=== PATIENT | female | born 1945 | race Caucasian/White ===

== ENCOUNTER 2023-06-22 09:08 | Emergency (ER) | payer MEDICARE, BC, SELFPAY ==
[2023-06-22] VITALS (7 sets, daily range): BP systolic 111–157; BP diastolic 80–96; BMI 31.1
--- NOTE | 2023-06-22 09:35 | ED.GENMED ---
History of Present Illness
General
Chief Complaint: Breathing Problem
Source: patient
Time Seen by Provider: 06/22/23 09:22
Travel History
Have you had any contact with someone who has COVID-19?: No
Do you have any symptoms of coronavirus? Fever > 100 degrees, chills, cough, shortness of breath, sore throat, loss of taste or smell, muscle aches, or headache?: Yes
Symptoms:: shortness of breath
History of Present Illness
History of Present Illness:
78-year-old female presents to the emergency room complaining of 2 separate issues. First she is experiencing discomfort in her left foot and ankle. Patient lost her balance and twisted her left foot and ankle. She has pain with weightbearing.
Injury occurred 2 weeks ago. She thought it be better by now. In addition the patient is experiencing shortness of breath with exertion. She is comfortable at rest. She denies any black or bloody stools but she does have a history of anemia.
She denies any chest pain. No fever no cough.
Past History
Past History
ED Past Medical History: HTN, NIDDM and Other (Iron deficiency anemia)
ED Past Surgical History: , Gynecological and Orthopedic
Social History
Tobacco: Non-smoker
Alcohol: None
Drug: None
Personal:
Living: with family
Employment: Retired
Phy Exam
Physical Exam
Physical Exam:
General: Awake, Alert, Oriented X3. No acute distress.
Vitals: unremarkable
Head: Atraumatic
Eyes: Pupils equal, EOMI
Throat: Airway intact, no exudates
Neck: Trachea midline
Lungs: Clear and equal b/l
Heart: Regular rate, no murmurs
Abd: Soft, Nontender, No pulsatile mass
Neuro: Nonfocal
Skin: Warm, dry, no rash
Extremities: pulses equal b/l, mild swelling noted left ankle. Mild tenderness palpation over the dorsal surface of the foot close to the ankle mortise. Also some tenderness over the lateral malleolus.
Scores
Heart Failure Risk
Heart Failure Risk Score: Yes
History of Stroke or TIA: No
History of intubation for respiratory distress: No
Heart rate on ED arrival >/= 110: No
SaO2 <90% on arrival on room air: No
HR >/=110 during 3min walk test (or too ill to perform test): No
ECG has acute ischemic changes: No
Urea >/=12mmol/L (BUN 33.6mg/dL): No
Serum CO2>/=35mmol/L: No
Troponin I or T elevated to [place] Level (0.4mg/dL): No
NT-proBNP >/=5,000ng/L (5,000pg/ml): Yes
HF Risk Score: 1
Admission Status: MEDIUM RISK 5.1% Consider observation or discharge to home with homecare & f/u visit to PCP/Commissioned Police Officer, or SNF for treatment
Course
Orders/Labs/Results
Orders:
Orders
06/22/23 09:33
Ankle, left 3 view CR [CR Ankle - Left Min 3 Views ] Urgent
Comment:
Reason For Exam: pain after fall
Foot, Left 3 View [CR Foot - Left Min 3 Views] Urgent
Comment:
Reason For Exam: pain after fall
06/22/23 09:34
CR Chest - 2 Views Urgent
Comment:
Reason For Exam: shortness of breath with exertion
06/22/23 09:38
Basic Metabolic Panel Urgent
Complete Blood Count/With Diff Urgent
06/22/23 10:21
BNP [NT-proBNP] Stat
06/22/23 10:59
Furosemide [Lasix] 20 mg IV NOW STA
06/22/23 11:53
EKG [Electrocardiogram (*1)] Routine
Reason for Study: Fatigue / Weakness
06/22/23 12:06
EKG- Treatment ONCE
Abnormal Lab Results
06/22/23
09:38
RBC 3.78 L 10^6/uL
(4.20-5.40)
Hgb 10.5 L g/dL
(12.0-16.0)
Hct 32.7 L %
(37.0-47.0)
MCHC 32.1 L g/dL
(33.0-37.0)
RDW 16.1 H %
(11.5-14.5)
Absolute Neuts (auto) 7.5 H 10^3/uL
(1.4-6.5)
Absolute Lymphs (auto) 0.7 L 10^3/uL
(1.2-3.4)
Neutrophils % 84.7 H %
(42.2-75.2)
Lymphocytes % 8.2 L %
(20.5-51.1)
Carbon Dioxide 21 L mmol/L
(22-30)
BUN 26 H mg/dl
(7-17)
Creatinine 1.1 H mg/dL
(0.6-1.0)
Glucose 211 H mg/dl
(70-99)
06/22/23 09:38
06/22/23 09:38
Vital Signs
Initial and Last Documented VS:
Initial Vital Signs
Temp Pulse Resp BP Pulse Ox
98.1 F 106 20 138/94 98
06/22/23 09:10 06/22/23 09:10 06/22/23 09:10 06/22/23 09:10 06/22/23 09:10
Last Documented Vital Signs
Temp Pulse Resp BP Pulse Ox
98.1 F 81 22 114/80 96
06/22/23 09:10 06/22/23 12:38 06/22/23 12:38 06/22/23 12:38 06/22/23 12:38
MDM/Problems Addressed
Differential Diagnosis Includes:
anemia, chf, valvular dz
MDM/Problems Addressed:
Patient appears comfortable at rest. She does have mild pulmonary edema on chest x-ray and her BNP is moderately elevated. Patient does not appear ill enough to require hospitalization. However we will initiate Lasix. IV Lasix given here.
Cardiology consultation obtained through Dr. Richardson. He recommends continuing Lasix on a as needed basis. They will arrange a more timely outpatient follow-up appointment.
Chronic conditions affecting care: HTN and Other (valvular dz)
*Radiology
Radiology exam reviewed: preliminary read by ED provider (Personally reviewed patient's chest x-ray. Mild pulmonary edema noted)
*Pulse Oximetry
Patient hypoxic: no
*Critical Care Note
Total Time (30-74mins, 75-104mins- exclusive of procedures): Not Applicable
ED Attending Note
-
Portions of this chart may have been created with voice recognition software.� Occasional wrong word or��sound alike� substitutions may have occurred due to the inherent limitations of voice recognition software.
Discharge Plan
Departure
Patient Disposition: Home (Routine Discharge)
Date of Disposition: 06/22/23
Time of Disposition: 12:27
Patient with high blood pressure during this ER visit?: No
Condition: Good
Discharge Problem:
CHF (congestive heart failure), Dyspnea on exertion, Ankle sprain
Instructions: *CBC Heart Failure Instructions, BLOOD PRESSURE
Prescriptions:
New
furosemide [Lasix] 20 mg tablet
20 mg PO DAILY PRN (Reason: Weight gain) Qty: 30 0RF
No Action
rosuvastatin 5 MG tablet
5 mg PO MOWEFR
Januvia 100 MG tablet
100 mg PO DAILY
cholecalciferol (vitamin D3) 2,000 UNITS tablet
5,000 units PO DAILY
multivitamin with folic acid [Tab-A-Pat] 1 TABLET tablet
1 tab PO DAILY
lisinopril 10 MG tablet
10 mg PO DAILY
biotin 5 mg Capsule
5 mg PO DAILY
metformin 500 mg tablet extended release 24 hr
1,500 mg PO QPM
Rx Instructions:
with Dinner
metformin 500 mg tablet extended release 24 hr
500 mg PO DAILY@0800
ferrous sulfate [Feosol] 325 MG tablet
325 mg PO DAILY
Patient Comments:
ON HOLD
acetaminophen 500 mg Tablet
1,000 mg PO Q6H PRN (Reason: mild pain)
omeprazole-sodium bicarbonate [Zegerid] 40-1.1 mg-gram Capsule
1 cap PO BID
Insulin Glargine Lantus [Lantus] 17 UNITS
Subcutaneous Insulin Syringe [Syringe-Insulin] 0 UNIT
As Directed mls/hr SC HS
Ordered By: Keaton Rogers MD
Last Taken: Unknown
Referrals:
Kendrick Ivory DO [Family Provider] -
Farzaneh Taylor CRNP [Specified Professional Personl] - 07/15/23 10:00 am
Activity Restrictions/Additional Instructions:
Follow-up with Dr. Wren as scheduled. I have sent a prescription for Lasix which you should take if you gain more than 2 to 3 pounds in 24 hours, no increasing swelling in your ankles or you feel like you are having increasing shortness of breath.
Interventions
Interventions:
*Risk Screen - Suicide Last Done: 06/22/23 09:38
*General Assessment Last Done: 06/22/23 09:38
*Neglect/Abuse Screening Last Done: 06/22/23 09:38
ED- Fall Risk Assessment Last Done: 06/22/23 09:38
*ED COVID-19 Vaccine History Last Done: 06/22/23 09:38
*Nursing Disposition Last Done: 06/22/23 12:44
ED- Cardiac Assessment Last Done: 06/22/23 09:38
ED-Musculoskeletal Assessment Last Done: 06/22/23 09:38
ED- Pulmonary Assessment Last Done: 06/22/23 09:38
Discharge Date and Time
Discharge Date/Time: 06/22/23 12:44
[2023-06-22 09:56] LABS: % Basophils 0.6 % (0-2); % Eosinophils 1.4 % (0-6); % Immature Granulocytes 0.2 % (0-0.5); % Lymphocytes 8.2 % (20.5-51.1); % Monocytes 4.9 % (1.7-9.3); % Neutrophils 84.7 % (42.2-75.2); Absolute Basophils 0.1 10^3/uL (0-0.2); Absolute Eosinophils 0.1 10^3/uL (0-0.7); Absolute Lymphocytes 0.7 10^3/uL (1.2-3.4); Absolute Monocytes 0.4 10^3/uL (0.1-0.6); Absolute Neutrophils 7.5 10^3/uL (1.4-6.5); Hematocrit 32.7 % (37.0-47.0); Hemoglobin 10.5 g/dL (12.0-16.0); Mean Corp Hgb Conc. 32.1 g/dL (33.0-37.0); Mean Corpuscular Hgb 27.8 pg (27.0-31.0); Mean Corpuscular Volume 86.5 fL (81.0-99.0); Nucleated Red Blood Cells % 0 %; Platelet Count 350 10^3/uL (130-400); Red Blood Cell Count 3.78 10^6/uL (4.20-5.40); Red Cell Dist. Width 16.1 % (11.5-14.5); White Blood Cell Count 8.8 10^3/uL (4.8-10.8)
[2023-06-22 10:16] LABS: Blood Urea Nitrogen 26 mg/dl (7-17); Chloride 107 mmol/L (98-107); Estimated Creatinine Clearance 35 ml/min; Glucose 211 mg/dl (70-99); Sodium 137 mmol/L (135-145); eGFR 51.11
[2023-06-22 10:17] LABS: Calcium 9.4 mg/dl (8.4-10.2); Carbon Dioxide 21 mmol/L (22-30)
--- NOTE | 2023-06-22 10:46 | CON.CAR ---
Addendum entered and electronically signed by Kiko Richardson MD 06/22/23 13:35:
78 yo female with PMH of aortic stenosis twisted her ankle on a curb. She also reports DOOLEY, which seems chronic. No chest pain. Exam with RRR, III/ systolic murmur at RUSB, no edema. Tele: SR, PVC's.
DOOLEY. Seems chronic. Will discharge on lasix prn.
Aortic stenosis. We will arrange for outpatient echo and follow up in our office.
Original Note:
Consultation
Consultation Request
Date/Time Consultation Requested: 06/22/23 10:40
Date/Time Consultation Performed: 06/22/23 11:00
Requesting Provider: Dr. Bonner
Performing Provider: LONDON Boyd for Dr. Richardson
Reason for Consultation: Dyspnea on exertion
Medical History
-
Chief Complaint: Left ankle pain
History of Present Illness:
Claire Bonilla is a 78 year old female (known to Dr. Garcia at [place]), aortic stenosis, GERD, hypertension, dyslipidemia, type 2 diabetes mellitus, and chronic anemia who presented to the emergency department 06/22/2023 with a chief complaint of
left ankle pain. She reports that she rolled her ankle while getting off of a very short curb. This occurred nearly 2 weeks ago. She denies improvement in her range of motion and pain despite significant time passing. Upon further evaluation she
endorsed dyspnea on exertion. She believes this started 9 years ago. Over the past 6 months she believes her dyspnea on exertion has been slightly worse. She would rated mild in severity. She denies PND, orthopnea, and weight gain. She has a
left lower extremity edema however is reporting orthopedic injury. She believes her right ankle is normal size for her. She sees Dr. Garcia and reports her valve disease has been 'stable'. She obtains her yearly echocardiograms in September. She has
known chronic anemia and this has been evaluated.
She is transferring care to Dr. Richardson.
Past Medical History
Past Medical History: GERD, HTN, Hypercholesterolemia, NIDDM, Valvular Disease (Aortic stenosis) and Other (chronic anemia)
Past Surgical History: , Gynecological, Orthopedic and Tonsilectomy
Social History
Tobacco: Non-Smoker
Personal:
Living: With Family
Family History
Family History: Reviewed & Not Pertinent
Allergies / Home Medications
Allergy/AdvReac Type Severity Reaction Status Date / Time
[id number] Reductase AdvReac muscle Verified 06/22/23 09:14
Inhibitor pain,
still
takes 3
times a
week
Medication Instructions Recorded Confirmed Type
cholecalciferol (vitamin D3) 50 5,000 units PO DAILY Supplement 07/05/20 01/28/23 History
mcg (2,000 unit) tablet
multivitamin with folic acid 400 1 tab PO DAILY Supplement 07/05/20 01/28/23 History
mcg tablet (Tab-A-Pat)
rosuvastatin 5 mg tablet 5 mg PO MOWEFR High cholesterol 07/05/20 01/28/23 History
sitagliptin phosphate 100 mg 100 mg PO DAILY Diabetes 07/05/20 01/28/23 History
tablet (Januvia)
lisinopril 10 mg tablet 10 mg PO DAILY Blood pressure 12/31/20 01/28/23 History
biotin 5 mg capsule 5 mg PO DAILY Supplement 09/12/22 01/28/23 History
metformin 500 mg tablet,extended 1,500 mg PO QPM Diabetes 09/12/22 01/28/23 History
release 24 hr
metformin 500 mg tablet,extended 500 mg PO DAILY@0800 Diabetes 09/12/22 01/28/23 History
release 24 hr
ferrous sulfate 325 mg (65 mg 325 mg PO DAILY Hormonal agent 09/13/22 01/28/23 History
iron) tablet (Feosol)
acetaminophen 500 mg tablet 1,000 mg PO Q6H PRN mild pain 01/28/23 01/28/23 History
omeprazole 40 mg-sodium 1 cap PO BID 01/28/23 01/28/23 History
bicarbonate 1.1 gram capsule
(Zegerid)
Insulin Glargine Lantus As Directed mls/hr SC HS 02/09/23 Rx
[Lantus] 17 units
Review of Systems
-
History Source: Patient
All other systems: Negative unless noted
Respiratory: No Symptoms
Cardiac: No Symptoms
Abdomen/GI: No Symptoms
Musculoskeletal: Joint Pain, Joint Swelling and Muscle Pain
Physical Exam
Vital Signs
Temp Pulse Resp BP Pulse Ox
98.1 F 87 22 123/88 96
06/22/23 09:10 06/22/23 10:30 06/22/23 10:30 06/22/23 10:21 06/22/23 10:30
Lab Results
06/22/23 09:38
06/22/23 09:38
Physical Exam
General: Well Developed, Well Nourished, No Apparent Distress and Comfortable
HEENT: Normocephalic and Anicteric
Respiratory: Clear and Non Labored Respirations
Cardiac: S1/S2, Regular Rhythm and Murmur (III/)
Breast: Deferred by me
GI: Soft, Non Tender, Non Distended and Normal Bowel Sounds
Rectal: Deferred by Provider
Genito-urinary: No Costovertebral Tender
Musculoskeletal: No Clubbing, No Cyanosis and Edema (Left ankle > right)
Skin: Warm and Dry
Neuro: AO x 3
Hematologic/Lymphatic: No Lymphadenopathy
Psych: Calm
Impression / Plan
-
Left ankle pain, per attending
Aortic stenosis
-Gradients unknown
-Reports DOOLEY for 6 months
-No orthopnea, no PND
-proBNP elevated at 6530
-CXR with slight prominence of central pulmonary vasculature and subtle interstitial prominence
-Furosemide 20mg IV x 1 given by ER physician
HTN, stable, chronic
HLD, tolerating rosuvastatin
CKD3a, creatinine clearance 35, GFR 51
Anemia, iron deficiency, chronic, denies acute bleeding
Type II DM
Prior T10-L1 fusion
Data Reviewed
-
Labs: Labs Reviewed by me
Old Records: Requested
[2023-06-22 10:52] LABS: NT-proBNP 6530 pg/ml
[2023-06-22] MEDS: LASIX 20 MG IV (11:04)
== END 2023-06-22 12:44 | disposition home or self-care (01) ==
LOC: EMR 09:08
PROVIDERS: EMERGENCY PHYSICIAN Emergency Medicine; FAMILY PHYSICIAN Family Medicine
DX: I50.9 Heart failure, unspecified (principal); R06.00 Dyspnea, unspecified; S93.402A Sprain of unspecified ligament of left ankle, initial encounter; X50.1XXA Overexertion from prolonged static or awkward postures, initial encounter; I13.0 Hypertensive heart and chronic kidney disease with heart failure and stage 1 through stage 4 chronic kidney disease, or unspecified chronic kidney disease; N18.31 Chronic kidney disease, stage 3a; E11.22 Type 2 diabetes mellitus with diabetic chronic kidney disease; D50.9 Iron deficiency anemia, unspecified; E78.00 Pure hypercholesterolemia, unspecified; I35.0 Nonrheumatic aortic (valve) stenosis; K21.9 Gastro-esophageal reflux disease without esophagitis; Z83.3 Family history of diabetes mellitus; Z83.49 Family history of other endocrine, nutritional and metabolic diseases; Z98.1 Arthrodesis status
CPT/HCPCS: 99283; 96374; 71046; 73610; 73630; 80048; 83880; 85025

== ENCOUNTER 2023-06-29 14:14 | Inpatient (IN) | payer MEDICARE, BC, SELFPAY ==
[2023-06-29] VITALS (12 sets, daily range): BP systolic 118–162; BP diastolic 60–102; BMI 30.7; BMI 29.5
--- NOTE | 2023-06-29 08:56 | ED.GENMED ---
History of Present Illness
<Barrie Calvin Jr., PA-C - Last Filed: 06/29/23 11:45>
General
Chief Complaint: Breathing Problem
Source: patient and spouse
Exam Limitations: none
Time Seen by Provider: 06/29/23 08:28
Nursing documentation reviewed up to this point in time: agreed with
Travel History
Have you had any contact with someone who has COVID-19?: No
Do you have any symptoms of coronavirus? Fever > 100 degrees, chills, cough, shortness of breath, sore throat, loss of taste or smell, muscle aches, or headache?: No
History of Present Illness
History of Present Illness:
78-year-old female with past medical history of IDDM, hypertension hyperlipidemia, anemia presenting to the emergency department today with concerns of dyspnea on exertion worsening over the past few weeks. She was seen here after injuring her
ankle 1 week ago at the time had some similar concerns was given Lasix did try this at home without any improvement. She denies specific chest pain does have some mild shortness of breath even at rest which is new over the past 24 hours. Denies
any fevers or recent illness.
Past History
<Barrie Calvin Jr., PA-C - Last Filed: 06/29/23 11:45>
Past History
ED Past Medical History: HTN, NIDDM and Other (Iron deficiency anemia)
ED Past Surgical History: , Gynecological and Orthopedic
Social History
Tobacco: Non-smoker
Alcohol: None
Drug: None
Personal:
Living: with family
Employment: Retired
Review of Systems
<Barrie Calvin Jr., PA-C - Last Filed: 06/29/23 11:45>
Review of Systems
Allergies reviewed?: Yes
All Other Systems: ROS reviewed and negative except as documented in HPI and ROS
Phy Exam
<Barrie Calvin Jr., PA-C - Last Filed: 06/29/23 11:45>
Physical Exam
Physical Exam:
GENERAL: Alert , in no apparent distress
EYE: pupils equal and reactive
NECK: Supple, no significant adenopathy.
ENT: o/p clr, mmm.
CARDIAC: Regular rate and rhythm .
LUNGS: Clear breath sounds bilaterally, no acute respiratory distress, no wheezes/rales/rhonchi
ABDOMEN: Soft, without focal tenderness, no r/g, no cvat
NEUROLOGICAL: Alert and oriented, no focal neuro deficits
SKIN: Warm and dry, skin intact.
MUSCULOSKELETAL: No edema, well perfused.
PSYCH: Normal and appropriate interaction.
Scores
<Barrie Calvin Jr., PA-C - Last Filed: 06/29/23 11:45>
Heart Failure Risk
Heart Failure Risk Score: Not Applicable
Course
<Barrie Calvin Jr., PA-C - Last Filed: 06/29/23 11:45>
Orders/Labs/Results
Orders:
Orders
06/29/23 08:42
Cardiac Monitoring- Treatment ONCE
Venous Doppler Lwr Ext Left [US Periph Venous LOWER Ext LT] Urgent
Comment:
Reason For Exam: lef tleg swelling
06/29/23 08:43
Electrocardiogram (*1) Stat
Reason for Study: Other
Other Reason for Exam: chest pain
EKG- Treatment ONCE
CR Chest - 2 Views Urgent
Comment:
Reason For Exam: sob
06/29/23 09:07
Complete Blood Count/With Diff Urgent
PTT Urgent
Prothrombin Time Urgent
06/29/23 09:39
Comprehensive Metabolic Panel Urgent
Magnesium Urgent
06/29/23 09:40
NT-proBNP Urgent
Troponin I Urgent
06/29/23 10:42
Furosemide [Lasix] 40 mg IV NOW STA
Abnormal Lab Results
06/29/23 06/29/23
09:07 09:39
RBC 3.70 L 10^6/uL
(4.20-5.40)
Hgb 10.4 L g/dL
(12.0-16.0)
Hct 31.6 L %
(37.0-47.0)
MCHC 32.9 L g/dL
(33.0-37.0)
RDW 16.2 H %
(11.5-14.5)
Plt Count 424 H D 10^3/uL
(130-400)
Absolute Neuts (auto) 8.9 H 10^3/uL
(1.4-6.5)
Absolute Lymphs (auto) 0.6 L 10^3/uL
(1.2-3.4)
Neutrophils % 89.1 H %
(42.2-75.2)
Lymphocytes % 5.6 L %
(20.5-51.1)
BUN 34 H mg/dl
(7-17)
Glucose 187 H mg/dl
(70-99)
Magnesium 1.2 L mg/dl
(1.6-2.3)
AST 218 H U/L
(14-36)
ALT 135 H U/L
(0-35)
Alkaline Phosphatase 156 H U/L
(38-126)
Total Protein 6.2 L g/dl
(6.3-8.2)
06/29/23 09:07
06/29/23 09:39
Vital Signs
Initial and Last Documented VS:
Initial Vital Signs
Temp Pulse Resp BP Pulse Ox
98.5 F 115 18 158/100 97
06/29/23 08:26 06/29/23 08:26 06/29/23 08:26 06/29/23 08:26 06/29/23 08:26
Last Documented Vital Signs
Temp Pulse Resp BP Pulse Ox
98.5 F 104 18 147/82 97
06/29/23 08:26 06/29/23 11:00 06/29/23 08:26 06/29/23 11:00 06/29/23 11:00
<Kendrick Delaney MD - Last Filed: 06/29/23 11:15>
Orders/Labs/Results
Orders:
Orders
06/29/23 08:42
Cardiac Monitoring- Treatment ONCE
Venous Doppler Lwr Ext Left [US Periph Venous LOWER Ext LT] Urgent
Comment:
Reason For Exam: lef tleg swelling
06/29/23 08:43
Electrocardiogram (*1) Stat
Reason for Study: Other
Other Reason for Exam: chest pain
EKG- Treatment ONCE
CR Chest - 2 Views Urgent
Comment:
Reason For Exam: sob
06/29/23 09:07
Complete Blood Count/With Diff Urgent
PTT Urgent
Prothrombin Time Urgent
06/29/23 09:39
Comprehensive Metabolic Panel Urgent
Magnesium Urgent
06/29/23 09:40
NT-proBNP Urgent
Troponin I Urgent
06/29/23 10:42
Furosemide [Lasix] 40 mg IV NOW STA
Abnormal Lab Results
06/29/23 06/29/23
09:07 09:39
RBC 3.70 L 10^6/uL
(4.20-5.40)
Hgb 10.4 L g/dL
(12.0-16.0)
Hct 31.6 L %
(37.0-47.0)
MCHC 32.9 L g/dL
(33.0-37.0)
RDW 16.2 H %
(11.5-14.5)
Plt Count 424 H D 10^3/uL
(130-400)
Absolute Neuts (auto) 8.9 H 10^3/uL
(1.4-6.5)
Absolute Lymphs (auto) 0.6 L 10^3/uL
(1.2-3.4)
Neutrophils % 89.1 H %
(42.2-75.2)
Lymphocytes % 5.6 L %
(20.5-51.1)
BUN 34 H mg/dl
(7-17)
Glucose 187 H mg/dl
(70-99)
Magnesium 1.2 L mg/dl
(1.6-2.3)
AST 218 H U/L
(14-36)
ALT 135 H U/L
(0-35)
Alkaline Phosphatase 156 H U/L
(38-126)
Total Protein 6.2 L g/dl
(6.3-8.2)
06/29/23 09:07
06/29/23 09:39
Vital Signs
Initial and Last Documented VS:
Initial Vital Signs
Temp Pulse Resp BP Pulse Ox
98.5 F 115 18 158/100 97
06/29/23 08:26 06/29/23 08:26 06/29/23 08:26 06/29/23 08:26 06/29/23 08:26
Last Documented Vital Signs
Temp Pulse Resp BP Pulse Ox
98.5 F 104 18 147/82 97
06/29/23 08:26 06/29/23 11:00 06/29/23 08:26 06/29/23 11:00 06/29/23 11:00
<Barrie Calvin Jr., PA-C - Last Filed: 06/29/23 11:45>
MDM/Problems Addressed
MDM/Problems Addressed:
78-year-old female presenting to the emergency department today with concerns of worsening dyspnea on exertion over the past few months but specifically over the past few weeks. Tried taking it at home without improvement. Does have a known
history of aortic stenosis. Upon arrival heart rate is elevated in the 110s. Blood pressure slightly elevated otherwise pulse ox at rest 96 to 97%. She denies specific chest pain at this point. She claims that her exercise tolerance is no more
than a few steps which is much worse than over the past few weeks. BNP elevated to 5450 chest x-ray with worsening edema symptoms appear to be consistent with likely heart failure plan for admission for further evaluation and monitoring.
<Barrie aClvin Jr., PA-C - Last Filed: 06/29/23 11:45>
*Critical Care Note
Total Time (30-74mins, 75-104mins- exclusive of procedures): Not Applicable
ED Attending Note
<Barrie Calvin Jr., PA-C - Last Filed: 06/29/23 11:45>
-
Portions of this chart may have been created with voice recognition software.� Occasional wrong word or��sound alike� substitutions may have occurred due to the inherent limitations of voice recognition software.
<Kendrick Delaney MD - Last Filed: 06/29/23 11:15>
ED Attending Note
Patient seen and examined by attending physician: Yes
I performed the substantive portion of visit, reviewed & personally made and approve the management plan that is documented in note by myself or MARIO.: Yes
I performed a history and physical exam of patient and discussed management with resident, I reviewed resident's note and agree with documented findings and plan of care.: No
ED Attending Note:
78-year-old female increase shortness of breath progressive over the last week. Diuretic adjusted by her hose tubing backer last week. No chest pain. Significant shortness of breath with any exertion.
GENERAL: Alert and oriented. Mild tachypnea at rest
EYE: Orbits normal.
NECK: Supple, no significant adenopathy.
ENT: Pharynx without erythema
CARDIAC: Regular rate and rhythm with midsystolic murmur
LUNGS: Mild tachypnea. Bilateral rails
ABDOMEN: Soft, without focal tenderness or distention
NEUROLOGICAL: Alert and oriented , grossly non-focal
SKIN: Warm and dry, no rash or lesion, no discoloration, skin intact.
MUSCULOSKELETAL: Mild bilateral lower extremity pitting edema
PSYCH: Normal and appropriate interaction.
EKG with new left bundle branch block. Chest x-ray shows CHF. thinks the left bundle may be intermittent although we have no previous EKGs that show a left bundle. Significant exertional component. Admission for further care and workup.
Discharge Plan
Departure
Patient Disposition: Admit
Date of Disposition: 06/29/23
Time of Disposition: 10:51
Admit to: Telemetry
Admit to doctor: Saqib
Presentation/result/management discussed w/ accepting MD/DO: Hospitalist
Patient with high blood pressure during this ER visit?: No
Condition: Good
Covid-19: Not Applicable
Discharge Problem:
Heart failure, Left bundle branch block
Prescriptions:
No Action
rosuvastatin 5 MG tablet
5 mg PO MOWEFR@0800
Januvia 100 MG tablet
100 mg PO DAILY
lisinopril 10 MG tablet
10 mg PO DAILY
biotin 5 mg Capsule
5 mg PO DAILY
metformin 500 mg tablet extended release 24 hr
1,500 mg PO QPM
metformin 500 mg tablet extended release 24 hr
500 mg PO DAILY
ferrous sulfate [Feosol] 325 MG tablet
325 mg PO DAILY
Patient Comments:
fluorouracil 5 % Cream
1 applic TOPICAL HS
Patient Comments:
06/29/2023, apply to face HS x2 weeks; per pt., she stops using this med. on Thursday (07/03/2023). Pt. filled this med. on 06/18/2023.
aspirin 81 mg Tablet,Delayed Release (Dr/Ec)
81 mg PO MOWEFR@0800
Centrum Silver Tablet
1 tab PO DAILY
omeprazole-sodium bicarbonate [Zegerid OTC] 20-1.1 mg-gram Capsule
1 cap PO BID
insulin glargine [Lantus Solostar U-100 Insulin] 100 unit/mL (3 mL) Insulin Pen
12 - 14 unit SC .SEE BELOW
Patient Comments:
06/29/2023, per pt., she uses this med. on a sliding scale; if her BS is around 210, she will take 12 units; if her BS is closer to 300, she will take 14 units. She injects this med. around dinner time every night.
cholecalciferol (vitamin D3) 125 mcg (5,000 unit) Tablet
125 mcg PO DAILY
omega 9-cog-gyq-fish oil [Fish Oil] 1,000 mg (120 mg-180 mg) Capsule
1 cap PO DAILY
furosemide [Lasix] 20 mg tablet
20 mg PO DAILY PRN (Reason: Weight Gain)
Referrals:
Kendrick Ivory DO [Family Provider] -
Interventions
Interventions:
*Risk Screen - Suicide Last Done: 06/29/23 08:26
*General Assessment Last Done: 06/29/23 08:26
*Neglect/Abuse Screening Last Done: 06/29/23 08:26
*ED COVID-19 Vaccine History Last Done: 06/29/23 08:26
ED- Cardiac Assessment Last Done: 06/29/23 10:56
ED- Pulmonary Assessment Last Done: 06/29/23 10:56
[2023-06-29 09:18] LABS: % Basophils 0.5 % (0-2); % Eosinophils 0.1 % (0-6); % Immature Granulocytes 0.4 % (0-0.5); % Lymphocytes 5.6 % (20.5-51.1); % Monocytes 4.3 % (1.7-9.3); % Neutrophils 89.1 % (42.2-75.2); Absolute Basophils 0.1 10^3/uL (0-0.2); Absolute Lymphocytes 0.6 10^3/uL (1.2-3.4); Absolute Monocytes 0.4 10^3/uL (0.1-0.6); Absolute Neutrophils 8.9 10^3/uL (1.4-6.5); Hematocrit 31.6 % (37.0-47.0); Hemoglobin 10.4 g/dL (12.0-16.0); Mean Corp Hgb Conc. 32.9 g/dL (33.0-37.0); Mean Corpuscular Hgb 28.1 pg (27.0-31.0); Mean Corpuscular Volume 85.4 fL (81.0-99.0); Mean Platelet Volume 10.3 fL (7.4-10.4); Nucleated Red Blood Cells % 0 %; Platelet Count 424 10^3/uL (130-400); Red Cell Dist. Width 16.2 % (11.5-14.5)
[2023-06-29 09:30] LABS: INR 1.04; PT 13.4 Sec (11.4-14.6)
[2023-06-29 09:31] LABS: APTT 26.9 Sec (23.4-35.0)
[2023-06-29 10:03] LABS: ALT (SGPT) 135 U/L (0-35); AST (SGOT) 218 U/L (14-36); Albumin 3.8 g/dl (3.5-5.0); Alkaline Phosphatase 156 U/L (38-126); Blood Urea Nitrogen 34 mg/dl (7-17); Calcium 9.4 mg/dl (8.4-10.2); Carbon Dioxide 26 mmol/L (22-30); Chloride 106 mmol/L (98-107); Estimated Creatinine Clearance 44 ml/min; Glucose 187 mg/dl (70-99); Magnesium 1.2 mg/dl (1.6-2.3); Potassium 4.4 mmol/L (3.5-5.1); Sodium 138 mmol/L (135-145); Total Bilirubin 0.4 mg/dl (0.2-1.3); Total Protein 6.2 g/dl (6.3-8.2); eGFR > 60.00
[2023-06-29 10:15] LABS: NT-proBNP 5450 pg/ml; Troponin I < 0.012 ng/ml
[2023-06-29] MEDS: LASIX 40 MG IV ×2 (10:49→17:44)
--- NOTE | 2023-06-29 12:12 | HPS.HSE ---
Family Physician
-
Family Physician: Kendrick Ivory
Chief Complaint
-
Shortness of breath
History of Present Illness
78F DM HTN HLD hx Aortic Stenosis GERD p/w progressive dyspnea past few weeks. Patient was here for fall sprained ankle a week ago when she was first diagnosed with heart failure. Otherwise, relatively stable at the time, patient was discharge
with Lasix 20 mg daily PO daily as needed for weight gain. Patient reports only using lasix once over the last week given relatively stable weight. Shortness of breath however persisted eventually present at rest as well, prompting pt to re-visit
ED. Place on nasal cannula for symptom mgmt sob. IV lasix was given with subsequent improvement in symptoms. BNP elevated 5000s though improved from 6000s prior week. Denies chest pain palpitations. Troponin negative.
Medical History
Past Medical History
Past Medical History: Reports Other (as above)
Past Surgical History: Reports Other (as above)
Social History
Tobacco: Non-smoker
Alcohol: Occasional
Drug: None
Personal:
Living: With Family
Employment: Not Employed
Family History
Family History: Not pertinent (reviewed)
Allergies / Home Medications
Allergies reflects when Allergies were last updated in [facility].
Home Medications with original date entered in [facility]
Allergy/Medication List:
Allergies
Allergy/AdvReac Type Severity Reaction Status Date / Time
Pocofuf-FAB-PmK Reductase AdvReac muscle Verified 06/29/23 08:28
Inhibitor pain,
still
takes 3
times a
week
Home Medications
rosuvastatin 5 mg tablet 5 mg PO MOWEFR@0800 High cholesterol 07/05/20
sitagliptin phosphate 100 mg tablet (Januvia) 100 mg PO DAILY Diabetes 07/05/20
lisinopril 10 mg tablet 10 mg PO DAILY Blood pressure 12/31/20
biotin 5 mg capsule 5 mg PO DAILY Supplement 09/12/22
metformin 500 mg tablet,extended release 24 hr 1,500 mg PO QPM Diabetes 09/12/22
metformin 500 mg tablet,extended release 24 hr 500 mg PO DAILY Diabetes 09/12/22
ferrous sulfate 325 mg (65 mg iron) tablet (Feosol) 325 mg PO DAILY Hormonal agent 09/13/22
aspirin 81 mg tablet,delayed release 81 mg PO MOWEFR@0800 06/29/23
cholecalciferol (vitamin D3) 125 mcg (5,000 unit) tablet 125 mcg PO DAILY 06/29/23
fluorouracil 5 % topical cream 1 applic topical HS apply to face 06/29/23
furosemide 20 mg tablet (Lasix) 20 mg PO DAILY PRN Weight Gain 06/29/23
insulin glargine 100 unit/mL (3 mL) subcutaneous pen (Lantus Solostar U-100 Insulin) 12 - 14 unit SC .SEE BELOW 06/29/23
dfitsjsgtcac-chkxceag-lcscll tablet 1 tab PO DAILY 06/29/23
omega 0-koh-fze-fish oil 1,000 mg (120 mg-180 mg) capsule (Fish Oil) 1 cap PO DAILY 06/29/23
omeprazole 20 mg-sodium bicarbonate 1.1 gram capsule (Zegerid OTC) 1 cap PO BID 06/29/23
Review of Systems
-
A 12 point ROS was completed and negative except as noted: Yes
Constitutional: Reports Other (as below)
Physical Exam
Vital Signs
Vital Signs
Temp Pulse Resp BP Pulse Ox
98.5 F 104 18 147/82 97
06/29/23 08:26 06/29/23 11:00 06/29/23 08:26 06/29/23 11:00 06/29/23 11:00
Physical Exam
General: Other (as below)
Laboratory Results
-
06/29/23 09:07
06/29/23 09:39
Laboratory Results
PT 13.4 Sec (11.4-14.6) 06/29/23 09:07
INR 1.04 06/29/23 09:07
APTT 26.9 Sec (23.4-35.0) 06/29/23 09:07
Total Bilirubin 0.4 mg/dl (0.2-1.3) 06/29/23 09:39
AST 218 U/L (14-36) H 06/29/23 09:39
ALT 135 U/L (0-35) H 06/29/23 09:39
Alkaline Phosphatase 156 U/L (38-126) H 06/29/23 09:39
Troponin I < 0.012 ng/ml 06/29/23 09:40
Impression/Plan
-
ROS
General: Denies fever chills night sweats unexpected weight loss
Neuro: Denies seizure shaking loss of consciousness dizziness vertigo
Psych: denies depression hallucinations confusion manic episodes
Endocrine: Denies polyuria polydipsia polyphagia heat/cold intolerance
HEENT: Denies blindness visual disturbances epistaxis
Pulmonary: Shortness of breath dyspnea on exertion orthopena
Cardiovascular: denies chest pain palpitations reports lower ext swelling
Hematology: denies signs symptoms of anemia easy bruising/bleeding
Gastrointestinal: denies nausea vomiting diarrhea constipation hematemesis hematochezia melena
Genito-Urinary: denies retention incontinence dysuria
Musculoskeletal: denies joint pain weakness
Dermatology: denies rash laceration bruising
Physical Exam
General: No pallor, cyanosis, or jaundice.
HEENT: Throat clear. PERRLA Normocephalic atraumatic
RESPIRATORY: Lungs clear to auscultation. No crackles wheezes stridor
CVS: S1, S2 RRR. Systolic murmur 3/6
ABDOMEN: Soft, non-tender. No distension. BS+/normal.
EXTREMITIES: No peripheral cyanosis. Lower ext swelling b/l +1 pitting edema. Swollen left ankle
OB/GYN NURSE: AOx3.
IMPRESSION:
78F DM HTN HLD hx Aortic Stenosis GERD p/w progressive dyspnea past few weeks. Patient was here for fall sprained ankle a week ago when she was first diagnosed with heart failure. Otherwise, relatively stable at the time, patient was discharge
with Lasix 20 mg daily PO daily as needed for weight gain. Patient reports only using lasix once over the last week given relatively stable weight. Shortness of breath however persisted eventually present at rest as well, prompting pt to re-visit
ED. Place on nasal cannula for symptom mgmt sob. IV lasix was given with subsequent improvement in symptoms. BNP elevated 5000s though improved from 6000s prior week. Denies chest pain palpitations. Troponin negative. Chest x-ray suggestive of
heart failure
PLAN:
#Heart failure unspecified type
#History of aortic stenosis
Telemetry admit
Check echo
Cardio eval
Continue IV Lasix 40 mg twice daily
Daily weight I/O fluid restriction
PT OT eval
Left lower extremity venous duplex negative for DVT
#Diabetes
Continue home metformin Jardiance
Medium dose sliding scale
monitor and titrate insulin regimen as necessary
follow up HgA1c
#Hypertension
Continue home lisinopril with holding parameters
#Hyperlipidemia
Continue home statin
#GERD
Home PPI converted to Protonix twice daily while in hospital
#Iron deficiency anemia
Continue home oral iron supplementation
Left ankle sprain
Tylenol as needed
PT OT eval as above
#Mild transaminitis
Possibly due to heart failure
Monitor for now
DVT prophylaxis Lovenox
GI prophylaxis Protonix
Meds reconciled and resumed as appropriate
Full code as per patient
Discussed with patient and her Bill at bedside
I spent a total of 78 minutes with the patient or on the floor. More than 50% of this time involved counseling and coordination of care.
--- NOTE | 2023-06-29 13:47 | CON.CAR ---
Addendum entered and electronically signed by Kiko Richardson MD 06/29/23 16:16:
78 yo female with PMH of aortic stenosis is admitted with SOB/DOOLEY. There is no chest pain. Exam with RRR, III/ systolic murmur at RUSB, no edema. Cr 0.9.
DOOLEY. Concern for acute HF in setting of aortic stenosis, degree unknown. Check echo. Continue IV lasix.
Original Note:
Consultation
Consultation Request
Date/Time Consultation Requested: 06/29/23 13:30
Date/Time Consultation Performed: 06/29/23 13:30
Requesting Provider: Dr. Garcia
Performing Provider: LONDON Boyd for Dr. Richardson
Reason for Consultation: Acute HFpEF
Medical History
-
Chief Complaint: Shortness of breath
History of Present Illness:
Claire Bonilla is a 78 year old female (known to Dr. Garcia at [place]), aortic stenosis, GERD, hypertension, dyslipidemia, type 2 diabetes mellitus, and chronic anemia who presented to the emergency department today with shortness of breath. She
was seen in the ER on 06/22/2023 with a chief complaint of left ankle pain but endorsed chronic shortness of breath. She was given a prescription of furosemide 20mg PRN. Over the past week she has been experiencing worsening DOOLEY. She developed both
orthopnea and PND. She took the furosemide once and did not feel that it made her urinate any more than usual. She has a 2-3 pound weight gain on her home scale. She reports chronic LE edema.
Past Medical History
Past Medical History: GERD, HTN, Hypercholesterolemia, NIDDM, Valvular Disease (Aortic stenosis) and Other (chronic anemia)
Past Surgical History: , Gynecological and Tonsilectomy
Social History
Tobacco: Non-Smoker
Personal:
Living: With Family
Employment: Retired
Family History
Family History: Reviewed & Not Pertinent
Allergies / Home Medications
Allergy/AdvReac Type Severity Reaction Status Date / Time
Zraefez-BLO-MvU Reductase AdvReac muscle Verified 06/29/23 08:28
Inhibitor pain,
still
takes 3
times a
week
Medication Instructions Recorded Confirmed Type
rosuvastatin 5 mg tablet 5 mg PO MOWEFR@0800 High 07/05/20 06/29/23 History
cholesterol
sitagliptin phosphate 100 mg 100 mg PO DAILY Diabetes 07/05/20 06/29/23 History
tablet (Januvia)
lisinopril 10 mg tablet 10 mg PO DAILY Blood pressure 12/31/20 06/29/23 History
biotin 5 mg capsule 5 mg PO DAILY Supplement 09/12/22 06/29/23 History
metformin 500 mg tablet,extended 1,500 mg PO QPM Diabetes 09/12/22 06/29/23 History
release 24 hr
metformin 500 mg tablet,extended 500 mg PO DAILY Diabetes 09/12/22 06/29/23 History
release 24 hr
ferrous sulfate 325 mg (65 mg 325 mg PO DAILY Hormonal agent 09/13/22 06/29/23 History
iron) tablet (Feosol)
aspirin 81 mg tablet,delayed 81 mg PO MOWEFR@0800 06/29/23 06/29/23 History
release
cholecalciferol (vitamin D3) 125 125 mcg PO DAILY 06/29/23 06/29/23 History
mcg (5,000 unit) tablet
fluorouracil 5 % topical cream 1 applic topical HS apply to face 06/29/23 06/29/23 History
furosemide 20 mg tablet (Lasix) 20 mg PO DAILY PRN Weight Gain 06/29/23 06/29/23 History
insulin glargine 100 unit/mL (3 12 - 14 unit SC .SEE BELOW 06/29/23 06/29/23 History
mL) subcutaneous pen (Lantus
Solostar U-100 Insulin)
nxsnrpnellct-kxrdsnbs-gemhxx tablet 1 tab PO DAILY 06/29/23 06/29/23 History
omega 6-xcp-sth-fish oil 1,000 mg 1 cap PO DAILY 06/29/23 06/29/23 History
(120 mg-180 mg) capsule (Fish Oil)
omeprazole 20 mg-sodium 1 cap PO BID 06/29/23 06/29/23 History
bicarbonate 1.1 gram capsule
(Zegerid OTC)
Review of Systems
-
History Source: Patient
All other systems: Negative unless noted
Constitutional: No Symptoms
Respiratory: Trouble Breathing
Cardiac: Other (orthopnea & PND)
Abdomen/GI: No Symptoms
: No Symptoms
Musculoskeletal: No Symptoms
Physical Exam
Vital Signs
Temp Pulse Resp BP Pulse Ox
98.5 F 91 18 120/87 98
06/29/23 08:26 06/29/23 13:15 06/29/23 08:26 06/29/23 13:00 06/29/23 13:15
Lab Results
06/29/23 09:07
06/29/23 09:39
Troponin I < 0.012 ng/ml 06/29/23 09:40
Htz-M-Segwvcarjuq Pept 5450 pg/ml 06/29/23 09:40
Physical Exam
General: Well Developed, Well Nourished, No Apparent Distress and Comfortable
HEENT: Normocephalic, Anicteric and Moist Mucous Membranes
Respiratory: Clear (Diminished) and Accessory Resp Muscle Use
Cardiac: S1/S2, Regular Rhythm and Murmur (III/)
Breast: Deferred by me
GI: Soft, Non Tender, Non Distended and Normal Bowel Sounds
Rectal: Deferred by Provider
Genito-urinary: No Costovertebral Tender
Musculoskeletal: No Clubbing and No Cyanosis
Skin: Warm and Dry
Neuro: AO x 3
Hematologic/Lymphatic: No Lymphadenopathy
Psych: Calm
Impression / Plan
-
DOOLEY, acute on chronic - plan as below
HFpEF, acute on chronic, severe, requiring hospitalization
-ROS positive for orthopnea and PND with 2-3 pound weight gain
-Diuresis with furosemide 40mg IV BID
-Case Mgmt to myrick SGLT2i
-Daily weight, I/Os, and BMP with diuresis
-Heart failure education
Aortic stenosis
-Gradients unknown
-Reports chronic DOOLEY
-No orthopnea, no PND
-Echocardiogram ordered
LBBB, appears new, perhaps rate related
Transaminitis, in the setting of acute heart failure, trend
HTN, stable, chronic
HLD, tolerating rosuvastatin
CKD3a, follow with diuresis
Anemia, iron deficiency, chronic, denies acute bleeding
Type II DM, Hgba1c pending, per primary
Prior T10-L1 fusion
Data Reviewed
-
EKG: Report Reviewed by me (Sinus tachycardia, LBBB, rate 109)
Radiology: Report Reviewed by me (CXR: Mild cardiomegaly and increased pulmonary vascularity suggesting CHF with likely small bilateral pleural effusions.)
Labs: Labs Reviewed by me
Old Records: Reviewed
[2023-06-29 17:26] LABS: Glucose - Point of Care 137 mg/dl (70-99)
[2023-06-29] MEDS: LOVENOX 40 MG SC (17:44)
[2023-06-29] MEDS: NOVOLOG FLEXPEN-MODERATE RESISTANCE SC (17:50)
[2023-06-29] MEDS: GLUCOPHAGE XR EXTENDED RELEASE 1500 MG PO (17:58)
[2023-06-29] MEDS: PROTONIX 40 MG PO (20:08)
[2023-06-29 21:32] LABS: Glucose - Point of Care 467 mg/dl (70-99)
[2023-06-29 22:34] LABS: Glucose 202 mg/dl (70-99)
[2023-06-29] MEDS: EFUDEX-40 1 APPLIC TOPICAL (22:36)
[2023-06-30] VITALS (8 sets, daily range): BP systolic 94–156; BP diastolic 51–83; PULSE 91; O2SAT 98; BMI 28.5
--- NOTE | 2023-06-30 07:08 | W.PN.HOSP.TC ---
Today's Communication/Plan
-
cont diuresis
npo after midnight for Cath
PT/OT
Assessment / Plan
Assessment / Plan
Physical Exam
General: No pallor, cyanosis, or jaundice.
HEENT: Throat clear. PERRLA Normocephalic atraumatic
RESPIRATORY: Lungs clear to auscultation. No crackles wheezes stridor
CVS: S1, S2 RRR.� Systolic murmur /
ABDOMEN: Soft, non-tender. No distension. BS+/normal.
EXTREMITIES: No peripheral cyanosis. Lower ext swelling b/l +1 pitting edema.� Swollen left ankle
HERB GROWER: AOx3.
IMPRESSION:
78F DM HTN HLD hx Aortic Stenosis GERD p/w progressive dyspnea past few weeks.� Patient was here for fall sprained ankle a week ago when she was first diagnosed with heart failure.� Otherwise, relatively stable at the time, patient was discharge
with Lasix 20 mg daily PO daily as needed for weight gain.� Patient reports only using lasix once over the last week given relatively stable weight.� Shortness of breath however persisted eventually present at rest as well, prompting pt to re-visit
ED.� Place on nasal cannula for symptom mgmt sob.� IV lasix was given with subsequent improvement in symptoms.� BNP elevated 5000s though improved from 6000s prior week.� Denies chest pain palpitations.� Troponin negative.� Chest x-ray suggestive of
heart failure
PLAN:
#Acute on chronic HFrEF
#History of aortic stenosis
Telemetry admit
Continue IV Lasix 40 mg twice daily
Daily weight I/O fluid restriction
PT OT eval appreciated HH
ECHO appreciated EF 30-35% Stage II diastolic dysfunction mod severe and MR
Cardio eval appreciated NPO after midnight for Cath 07/01
Left lower extremity venous duplex negative for DVT
#Diabetes
Continue home metformin Jardiance
Medium dose sliding scale
monitor and titrate insulin regimen as necessary
A1c 7.4
#Hypertension
Continue home lisinopril with holding parameters
#Hyperlipidemia
Continue home statin
#GERD
Home PPI converted to Protonix twice daily while in hospital
#Iron deficiency anemia
Continue home oral iron supplementation
Left foot pain
Tylenol as needed
PT OT eval as above
#Mild transaminitis
Possibly due to heart failure
Monitor for now
DVT prophylaxis Lovenox
GI prophylaxis Protonix
Meds reconciled and resumed as appropriate
Full code as per patient
Discussed with patient and her Bill at bedside
I spent a total of 56 � minutes with the patient or on the floor. More than 50% of this time involved counseling and coordination of care.
Anticipated Discharge: 24 - 48 hours
Subjective/Interval History
-
Date of Service: June 30, 2023
weaned off oxygen supplementation. Reports feeling well. 13 lb weight loss noted past 24 hours.
Objective Data
-
Labs:
Laboratory Results
06/29/23 06/30/23
22:09 06:00
WBC Pending
Hgb Pending
Hct Pending
Plt Count Pending
Sodium Pending
Potassium Pending
Chloride Pending
Carbon Dioxide Pending
BUN Pending
Creatinine Pending
Glucose 202 H Pending
Calcium Pending
Total Bilirubin Pending
AST Pending
ALT Pending
Alkaline Phosphatase Pending
Vital Signs:
Vital Signs
Temp Pulse Resp BP Pulse Ox
98.1 F 83 18 122/58 96
06/30/23 03:39 06/30/23 03:39 06/30/23 03:39 06/30/23 03:39 06/30/23 03:39
I&O
06/29/23 06/30/23 07/01/23
06:59 06:59 06:59
Intake Total 300 / 300
Balance 300 / 300
[2023-06-30 07:46] LABS: Glucose - Point of Care 182 mg/dl (70-99)
[2023-06-30] MEDS: ZESTRIL 10 MG PO (08:10)
[2023-06-30] MEDS: GLUCOPHAGE XR EXTENDED RELEASE 500 MG PO (08:10)
[2023-06-30] MEDS: VITAMIN D3 (cholecalciferol) 125 MCG PO (08:10)
[2023-06-30] MEDS: PROTONIX 40 MG PO ×2 (08:10→19:55)
[2023-06-30] MEDS: JANUVIA 100 MG PO (08:10)
[2023-06-30] MEDS: THERAGRAN 1 TABLET PO (08:10)
[2023-06-30] MEDS: FEOSOL 325 MG PO (08:10)
[2023-06-30] MEDS: LASIX 40 MG IV ×2 (08:10→16:08)
[2023-06-30] MEDS: NOVOLOG FLEXPEN-MODERATE RESISTANCE 1 UNITS SC ×2 (08:11→13:02)
--- NOTE | 2023-06-30 08:52 | W.PN.CD ---
Today's Communication / Plan
-
continue IV lasix
cath tomorrow
discussed with patient and
Impression / Plan
-
Acute systolic HF
-severe, requiring close monitoring of labs and tele
-cont lasix 40mg IV bid
Cardiomyopathy: new, unspecified
-echo 06/29/23: EF 30-35%, moderate/severe MR, mild MS, aortic stenosis (mean grad 22, NILA 0.9cm2), mildly reduced RV fx, mild/moderate TR, PASP 60
-plan for coronary angiography tomorrow
-cont ASA 81mg
-currently on lisinopril, will plan on ramping up GDMT post cath
Aortic stenosis
-may be severe low flow, low gradient in setting of depressed EF
-dobutamine challenge during cath
Mitral regurgitation
-may need MELISSA this admission
LBBB: new
Transaminitis, in the setting of acute heart failure, trend
HTN, stable, chronic
HLD, tolerating rosuvastatin
CKD3a, follow with diuresis
Anemia, iron deficiency, chronic, denies acute bleeding
Type II DM, Hgba1c pending, per primary
Prior T10-L1 fusion
Physical Exam
Vital Signs/Labs
Vital Signs
Temp Pulse Resp BP Pulse Ox
98.1 F 89 18 156/83 96
06/30/23 03:39 06/30/23 08:10 06/30/23 03:39 06/30/23 08:10 06/30/23 03:39
06/29/23 06/30/23 07/01/23
06:59 06:59 06:59
Actual Weight 63.985 kg
PT 13.4 Sec (11.4-14.6) 06/29/23 09:07
INR 1.04 06/29/23 09:07
APTT 26.9 Sec (23.4-35.0) 06/29/23 09:07
Magnesium 1.2 mg/dl (1.6-2.3) L 06/29/23 09:39
06/29/23 06/29/23
09: 09:40
Qpn-I-Xlhfqdqxzwm Pept Cancelled 5450
LAB Results
06/29/23 06/29/23
09 09:40
Troponin I Cancelled < 0.012
Physical Exam
Constitutional: Comfortable
EENT: Moist mucous membranes
Cardiovascular: Rhythm & rate is regular, Pedal edema is absent, JVD present and Systolic murmur present
Respiratory: Labored respirations
GI: Soft and Distention absent
Neuro/Psych: AO x 3
Data Reviewed
-
Date of Service: June 30, 2023
EKG: Other (Tele: SR, PVC's)
Echo: Tracing Personally Visualized and interpreted (per note)
Labs: Labs Reviewed by me
[2023-06-30] MEDS: LOW STRENGTH ASPIRIN 81 MG PO (09:03)
[2023-06-30 09:27] LABS: Hematocrit 32.8 % (37.0-47.0); Hemoglobin 10.6 g/dL (12.0-16.0); Mean Corp Hgb Conc. 32.3 g/dL (33.0-37.0); Mean Corpuscular Volume 86.5 fL (81.0-99.0); Mean Platelet Volume 10.5 fL (7.4-10.4); Platelet Count 386 10^3/uL (130-400); Red Blood Cell Count 3.79 10^6/uL (4.20-5.40); Red Cell Dist. Width 16.1 % (11.5-14.5); White Blood Cell Count 6.6 10^3/uL (4.8-10.8)
[2023-06-30 09:56] LABS: ALT (SGPT) 96 U/L (0-35); AST (SGOT) 76 U/L (14-36); Albumin 3.5 g/dl (3.5-5.0); Alkaline Phosphatase 117 U/L (38-126); Blood Urea Nitrogen 32 mg/dl (7-17); Calcium 9.9 mg/dl (8.4-10.2); Carbon Dioxide 30 mmol/L (22-30); Chloride 98 mmol/L (98-107); Estimated Creatinine Clearance 37 ml/min; Glucose 203 mg/dl (70-99); Magnesium 1.2 mg/dl (1.6-2.3); Phosphorus 4.3 mg/dl (2.5-4.5); Potassium 4.1 mmol/L (3.5-5.1); Sodium 136 mmol/L (135-145); Total Bilirubin 0.7 mg/dl (0.2-1.3); Total Protein 5.9 g/dl (6.3-8.2); eGFR 57.31
--- NOTE | 2023-06-30 10:25 | PTCARENOTE ---
Assumed care of patient at AM change of shift. Pt AAOx3, reports mild SOB but says it is much improved since yesterday. SpO2 94% on RA. No other complaints at this time, morning medications administered per JUL.
[2023-06-30 12:00] LABS: Glucose - Point of Care 164 mg/dl (70-99)
[2023-06-30 12:11] LABS: Glycohemoglobin (HgbA1c) 7.4 % (4.0-5.6)
[2023-06-30] MEDS: MAGNESIUM SULFATE 100 IV (13:01)
--- NOTE | 2023-06-30 15:47 | CM ---
MEt patient and in room. Plan for cardiac cath tomorrow. Patient reports she does not use any device to ambulate. She has shower seat and rails. SHe also has stairglide to second floor. There are 2 steps in from garage.
PCP Alexandra Ivory
Pharmacy' [facility] [address] [facility].
PLAN: home no needs.
[2023-06-30 16:56] LABS: Glucose - Point of Care 286 mg/dl (70-99)
[2023-06-30] MEDS: NOVOLOG FLEXPEN-MODERATE RESISTANCE 5 UNITS SC (17:48)
[2023-06-30] MEDS: GLUCOPHAGE XR EXTENDED RELEASE 1500 MG PO (17:49)
[2023-06-30] MEDS: LOVENOX 40 MG SC (17:49)
[2023-06-30] MEDS: EFUDEX-40 1 APPLIC TOPICAL (21:16)
[2023-06-30 21:26] LABS: Glucose - Point of Care 163 mg/dl (70-99)
[2023-07-01] VITALS (8 sets, daily range): BP systolic 90–132; BP diastolic 46–81; BMI 28.2
[2023-07-01 06:04] LABS: Glucose - Point of Care 154 mg/dl (70-99)
[2023-07-01] MEDS: NOVOLOG FLEXPEN-MODERATE RESISTANCE 1 UNITS SC ×2 (06:07→19:31)
--- NOTE | 2023-07-01 07:27 | W.PN.HOSP.TC ---
Today's Communication/Plan
-
Follow up post-cath recommendations
hold metformin
hold lasix
monitor renal function
daily weight I/O
Assessment / Plan
Assessment / Plan
Physical Exam
Away at Cath at time of evaluation. not seen. Record reviewed
IMPRESSION:
78F DM HTN HLD hx Aortic Stenosis GERD p/w progressive dyspnea past few weeks.� Patient was here for fall sprained ankle a week ago when she was first diagnosed with heart failure.� Otherwise, relatively stable at the time, patient was discharge
with Lasix 20 mg daily PO daily as needed for weight gain.� Patient reports only using lasix once over the last week given relatively stable weight.� Shortness of breath however persisted eventually present at rest as well, prompting pt to re-visit
ED.� Place on nasal cannula for symptom mgmt sob.� IV lasix was given with subsequent improvement in symptoms.� BNP elevated 5000s though improved from 6000s prior week.� Denies chest pain palpitations.� Troponin negative.� Chest x-ray suggestive of
heart failure
PLAN:
Left lower extremity venous duplex negative for DVT
#Acute on chronic HFrEF
#History of aortic stenosis
Telemetry admit
lost 13 lb 1st day of diuresis
IV Lasix 40 mg twice daily discontinued d/t overdiuresis leonardo as below and NPO
Daily weight I/O fluid restriction
PT OT eval appreciated HH
ECHO appreciated EF 30-35% Stage II diastolic dysfunction mod severe and MR
Cardio eval appreciated NPO for Cath today 07/01
LEONARDO
Overdiuresis
Cr increase from 1.0 to 1.5
lasix on hold as above
monitor renal function
#Diabetes
Continue home Jardiance
Medium dose sliding scale
monitor and titrate insulin regimen as necessary
A1c 7.4
hold metformin 48h following cath
#Hypertension
Continue home lisinopril with holding parameters
#Hyperlipidemia
Continue home statin
#GERD
Home PPI converted to Protonix twice daily while in hospital
#Iron deficiency anemia
Continue home oral iron supplementation
Left foot pain
Tylenol as needed
PT OT eval as above
#Mild transaminitis
Possibly due to heart failure
Monitor for now
DVT prophylaxis Lovenox
GI prophylaxis Protonix
Meds reconciled and resumed as appropriate
Full code as per patient
Anticipated Discharge: 24 - 48 hours
Subjective/Interval History
-
Date of Service: July 01, 2023
Away at [facility] at time of evaluation. Not seen. Record reviewed
Objective Data
-
Labs:
Laboratory Results
07/01/23
06:21
WBC Pending
Hgb Pending
Hct Pending
Plt Count Pending
Sodium Pending
Potassium Pending
Chloride Pending
Carbon Dioxide Pending
BUN Pending
Creatinine Pending
Glucose Pending
Calcium Pending
Total Bilirubin Pending
AST Pending
ALT Pending
Alkaline Phosphatase Pending
Vital Signs:
Vital Signs
Temp Pulse Resp BP Pulse Ox
97.6 F 67 18 132/70 96
07/01/23 03:24 07/01/23 03:24 07/01/23 03:24 07/01/23 03:24 07/01/23 03:24
I&O
06/30/23 07/01/23 07/02/23
06:59 06:59 06:59
Intake Total 300 / 300 900 / 900
Balance 300 / 300 900 / 900
[2023-07-01 07:48] LABS: Hematocrit 34.6 % (37.0-47.0); Hemoglobin 11.2 g/dL (12.0-16.0); Mean Corp Hgb Conc. 32.4 g/dL (33.0-37.0); Mean Corpuscular Hgb 27.9 pg (27.0-31.0); Mean Corpuscular Volume 86.3 fL (81.0-99.0); Mean Platelet Volume 10.5 fL (7.4-10.4); Platelet Count 415 10^3/uL (130-400); Red Blood Cell Count 4.01 10^6/uL (4.20-5.40); Red Cell Dist. Width 15.8 % (11.5-14.5); White Blood Cell Count 8.1 10^3/uL (4.8-10.8)
--- NOTE | 2023-07-01 07:54 | W.PN.CD ---
Today's Communication / Plan
-
Right/Left cardiac catheterization with dobutamine challenge.
Adjust medications based on those results.
Check magnesium.
Impression / Plan
-
Impression/Plan: 78 y/o female with IDDM, HTN, HLD and aortic stenosis (possibly low flow, low gradient) admitted with heart failure, found to have a new cardiomyopathy.
#HFrEF
-Acute, severe, requiring close monitoring of labs and telemetry.
-Continue furosemide 40mg IV BID.
-Invasively assess filling pressures/CO/CI today.
#Cardiomyopathy
-New diagnosis, unspecified type.
-TTE 06/29/23: EF 30-35%, moderate/severe MR, mild MS, aortic stenosis (mean grad 22, NILA 0.9cm2), mildly reduced RV fx, mild/moderate TR, PASP 60 mmHg.
-Continue ASA, lisinopril.
-Hold beta anuel in light of cath + dobutamine today.
#Aortic stenosis
-May be severe low flow, low gradient in setting of depressed EF.
-Dobutamine challenge during cath.
#Mitral regurgitation
-Possible MELISSA this admission.
#LBBB
-New.
-Workup as above.
#Transaminitis
-Acute.
-In the setting of acute heart failure.
-Trending down.
#HTN
-Chronic, stable.
#HLD
-Chronic, stable.
-Tolerating rosuvastatin.
#CKD3a
-Follow with diuresis.
-Recheck magnesium level.
#Anemia
-Chronic, iron deficiency.
-Continue FeSO4.
#Type II DM, insulin dependent
-Chronic.
-Hgba1c = 7.4%.
#Prior T10-L1 fusion
Subjective/Interval History:
Improving. Now on room air.
Weight is down 6.8 kg.
Some soft BP's (90's/50's) yesterday evening.
Hypomagnesemic to 1.2 yesterday.
DATA:
CXR, 06/29/2023:
IMPRESSION:
Mild cardiomegaly and increased pulmonary vascularity suggesting CHF with likely small bilateral pleural effusions.
TTE, 06/29/2023:
CONCLUSIONS
�Moderately reduced left ventricular systolic function. LV ejection fraction is
�30-35%.
�Stage II diastolic dysfunction suggestive of abnormal relaxation and increased
�filling pressures.
�Moderate to severe mitral regurgitation.
�Mild mitral stenosis. Mean gradient 4 mmHg.
�Aortic stenosis: moderate/severe vs severe with low gradient in setting of
�depressed EF. Peak/mean gradients across the aortic valve are 38/22 mmHg. The
�aortic valve by the Continuity equation is calculated at 0.9 cm sq using an
�LVOT diameter of 2.0 cm. Mild aortic regurgitation.
�Mild/moderate tricuspid regurgitation. Severely elevated PASP. Estimated
�pulmonary artery pressure of 60-65 mmHg assuming a right atrial pressure of 8
�mmHg.
�
�No prior study available for comparison.
Physical Exam
Vital Signs/Labs
Vital Signs
Temp Pulse Resp BP Pulse Ox
36.4 C 67 18 132/70 96
07/01/23 03:24 07/01/23 03:24 07/01/23 03:24 07/01/23 03:24 07/01/23 03:24
06/29/23 06/30/23 07/01/23
11:59 11:59 11:59
Actual Weight 70 kg 63.985 kg 63.248 kg
PT 13.4 Sec (11.4-14.6) 06/29/23 09:07
INR 1.04 06/29/23 09:07
APTT 26.9 Sec (23.4-35.0) 06/29/23 09:07
Magnesium 1.2 mg/dl (1.6-2.3) L 06/30/23 08:01
06/29/23 06/29/23
09:40
Qhs-J-Fcuaydwwyed Pept Cancelled 5450
LAB Results
06/29/23 06/29/23
09:40
Troponin I Cancelled < 0.012
Physical Exam
Constitutional: No acute distress and Comfortable
EENT: Anicteric and Moist mucous membranes
Cardiovascular: Rhythm & rate is regular, Pedal edema is absent, JVD pressure is normal, S1S2 is normal and Murmur/rub/gallop absent
Respiratory: Respiratory effort normal, Lungs clear to auscul., Wheeze Absent, Crackles Absent and Rhonchi Absent
GI: Soft, Distention absent, Flat, Non tender and Normal bowel sounds
Neuro/Psych: AO x 3
Data Reviewed
-
Date of Service: July 01, 2023
Medical Decision Making: Reviewed Test Results, Independent Historian Assessment, Test Interpretation and Review of Case with other Provider
EKG: Tracing Personally Visualized and interpreted and Report Reviewed by me
Echo: Report Reviewed by me
X-Ray/CT/US/MRI/NUC/PET: Image Personally Visualized and interpreted and Report Reviewed by me
Labs: Labs Reviewed by me and Labs Ordered by me
[2023-07-01 08:10] LABS: ALT (SGPT) 78 U/L (0-35); AST (SGOT) 51 U/L (14-36); Alkaline Phosphatase 126 U/L (38-126); Blood Urea Nitrogen 44 mg/dl (7-17); Calcium 9.7 mg/dl (8.4-10.2); Carbon Dioxide 30 mmol/L (22-30); Chloride 99 mmol/L (98-107); Estimated Creatinine Clearance 25 ml/min; Glucose 153 mg/dl (70-99); Magnesium 2.3 mg/dl (1.6-2.3); Phosphorus 5.6 mg/dl (2.5-4.5); Potassium 4.4 mmol/L (3.5-5.1); Sodium 137 mmol/L (135-145); Total Bilirubin 0.6 mg/dl (0.2-1.3); Total Protein 6.4 g/dl (6.3-8.2); eGFR 35.23
[2023-07-01] MEDS: LOW STRENGTH ASPIRIN 81 MG PO (08:38)
[2023-07-01] MEDS: PROTONIX 40 MG PO ×2 (08:38→20:16)
[2023-07-01] MEDS: ZESTRIL 10 MG PO (08:38)
[2023-07-01] MEDS: GLUCOPHAGE XR EXTENDED RELEASE 500 MG PO (08:38)
[2023-07-01] MEDS: FEOSOL 325 MG PO (08:38)
[2023-07-01] MEDS: CRESTOR 5 MG PO (08:38)
[2023-07-01] MEDS: THERAGRAN 1 TABLET PO (08:38)
[2023-07-01] MEDS: VITAMIN D3 (cholecalciferol) 125 MCG PO (08:38)
[2023-07-01] MEDS: JANUVIA 100 MG PO (08:38)
[2023-07-01] MEDS: LASIX IV (08:42)
[2023-07-01 11:24] LABS: Glucose - Point of Care 132 mg/dl (70-99)
[2023-07-01] MEDS: NOVOLOG FLEXPEN-MODERATE RESISTANCE SC ×2 (11:29→15:56)
--- NOTE | 2023-07-01 14:39 | CM ---
manager client support reviewed patient's chart and plan is for patient to return to home with spouse when stable, patient is currently ambulating 60 feet without assisted device.
Plan; Home with spouse when stable.
[2023-07-01 15:47] LABS: Glucose - Point of Care 132 mg/dl (70-99)
[2023-07-01] MEDS: LOVENOX SC (19:11)
[2023-07-01] MEDS: GLUCOPHAGE XR EXTENDED RELEASE PO (19:11)
--- NOTE | 2023-07-01 19:12 | ITS.CL.CATH ---
Stitching Machine Setter - Catheterization
Cardiac Catheterization
Procedure Report:
CARDIAC CATHETERIZATION REPORT
Date of Procedure: 07/01/2023
Referring: Kiko Richardson M.D., Ph.D.
Indication: New cardiomyopathy, possible low-flow, low gradient aortic valve stenosis.
PROCEDURE:
1. Right heart catheterization.
2. Left heart catheterization.
3. Coronary angiography.
4. Aortic valve interrogation.
5. Dobutamine challenge.
ACCESS:
6 [place] right radial artery.
5 [place] right antecubital vein using a modified Seldinger technique under ultrasound guidance.
5 [place] right common femoral vein using a modified Seldinger technique with a micropuncture kit under ultrasound guidance.
CATHETERS:
1. 5 [place] balloon wedge.
2. 5 [place] JL 3.5.
3. 5 [place] JR4.
4. 6 [place] dual-lumen pigtail catheter.
HEMODYNAMIC DATA
Weight (kg): 63.0
AO (s/d/x mmHg): 99/48/67
LV (s/x mmHg): 117/9
PCWP (a/v/x mmHg): 04/04/10
PA (s/d/x mmHg): 33/16/22
RV (s/x mmHg): 33/7
RA (a/v/x mmHg):
SVC SvO2 (%): 57.1
PA SvO2 (%): 54.9
SaO2 (%): 93.0
Hbg (g/dL): 10.5
CO (L/min): 2.62
CI (L/min/m2): 1.66
TPG (mmHg): 12
PVR (Nicole Units): 4.6
SVR (dynes*seconds*cm^-5): 1802
AVO2 Diff (Volume %): 5.44
AV gradient (x, mmHg): 16.92
AV area (cm2): 0.66
Dobutamine 10 mcg/kg/min:
PA SvO2 (%): 62.4
SaO2 (%): 93.4
Hbg (g/dL): 9.4
CO (L/min): 3.71
CI (L/min/m2): 2.35
AV gradient (x, mmHg): 24.27
AV area (cm2): 0.71
Dobutamine 20 mcg/kg/min:
PA SvO2 (%): 68.1
SaO2 (%): 93.4
Hbg (g/dL): 9.8
CO (L/min): 4.72
CI (L/min/m2): 2.90
AV gradient (x, mmHg): 23.25
AV area (cm2): 3.75
LEFT VENTRICULOGRAPHY: Not performed.
CORONARY ANGIOGRAPHY
Dominance: Right.
Left Main: Large size, trifurcating vessel. There is no coronary artery disease.
LAD: Normal size vessel giving rise to 1 significant diagonal. There are minor luminal irregularities.
Ramus: Normal size vessel supplying much of the lateral wall. There is no coronary artery disease.
Circumflex: Large size, nondominant vessel giving rise to 1 significant diagonal. There is a significant angulation of the origin of the circumflex, >90 degrees.
RCA: Normal size, dominant vessel. There is no coronary artery disease.
INTERVENTIONS
Dobutamine challenge.
Narrative:
Given the borderline findings of aortic valve stenosis with low ejection fraction in the absence of coronary artery disease, the decision was made to proceed with dobutamine challenge.
Dobutamine was started at 10 mcg/kg/min. After 5 minutes, pulmonary artery pressure, cardiac output/index and LV/aortic pressure gradients were measured. This showed an increase in cardiac index, a modest increase in trans valvular pressure
gradient and a stable valve area.
Dobutamine was increased to 20 mcg/kg/min. After 5 minutes, measurements were repeated. This demonstrated a substantial increase in cardiac index, a stable to slightly improved trans valvular gradient and a dramatic increase in calculated aortic
valve area. Based on these findings, it was determined that the patient has adequate myocardial reserve and aortic pseudo stenosis.
Dobutamine was turned off. Pullback of the dual-lumen catheter was performed confirming fidelity of measurement.
Closure Device: Vascular band for the right radial artery, manual pressure for the right antecubital vein and the right common femoral vein.
Radiation dose (mGy): 335.19
DAP (cm2.Gy): 32.1874
Fluoroscopy time (minutes): 14.6
Sedation time (minutes): 50
CONCLUSIONS:
1. Right dominant circulation with no occlusive coronary artery disease.
2. Aortic pseudo stenosis with normalization of aortic valve area though persistent aortic valve gradient with infusion of dobutamine 20 mcg/kg/min.
3. Adequate myocardial reserve (significant improvement in cardiac index with inotrope infusion).
4. Normal filling pressures (LVEDP = 9 mmHg, PCWP = 10 mmHg at 63.0 kg), likely inappropriately normal given degree of LV dysfunction.
RECOMMENDATIONS:
1. Expectant management after cardiac catheterization via right radial/right antecubital/right common femoral approach.
2. Limited weight bearing on the right wrist for one week.
3. Guideline directed medical therapy as hemodynamics will tolerate.
4. Allow the patient to be net positive given her inappropriately low LVEDP/PCWP and degree of LV dysfunction.
5. No role for aortic valve intervention at this time.
Copy to: Kiko Richardson M.D., Ph.D., Kendrick Ivory D.O.
Scott Bernard, , FACC, FACP
[2023-07-01 19:30] LABS: Glucose - Point of Care 174 mg/dl (70-99)
[2023-07-01] MEDS: NSS 1000 IV (20:16)
[2023-07-01] MEDS: EFUDEX-40 1 APPLIC TOPICAL (20:17)
[2023-07-01 22:32] LABS: Glucose - Point of Care 245 mg/dl (70-99)
[2023-07-02] VITALS (7 sets, daily range): BP systolic 101–133; BP diastolic 50–74; PULSE 95; BMI 28.5
[2023-07-02] MEDS: NSS 1000 IV (04:39)
[2023-07-02 07:12] LABS: Hematocrit 29.6 % (37.0-47.0); Hemoglobin 9.5 g/dL (12.0-16.0); Mean Corp Hgb Conc. 32.1 g/dL (33.0-37.0); Mean Corpuscular Hgb 27.9 pg (27.0-31.0); Mean Corpuscular Volume 87.1 fL (81.0-99.0); Mean Platelet Volume 10.5 fL (7.4-10.4); Platelet Count 347 10^3/uL (130-400); Red Cell Dist. Width 15.9 % (11.5-14.5); White Blood Cell Count 7.8 10^3/uL (4.8-10.8)
[2023-07-02 07:22] LABS: Glucose - Point of Care 177 mg/dl (70-99)
--- NOTE | 2023-07-02 07:25 | W.PN.HOSP.TC ---
Today's Communication/Plan
-
hold diuresis
monitor renal function
cardiac medication optimization as per cardio
glycemic control
Assessment / Plan
Assessment / Plan
Physical Exam
General: No pallor, cyanosis, or jaundice.
HEENT: Throat clear. PERRLA Normocephalic atraumatic
RESPIRATORY: Lungs clear to auscultation. No crackles wheezes stridor
CVS: S1, S2 RRR.� Systolic murmur 3/6
ABDOMEN: Soft, non-tender. No distension. BS+/normal.
EXTREMITIES: No peripheral cyanosis. Lower ext swelling b/l +1 pitting edema
CONVERTIBLE SOFA BEDSPRING TESTER: AOx3.
IMPRESSION:
78F DM HTN HLD hx Aortic Stenosis GERD p/w progressive dyspnea past few weeks.� Patient was here for fall sprained ankle a week ago when she was first diagnosed with heart failure.� Otherwise, relatively stable at the time, patient was discharge
with Lasix 20 mg daily PO daily as needed for weight gain.� Patient reports only using lasix once over the last week given relatively stable weight.� Shortness of breath however persisted eventually present at rest as well, prompting pt to re-visit
ED.� Place on nasal cannula for symptom mgmt sob.� IV lasix was given with subsequent improvement in symptoms.� BNP elevated 5000s though improved from 6000s prior week.� Denies chest pain palpitations.� Troponin negative.� Chest x-ray suggestive of
heart failure
PLAN:
Left lower extremity venous duplex negative for DVT
#Acute on chronic HFrEF
#History of aortic stenosis
Telemetry admit
lost 13 lb 1st day of diuresis
IV Lasix 40 mg twice daily discontinued d/t overdiuresis leonardo as below and NPO
Daily weight I/O fluid restriction
PT OT eval appreciated home no needs
ECHO appreciated EF 30-35% Stage II diastolic dysfunction mod severe and MR
Cardio eval appreciated Cath performed 07/01
-Rt dominant circulation no occlusive CAD
-Aortic Pseudo stenosis
-Adequate Myocardial [place]
-Inappropriately normal filling pressures given degree LV dysfunction
-pt recommended to be allowed net positive, no role for aortic valve intervention at this time
lisinopril on hold to resume at reduced dose 5 mg Monday 07/03
Metoprolol XL 25 mg daily started
eventual prn wt based lasix dosing
SGLT2i when LEONARDO resolves
outpt repeat ECHO 90 days
LEONARDO
Overdiuresis
Cr increase from 1.0 to 1.5, improving
lasix on hold as above
monitor renal function
#Diabetes
Continue home Jardiance
Medium dose sliding scale
monitor and titrate insulin regimen as necessary
A1c 7.4
hold metformin 48h following cath
#Hypertension
Continue home lisinopril with holding parameters
#Hyperlipidemia
Continue home statin
#GERD
Home PPI converted to Protonix twice daily while in hospital
#Iron deficiency anemia
Continue home oral iron supplementation
Left foot pain
06/22 Foot XR No acute fracture or dislocation. Generalized soft tissue swelling. Degenerative changes.
Tylenol as needed
#Mild transaminitis
Possibly due to heart failure
resolving
DVT prophylaxis Lovenox
GI prophylaxis Protonix
Full code
PT appreciated no skilled needs. Home when stable for discharge.
I spent a total of 57 minutes with the patient or on the floor. More than 50% of this time involved counseling and coordination of care.
Anticipated Discharge: 24 - 48 hours
Subjective/Interval History
-
Date of Service: July 02, 2023
Sitting up comfortably in chair. Denies new acute issues at this time. Reports overall feeling well though fatigue
Objective Data
-
Labs:
Laboratory Results
07/02/23
05:40
WBC 7.8
Hgb 9.5 L
Hct 29.6 L
Plt Count 347
Sodium Pending
Potassium Pending
Chloride Pending
Carbon Dioxide Pending
BUN Pending
Creatinine Pending
Glucose Pending
Calcium Pending
Total Bilirubin Pending
AST Pending
ALT Pending
Alkaline Phosphatase Pending
Vital Signs:
Vital Signs
Temp Pulse Resp BP Pulse Ox
97.5 F 73 18 110/68 98
07/02/23 03:00 07/02/23 03:00 07/02/23 03:00 07/02/23 03:00 07/02/23 03:00
I&O
07/01/23 07/02/23 07/03/23
06:59 06:59 06:59
Intake Total 900 / 900 1240 / 1240
Output Total 500 / 500
Balance 900 / 900 740 / 740
[2023-07-02 07:42] LABS: ALT (SGPT) 56 U/L (0-35); AST (SGOT) 35 U/L (14-36); Albumin 3.4 g/dl (3.5-5.0); Alkaline Phosphatase 115 U/L (38-126); Blood Urea Nitrogen 47 mg/dl (7-17); Calcium 8.5 mg/dl (8.4-10.2); Carbon Dioxide 25 mmol/L (22-30); Chloride 105 mmol/L (98-107); Estimated Creatinine Clearance 29 ml/min; Glucose 127 mg/dl (70-99); Magnesium 1.9 mg/dl (1.6-2.3); Phosphorus 4.7 mg/dl (2.5-4.5); Potassium 3.9 mmol/L (3.5-5.1); Sodium 137 mmol/L (135-145); Total Bilirubin 0.5 mg/dl (0.2-1.3); Total Protein 5.6 g/dl (6.3-8.2); eGFR 41.83
--- NOTE | 2023-07-02 07:42 | W.PN.CD ---
Today's Communication / Plan
-
Hold lisinopril this morning, then decrease tomorrow's dose to 5 mg.
Start metoprolol 25 mg daily.
Monitor renal function and continue to allow the patient to be net positive.
Weight based furosemide dosing (40 mg PO PRN weight gain of 1-3 lbs/24 hours, 3-5 lbs/week).
When renal function back to baseline, start SGLT2i (dapagliflozin or empagliflozin).
Repeat echocardiogram in 90 days.
LBBB makes the patient a candidate for POWER TRANSFORMER INSPECTOR-D if LVEF remains < 35% on repeat echo on GDMT.
Impression / Plan
-
Impression/Plan: 78 y/o female with IDDM, HTN, HLD and aortic stenosis (possibly low flow, low gradient) admitted with heart failure, found to have a new non-ischemic cardiomyopathy and aortic valve pseudostenosis.
#HFrEF
-Acute, severe, requiring close monitoring of labs and telemetry.
-Furosemide on hold for inappropriately normal filling pressures.
-Transition to weight based furosemide dosing (40 mg PO PRN weight gain of 1-3 lbs/24 hours, 3-5 lbs/week).
-GDMT.
#Non-ischemic cardiomyopathy
-New diagnosis.
-TTE 06/29/23: EF 30-35%, moderate/severe MR, mild MS, aortic stenosis (mean grad 22, NILA 0.9cm2), mildly reduced RV fx, mild/moderate TR, PASP 60 mmHg.
-Hold lisinopril due to renal dysfunction, plan to decrease to 5 mg daily. BP may not tolerate sacubitril/valsartan.
-Start metoprolol succinate 25 mg daily.
-When renal function will tolerate, start dapagliflozin or empagliflozin 10 mg daily.
-Case management consult for cost.
#Aortic pseudo-stenosis
-Dobutamine challenge during catheterization showed minimal rise in gradient with substantial rise in CO/CI.
-This confirms that the valve area increases with increasing CO and that the patient has myocardial reserve.
#Mitral regurgitation
-New diagosis.
-Appears compensated.
-The patient may require a MELISSA, though it can likely be deferred to the outpatient setting.
#LBBB
-New.
-If NICMO/LVEF has not improved after GDMT, this may provide justification for POWER TRANSFORMER INSPECTOR-D.
#Transaminitis
-Acute.
-In the setting of acute heart failure.
-Trending down.
#HTN
-Chronic, stable.
-BP is currently borderline.
#HLD
-Chronic, stable.
-Tolerating rosuvastatin.
#Acute on CKD3a
-Baseline Cr appears to be 1.0-1.2.
-Approaching baseline.
-Recheck magnesium level.
#Anemia
-Chronic, iron deficiency.
-Continue FeSO4.
#Type II DM, insulin dependent
-Chronic.
-Hgba1c = 7.4%.
-Patient would benefit from addition of SGLT2i.
#Prior T10-L1 fusion
Subjective/Interval History:
Cardiac catheterization showed no obstructive CAD.
Dobutamine challenge confirmed myocardial reserve and demonstrated aortic valve pseudostenosis.
Filling pressures were inappropriately normal for degree of LV dysfunction.
NSS bolus given post cath.
DATA:
Cardiac Catheterization, 07/01/2023:
CONCLUSIONS:
1.� Right dominant circulation with no occlusive coronary artery disease.
2.� Aortic pseudo stenosis with normalization of aortic valve area though persistent aortic valve gradient with infusion of dobutamine 20 mcg/kg/min.
3.� Adequate myocardial reserve (significant improvement in cardiac index with inotrope infusion).
4.� Normal filling pressures (LVEDP = 9 mmHg, PCWP = 10 mmHg at 63.0 kg), likely inappropriately normal given degree of LV dysfunction.
CXR, 06/29/2023:
IMPRESSION:
Mild cardiomegaly and increased pulmonary vascularity suggesting CHF with likely small bilateral pleural effusions.
TTE, 06/29/2023:
CONCLUSIONS
�Moderately reduced left ventricular systolic function. LV ejection fraction is
�30-35%.
�Stage II diastolic dysfunction suggestive of abnormal relaxation and increased
�filling pressures.
�Moderate to severe mitral regurgitation.
�Mild mitral stenosis. Mean gradient 4 mmHg.
�Aortic stenosis: moderate/severe vs severe with low gradient in setting of
�depressed EF. Peak/mean gradients across the aortic valve are 38/22 mmHg. The
�aortic valve by the Continuity equation is calculated at 0.9 cm sq using an
�LVOT diameter of 2.0 cm. Mild aortic regurgitation.
�Mild/moderate tricuspid regurgitation. Severely elevated PASP. Estimated
�pulmonary artery pressure of 60-65 mmHg assuming a right atrial pressure of 8
�mmHg.
�
�No prior study available for comparison.
Physical Exam
Vital Signs/Labs
Vital Signs
Temp Pulse Resp BP Pulse Ox
36.4 C 73 18 110/68 98
07/02/23 03:00 07/02/23 03:00 07/02/23 03:00 07/02/23 03:00 07/02/23 03:00
06/30/23 07/01/23 07/02/23
11:59 11:59 11:59
Actual Weight 63.985 kg 63.248 kg 64.002 kg
07/02/23 05:40
PT 13.4 Sec (11.4-14.6) 06/29/23 09:07
INR 1.04 06/29/23 09:07
APTT 26.9 Sec (23.4-35.0) 06/29/23 09:07
Magnesium 2.3 mg/dl (1.6-2.3) 07/01/23 06:21
06/29/23 06/29/23
09:07 09:40
Zgr-A-Oowcdrgzlsv Pept Cancelled 5450
LAB Results
06/29/23 06/29/23
09:07 09:40
Troponin I Cancelled < 0.012
Physical Exam
Constitutional: No acute distress and Comfortable
EENT: Anicteric and Moist mucous membranes
Cardiovascular: Rhythm & rate is regular, Pedal edema is absent, JVD pressure is normal, S1S2 is normal and Murmur/rub/gallop absent
Respiratory: Respiratory effort normal, Lungs clear to auscul., Wheeze Absent, Crackles Absent and Rhonchi Absent
GI: Soft, Distention absent, Flat, Non tender and Normal bowel sounds
Neuro/Psych: AO x 3
Other: Cath Site (Right radial/antecubital/femoral access sites are C/D/I.)
Data Reviewed
-
Date of Service: July 02, 2023
Medical Decision Making: Reviewed Test Results, Independent Historian Assessment and Test Interpretation
EKG: Tracing Personally Visualized and interpreted and Report Reviewed by me
Echo: Tracing Personally Visualized and interpreted and Report Reviewed by me
X-Ray/CT/US/MRI/NUC/PET: Image Personally Visualized and interpreted and Report Reviewed by me
Medical Tests (PFT, Pathology etc): Image Personally Visualized and interpreted, Report Reviewed by me, Discussed with Patient and Discussed with Family
Labs: Labs Reviewed by me
Old Records: Reviewed
[2023-07-02] MEDS: NOVOLOG FLEXPEN-MODERATE RESISTANCE 1 UNITS SC ×2 (09:24→18:54)
[2023-07-02] MEDS: PROTONIX 40 MG PO ×2 (09:25→21:08)
[2023-07-02] MEDS: THERAGRAN 1 TABLET PO (09:25)
[2023-07-02] MEDS: FEOSOL 325 MG PO (09:25)
[2023-07-02] MEDS: VITAMIN D3 (cholecalciferol) 125 MCG PO (09:25)
[2023-07-02] MEDS: LOW STRENGTH ASPIRIN 81 MG PO (09:25)
[2023-07-02] MEDS: JANUVIA 100 MG PO (09:25)
[2023-07-02 12:23] LABS: Glucose - Point of Care 250 mg/dl (70-99)
[2023-07-02] MEDS: NOVOLOG FLEXPEN-MODERATE RESISTANCE 5 UNITS SC (12:24)
[2023-07-02] MEDS: TOPROL XL 25 MG PO (12:24)
[2023-07-02 18:14] LABS: Glucose - Point of Care 198 mg/dl (70-99)
[2023-07-02] MEDS: LOVENOX 40 MG SC (18:54)
[2023-07-02] MEDS: EFUDEX-40 1 APPLIC TOPICAL (21:08)
[2023-07-02 21:41] LABS: Glucose - Point of Care 242 mg/dl (70-99)
[2023-07-03 03:29] VITALS: BP 129/79
[2023-07-03 05:29] VITALS: BP 129/79
[2023-07-03 05:31] VITALS: BMI 28.4
--- NOTE | 2023-07-03 07:24 | W.PN.CD ---
Addendum entered and electronically signed by Scott Bernard DO 07/03/23 12:22:
Dapagliflozin not covered.
Start empagliflozin 10 mg daily.
Original Note:
Today's Communication / Plan
-
Increase metoprolol to 50 mg daily.
Restart lisinopril, start dapagliflozin 10 mg daily when renal function has demonstrated stability.
Weight based diuretics on discharge.
BMP in one week.
Stable for outpatient follow up from a cardiovascular perspective.
Impression / Plan
-
Impression/Plan: 78 y/o female with IDDM, HTN, HLD and aortic stenosis (possibly low flow, low gradient) admitted with heart failure, found to have a new non-ischemic cardiomyopathy and aortic valve pseudostenosis.
#HFrEF
-Acute, severe, requiring close monitoring of labs and telemetry.
-Furosemide on hold for inappropriately normal filling pressures.
-Transition to weight based furosemide dosing (40 mg PO PRN weight gain of 1-3 lbs/24 hours, 3-5 lbs/week).
-GDMT.
#Non-ischemic cardiomyopathy
-New diagnosis.
-TTE 06/29/23: EF 30-35%, moderate/severe MR, mild MS, aortic stenosis (mean grad 22, NLIA 0.9cm2), mildly reduced RV fx, mild/moderate TR, PASP 60 mmHg.
-Hold lisinopril due to renal dysfunction, plan to decrease to 5 mg daily. BP may not tolerate sacubitril/valsartan.
-Increase metoprolol to 50 mg daily.
-Restart lisinopril and start dapagliflozin 10 mg daily when renal function has demonstrated stability (possibly today).
#Aortic pseudo-stenosis
-Dobutamine challenge during catheterization showed minimal rise in gradient with substantial rise in CO/CI.
-This confirms that the valve area increases with increasing CO and that the patient has myocardial reserve.
#Mitral regurgitation
-New diagosis.
-Appears compensated.
-The patient may require a MELISSA, though it can likely be deferred to the outpatient setting.
#LBBB
-New.
-If NICMO/LVEF has not improved after GDMT, this may provide justification for PAYROLL AND BENEFITS COORDINATOR-D.
#Transaminitis
-Acute.
-In the setting of acute heart failure.
-Trending down.
#HTN
-Chronic, stable.
-Tolerating metoprolol.
#HLD
-Chronic, stable.
-Tolerating rosuvastatin.
#Acute on CKD3a
-Baseline Cr appears to be 1.0-1.2.
-[ ]
#Anemia
-Chronic, iron deficiency.
-Continue FeSO4.
#Type II DM, insulin dependent
-Chronic.
-Hgba1c = 7.4%.
-Patient would benefit from addition of SGLT2i.
#Prior T10-L1 fusion
Subjective/Interval History:
BP's improving.
Weight stable (down slightly).
Tolerating metoprolol, though HR still in the 90's.
Labs pending.
DATA:
Cardiac Catheterization, 07/01/2023:
CONCLUSIONS:
1.� Right dominant circulation with no occlusive coronary artery disease.
2.� Aortic pseudo stenosis with normalization of aortic valve area though persistent aortic valve gradient with infusion of dobutamine 20 mcg/kg/min.
3.� Adequate myocardial reserve (significant improvement in cardiac index with inotrope infusion).
4.� Normal filling pressures (LVEDP = 9 mmHg, PCWP = 10 mmHg at 63.0 kg), likely inappropriately normal given degree of LV dysfunction.
CXR, 06/29/2023:
IMPRESSION:
Mild cardiomegaly and increased pulmonary vascularity suggesting CHF with likely small bilateral pleural effusions.
TTE, 06/29/2023:
CONCLUSIONS
�Moderately reduced left ventricular systolic function. LV ejection fraction is
�30-35%.
�Stage II diastolic dysfunction suggestive of abnormal relaxation and increased
�filling pressures.
�Moderate to severe mitral regurgitation.
�Mild mitral stenosis. Mean gradient 4 mmHg.
�Aortic stenosis: moderate/severe vs severe with low gradient in setting of
�depressed EF. Peak/mean gradients across the aortic valve are 38/22 mmHg. The
�aortic valve by the Continuity equation is calculated at 0.9 cm sq using an
�LVOT diameter of 2.0 cm. Mild aortic regurgitation.
�Mild/moderate tricuspid regurgitation. Severely elevated PASP. Estimated
�pulmonary artery pressure of 60-65 mmHg assuming a right atrial pressure of 8
�mmHg.
�
�No prior study available for comparison.
Physical Exam
Vital Signs/Labs
Vital Signs
Temp Pulse Resp BP Pulse Ox
36.8 C 94 16 129/79 97
07/03/23 03:29 07/03/23 03:29 07/03/23 03:29 07/03/23 03:29 07/03/23 03:29
07/01/23 07/02/23 07/03/23
11:59 11:59 11:59
Actual Weight 63.248 kg 64.002 kg 63.701 kg
PT 13.4 Sec (11.4-14.6) 06/29/23 09:07
INR 1.04 06/29/23 09:07
APTT 26.9 Sec (23.4-35.0) 06/29/23 09:07
Magnesium 1.9 mg/dl (1.6-2.3) 07/02/23 05:40
06/29/23 06/29/23
09:07 09:40
Zip-J-Osbamhxigsz Pept Cancelled [id number]
Physical Exam
Constitutional: No acute distress and Comfortable
EENT: Anicteric and Moist mucous membranes
Cardiovascular: Rhythm & rate is regular, Pedal edema is absent, JVD pressure is normal, S1S2 is normal and Murmur/rub/gallop absent
Respiratory: Respiratory effort normal, Lungs clear to auscul., Wheeze Absent, Crackles Absent and Rhonchi Absent
GI: Soft, Distention absent, Flat, Non tender and Normal bowel sounds
Neuro/Psych: AO x 3
Data Reviewed
-
Date of Service: July 03, 2023
Medical Decision Making: Reviewed Test Results, Independent Historian Assessment and Test Interpretation
EKG: Tracing Personally Visualized and interpreted and Report Reviewed by me
Echo: Tracing Personally Visualized and interpreted and Report Reviewed by me
X-Ray/CT/US/MRI/NUC/PET: Image Personally Visualized and interpreted and Report Reviewed by me
Medical Tests (PFT, Pathology etc): Image Personally Visualized and interpreted, Report Reviewed by me, Discussed with Patient and Discussed with Family
Labs: Labs Reviewed by me
[2023-07-03 08:07] VITALS: BP 135/80
[2023-07-03 08:13] LABS: Glucose - Point of Care 208 mg/dl (70-99)
[2023-07-03 09:16] LABS: Hematocrit 31.5 % (37.0-47.0); Hemoglobin 10.1 g/dL (12.0-16.0); Mean Corp Hgb Conc. 32.1 g/dL (33.0-37.0); Mean Corpuscular Hgb 27.9 pg (27.0-31.0); Mean Platelet Volume 10.7 fL (7.4-10.4); Platelet Count 331 10^3/uL (130-400); Red Blood Cell Count 3.62 10^6/uL (4.20-5.40); Red Cell Dist. Width 15.9 % (11.5-14.5)
[2023-07-03 09:34] LABS: ALT (SGPT) 46 U/L (0-35); AST (SGOT) 30 U/L (14-36); Albumin 3.8 g/dl (3.5-5.0); Alkaline Phosphatase 119 U/L (38-126); Blood Urea Nitrogen 29 mg/dl (7-17); Calcium 9.4 mg/dl (8.4-10.2); Carbon Dioxide 23 mmol/L (22-30); Chloride 107 mmol/L (98-107); Estimated Creatinine Clearance 37 ml/min; Glucose 207 mg/dl (70-99); Magnesium 1.7 mg/dl (1.6-2.3); Phosphorus 3.4 mg/dl (2.5-4.5); Potassium 4.1 mmol/L (3.5-5.1); Sodium 139 mmol/L (135-145); Total Bilirubin 0.6 mg/dl (0.2-1.3); Total Protein 6.2 g/dl (6.3-8.2); eGFR 57.31
[2023-07-03] MEDS: VITAMIN D3 (cholecalciferol) 125 MCG PO (09:43)
[2023-07-03] MEDS: NOVOLOG FLEXPEN-MODERATE RESISTANCE 3 UNITS SC ×2 (09:43→12:58)
[2023-07-03] MEDS: PROTONIX 40 MG PO (09:43)
[2023-07-03] MEDS: TOPROL XL 25 MG PO (09:43)
[2023-07-03] MEDS: JANUVIA 100 MG PO (09:44)
[2023-07-03] MEDS: THERAGRAN 1 TABLET PO (09:44)
[2023-07-03] MEDS: LOW STRENGTH ASPIRIN 81 MG PO (09:44)
[2023-07-03] MEDS: FEOSOL 325 MG PO (09:44)
[2023-07-03] MEDS: CRESTOR 5 MG PO (09:46)
--- NOTE | 2023-07-03 11:26 | CM ---
Addendum entered by Caterina Castellon 07/03/23 13:40:
special education case manager received consult for visiting nurses however when special education case manager discussed visiting nurses with patient and spouse, patient declined visiting nurses.
Plan; Home with spouse, patient has declined visiting nurses.
Original Note:
publications manager reviewed patient's chart and did locate cost of medications and sent results to cardiology. Home with spouse when stable.
Plan; Home with spouse when stable.
[2023-07-03 11:43] LABS: Glucose - Point of Care 241 mg/dl (70-99)
--- NOTE | 2023-07-03 12:21 | W.HF.CON ---
Heart Failure
- LV Function
Left ventricular function study result: LV Ejection fraction </= 35%
Ejection Fraction Percentage: 30-35
- ARNI
Patient already on ARNI: No
Heart Failure ARNI Contraindication: Acute Renal Failure, Hypotension
- ACEI/ARB
Patient already on ACEI/ARB: Yes
- Beta Leonid
Patient already on Evidence Based Beta Leonid: Yes
- Mineralocorticord Receptor Antagonist
Patient already on MRA: No
Heart Failure MRA Contraindication: Acute Renal Insufficiency, Hypotension
- SGLT-2 Inhibitor
Patient already on SGLT-2 Inhibitor: Yes
- NYHA CHF Classification
NYHA CHF Classification Level: Class III - Symptoms w/ min exertion, interferes w/ nml daily activity
- ACC/AHA Stage
ACC/AHA Stage: Stage C: Symptomatic Heart Failure
[2023-07-03 13:04] VITALS: BP 134/63
--- NOTE | 2023-07-03 13:04 | W.PN.HOSP.TC ---
Today's Communication/Plan
-
Discharge
Assessment / Plan
Assessment / Plan
CVS: S1-S2 normal
Chest: CTA B/L
Abdomen: Soft, NT / Bowel sounds present
Extremities: No edema, normal pulses
BELT SANDER: Non focal exam
IMPRESSION:
78F DM HTN HLD hx Aortic Stenosis GERD p/w progressive dyspnea past few weeks.� Patient was here for fall sprained ankle a week ago when she was first diagnosed with heart failure.� Otherwise, relatively stable at the time, patient was discharge
with Lasix 20 mg daily PO daily as needed for weight gain.� Patient reports only using lasix once over the last week given relatively stable weight.� Shortness of breath however persisted eventually present at rest as well, prompting pt to re-visit
ED.� Place on nasal cannula for symptom mgmt sob.� IV lasix was given with subsequent improvement in symptoms.� BNP elevated 5000s though improved from 6000s prior week.� Denies chest pain palpitations.� Troponin negative.� Chest x-ray suggestive of
heart failure
PLAN:
Left lower extremity venous duplex negative for DVT
#Acute on chronic HFrEF
#History of aortic stenosis
7 kg weight loss if accurate
Daily weight I/O fluid restriction
PT OT eval appreciated home no needs
ECHO appreciated EF 30-35% Stage II diastolic dysfunction mod severe and MR
Cardio eval appreciated Cath performed 07/01
-Rt dominant circulation no occlusive CAD
-Aortic Pseudo stenosis
-Adequate Myocardial [place]
-Inappropriately normal filling pressures given degree LV dysfunction
-pt recommended to be allowed net positive, no role for aortic valve intervention at this time
lisinopril
Metoprolol XL 25 mg daily started
Lasix
Jardiance started
outpt repeat ECHO 90 days
#LEONARDO
Overdiuresis
Cr increase from 1.0 to 1.5, improving 1.0 today
Lasix on hold as above
monitor renal function
#Diabetes
Continue home Jardiance
Medium dose sliding scale
monitor and titrate insulin regimen as necessary
A1c 7.4
Restart metformin
#Hypertension
Continue home lisinopril
#Hyperlipidemia
Continue home statin
#GERD
Home PPI converted to Protonix twice daily while in hospital
#Iron deficiency anemia
Continue home oral iron supplementation
#Left foot pain
06/22 Foot XR No acute fracture or dislocation. Generalized soft tissue swelling. Degenerative changes.
Tylenol as needed
#Mild transaminitis
Possibly due to heart failure
resolving
#DVT prophylaxis Lovenox
#Full code
PT appreciated no skilled needs. Home when stable for discharge.
D/W at bed side
D/W Cardiology
D/W Nursing
Discharge time 34 min
Anticipated Discharge: Today
Subjective/Interval History
-
Date of Service: July 03, 2023
Objective Data
-
Labs:
Laboratory Results
07/03/23
08:04
WBC 8.0
Hgb 10.1 L
Hct 31.5 L
Plt Count 331
Sodium 139
Potassium 4.1
Chloride 107
Carbon Dioxide 23
BUN 29 H
Creatinine 1.0
Glucose 207 H
Calcium 9.4
Total Bilirubin 0.6
AST 30
ALT 46 H
Alkaline Phosphatase 119
Vital Signs:
Vital Signs
Temp Pulse Resp BP Pulse Ox
97.7 F 93 18 135/80 98
07/03/23 08:07 07/03/23 08:07 07/03/23 08:07 07/03/23 08:07 07/03/23 08:07
I&O
07/02/23 07/03/23 07/04/23
06:59 06:59 06:59
Intake Total 1240 / 1240 960 / 960
Output Total 500 / 500
Balance 740 / 740 960 / 960
--- NOTE | 2023-07-03 13:31 | W.DS.TRANS ---
Addendum entered and electronically signed by Samaria Roberto MD 07/03/23 17:03:
Dictation- [id number]
Original Note:
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
-
Discharge Instructions:
Discharge Diagnosis/Procedures CHF, aortic stenosis, acute kidney injury,
diabetes, hypertension, high cholesterol, GERD,
iron deficiency anemia,
Diet Restrict fluids to 48 oz,2 Gram Sodium
Activity As tolerated
Driving Restrictions As prior to admission
Blood Work BMP 1 week
Others Tests ECHO 3 months
Other Services VN
Specialty Instructions Weigh Daily
Instructions: *CBC Heart Failure Instructions
Stand-Alone Forms:
Changes to Home Medications: Yes
Discharge Medications:
DC Medications w/original date entered in [employer]
rosuvastatin 5 mg tablet 5 mg PO MOWEFR@0800 High cholesterol 07/05/20
sitagliptin phosphate 100 mg tablet (Januvia) 100 mg PO DAILY Diabetes 07/05/20
biotin 5 mg capsule 5 mg PO DAILY Supplement 09/12/22
metformin 500 mg tablet,extended release 24 hr 1,500 mg PO QPM Diabetes 09/12/22
metformin 500 mg tablet,extended release 24 hr 500 mg PO DAILY Diabetes 09/12/22
ferrous sulfate 325 mg (65 mg iron) tablet (Feosol) 325 mg PO DAILY Hormonal agent 09/13/22
aspirin 81 mg tablet,delayed release 81 mg PO MOWEFR@0800 Blood Clot Prevention/Tx 06/29/23
cholecalciferol (vitamin D3) 125 mcg (5,000 unit) tablet 125 mcg PO DAILY Supplement 06/29/23
fluorouracil 5 % topical cream 1 applic topical HS apply to face 06/29/23
insulin glargine 100 unit/mL (3 mL) subcutaneous pen (Lantus Solostar U-100 Insulin) 12 - 14 unit SC .SEE BELOW Diabetes 06/29/23
prjbbkhatxta-wzpynxmv-yparlf tablet 1 tab PO DAILY Supplement 06/29/23
omega 4-xmg-vbz-fish oil 1,000 mg (120 mg-180 mg) capsule (Fish Oil) 1 cap PO DAILY Supplement 06/29/23
omeprazole 20 mg-sodium bicarbonate 1.1 gram capsule (Zegerid OTC) 1 cap PO BID Gastrointestinal Issue 06/29/23
empagliflozin 10 mg tablet (Jardiance) 10 mg PO DAILY Heart disease/condition #30 tabs 07/03/23
furosemide 20 mg tablet (Lasix) 40 mg PO Q OTHER DAY PRN Weight Gain #30 tabs 07/03/23
lisinopril 5 mg tablet 5 mg PO DAILY Heart disease/condition #30 tabs 07/03/23
metoprolol succinate 50 mg tablet,extended release 24 hr 50 mg PO DAILY Heart disease/condition #30 tabs 07/03/23
Home Medication Changes
new
metoprolol succinate 50 mg tablet,extended release 24 hr 50 mg PO DAILY Heart disease/condition #30 tabs 07/03/23
empagliflozin 10 mg tablet (Jardiance) 10 mg PO DAILY Heart disease/condition #30 tabs 07/03/23
Dose change
furosemide 20 mg tablet (Lasix) 40 mg PO Q OTHER DAY PRN Weight Gain #30 tabs 07/03/23
lisinopril 5 mg tablet 5 mg PO DAILY Heart disease/condition #30 tabs 07/03/23
Pending Results: No
--- NOTE | 2023-07-03 14:00 | PTCARENOTE ---
Pt DC'd to home. Pt given DC instructions and verbalized understanding.
[2023-07-03] MEDS: MAGNESIUM OXIDE 500 MG PO (14:08)
--- NOTE | 2023-07-27 13:00 | HFEDUCATE ---
Pt had F/U on 07/10/23 at 1:15PM with Dr. Kendrick Ivory DO.
== END 2023-07-03 15:00 | disposition home or self-care (01) | DRG 286 ==
LOC: 4 WEST ACU 14:14
PROVIDERS: Internal Medicine Cardiovascular Disease; Physician Assistant; ADMITTING PHYSICIAN Internal Medicine; ATTENDING PHYSICIAN Hospitalist; CONSULT PHYSICIAN Internal Medicine; EMERGENCY PHYSICIAN Emergency Medicine; FAMILY PHYSICIAN Family Medicine
PROC: B2111ZZ Fluoroscopy of Multiple Coronary Arteries using Low Osmolar Contrast (ICD-10-PCS; 2023-07-01)
PROC: 4A023N8 Measurement of Cardiac Sampling and Pressure, Bilateral, Percutaneous Approach (ICD-10-PCS; 2023-07-01)
DX: I11.0 Hypertensive heart disease with heart failure (principal); I50.23 Acute on chronic systolic (congestive) heart failure; N17.9 Acute kidney failure, unspecified; E11.9 Type 2 diabetes mellitus without complications; E78.00 Pure hypercholesterolemia, unspecified; K21.9 Gastro-esophageal reflux disease without esophagitis; D50.8 Other iron deficiency anemias; I42.8 Other cardiomyopathies; I08.3 Combined rheumatic disorders of mitral, aortic and tricuspid valves; Z79.4 Long term (current) use of insulin
CPT/HCPCS: 71046; 80053; 82947; 82962; 83036; 83735; 83880; 84100; 84484; 85025; 85027; 85610; 85730; 93005; 93306; 93460; 93463; 93971; 96374; 97162; 97166; 97530; 99285; C1769; C1894; Q9967

== ENCOUNTER → 2023-09-10 12:40 | Outpatient (REF) | payer MEDICARE, BC, SELFPAY | LOC: DHCBC HW 12:40 | PROVIDERS: ATTENDING PHYSICIAN Nurse Practitioner; FAMILY PHYSICIAN Family Medicine | DX: I42.8 Other cardiomyopathies (principal) | CPT/HCPCS: 93306 ==

== ENCOUNTER → 2023-12-18 13:01 | Outpatient (REF) | payer MEDICARE, BC, SELFPAY | LOC: RCS 13:01 | PROVIDERS: ATTENDING PHYSICIAN Internal Medicine; FAMILY PHYSICIAN Family Medicine | DX: I50.20 Unspecified systolic (congestive) heart failure (principal); I42.8 Other cardiomyopathies; I34.0 Nonrheumatic mitral (valve) insufficiency; I35.0 Nonrheumatic aortic (valve) stenosis | CPT/HCPCS: 93308; 93321; 93325 ==

== ENCOUNTER 2024-04-06 06:34 | Day surgery (SDC) | payer MEDICARE, BC, SELFPAY ==
[2024-04-06 08:18] LABS: Glucose - Point of Care 123 mg/dl (70-99)
[2024-04-06 08:20] VITALS: BP 148/59
[2024-04-06 08:21] VITALS: BMI 29.9
[2024-04-06 10:07] VITALS: BP 98/76
[2024-04-06 10:09] VITALS: BP 106/62
[2024-04-06 10:15] VITALS: BP 100/62
[2024-04-06 10:18] LABS: Glucose - Point of Care 106 mg/dl (70-99)
[2024-04-06 10:30] VITALS: BP 122/56
== END 2024-04-06 10:45 | disposition home or self-care (01) ==
LOC: SDS 06:34
PROVIDERS: ATTENDING PHYSICIAN Internal Medicine Gastroenterology
DX: D12.0 Benign neoplasm of cecum (principal); D12.3 Benign neoplasm of transverse colon; D12.4 Benign neoplasm of descending colon; D17.5 Benign lipomatous neoplasm of intra-abdominal organs; K57.30 Diverticulosis of large intestine without perforation or abscess without bleeding; D12.8 Benign neoplasm of rectum; K62.89 Other specified diseases of anus and rectum; K64.8 Other hemorrhoids; R19.7 Diarrhea, unspecified; Z83.719 Family history of colon polyps, unspecified
CPT/HCPCS: 45385; 45380; 45381; 88305; 82962

== ENCOUNTER 2024-04-19 09:52 | Inpatient (IN) | payer MEDICARE, BC, SELFPAY ==
[2024-04-19] VITALS (117 sets, daily range): BP systolic 50–145; BP diastolic 25–119; BMI 31.1; BMI 21.7
[2024-04-19 05:57] LABS: % Basophils 0.8 % (0-2); % Eosinophils 2.3 % (0-6); % Immature Granulocytes 0.5 % (0-0.5); % Lymphocytes 13.8 % (20.5-51.1); % Neutrophils 76.6 % (42.2-75.2); Absolute Basophils 0.1 10^3/uL (0-0.2); Absolute Eosinophils 0.3 10^3/uL (0-0.7); Absolute Immature Granulocytes 0.1 10^3/uL (0-0.05); Absolute Lymphocytes 1.5 10^3/uL (1.2-3.4); Absolute Monocytes 0.7 10^3/uL (0.1-0.6); Absolute Neutrophils 8.3 10^3/uL (1.4-6.5); Hematocrit 32.5 % (37.0-47.0); Hemoglobin 10.1 g/dL (12.0-16.0); Mean Corp Hgb Conc. 31.1 g/dL (33.0-37.0); Mean Corpuscular Hgb 28.9 pg (27.0-31.0); Mean Corpuscular Volume 92.9 fL (81.0-99.0); Nucleated Red Blood Cells % 0 %; Platelet Count 374 10^3/uL (130-400); White Blood Cell Count 10.8 10^3/uL (4.8-10.8)
[2024-04-19 06:08] LABS: ALT (SGPT) 21 U/L (0-35); AST (SGOT) 25 U/L (14-36); Albumin 4.1 g/dl (3.5-5.0); Alkaline Phosphatase 76 U/L (38-126); Blood Urea Nitrogen 52 mg/dl (7-17); Calcium 10.2 mg/dl (8.4-10.2); Carbon Dioxide 15 mmol/L (22-30); Chloride 110 mmol/L (98-107); Estimated Creatinine Clearance 28 ml/min; Glucose 182 mg/dl (70-99); Potassium 5.4 mmol/L (3.5-5.1); Sodium 142 mmol/L (135-145); Total Bilirubin 0.2 mg/dl (0.2-1.3); Total Protein 6.4 g/dl (6.3-8.2); eGFR 41.83
[2024-04-19] MEDS: NSS 1000 IV ×3 (06:10→22:02)
[2024-04-19 06:14] LABS: INR 1.08; PT 14.4 Sec (11.4-14.6)
[2024-04-19 06:15] LABS: APTT 26.9 Sec (23.4-35.0)
--- NOTE | 2024-04-19 07:19 | ED.GENMED ---
History of Present Illness
General
Chief Complaint: Rectal Bleeding
Source: patient
Time Seen by Provider: 04/19/24 06:10
History of Present Illness
History of Present Illness:
78-year-old female not on blood thinners presents with several episodes of red to dark red rectal bleeding onset 330 this morning. She denies lightheadedness or shortness of breath. No abdominal pain. She had colonoscopy 2 weeks ago with several
polypectomies. She also had a procedure done 3 days ago which they were assessing the pelvic floor muscles by inserting a balloon in her rectum. She had no bleeding until this morning. I was asked to assess the patient by the nurse as she
continued to bleed here.
Past History
Past History
ED Past Medical History: HTN, NIDDM and Other (Iron deficiency anemia)
ED Past Surgical History: , Gynecological and Orthopedic
Social History
Tobacco: Non-smoker
Alcohol: None
Drug: None
Personal:
Living: with family
Employment: Retired
Phy Exam
Physical Exam
Physical Exam:
General: Well-appearing female no acute respiratory distress
HEENT: Normocephalic atraumatic
Heart: Regular rate and rhythm holosystolic murmur noted
Lungs: Clear no wheeze
Abdomen is soft nontender nondistended
Rectal exam: Darker red blood noted with clots passing per rectum.
Extremities: No cyanosis
Course
Orders/Labs/Results
Orders:
Orders
04/19/24 05:39
Cardiac Monitoring- Treatment ONCE
IV Insert/Care/Rem.- Treatment PRN
O2 Therapy [RESP] Urgent
Titrate/Wean O2 to maintain O2 sat greater than (%): 93
Special Instructions: MAINTAIN CONTINOUS O2 SATS > OR = 93%
Pulse Ox/spot Check [RESP] Urgent
Quantity: 1
Special Instructions: ON ROOM AIR
04/19/24 05:41
Complete Blood Count/With Diff Urgent
Comprehensive Metabolic Panel Urgent
Ferritin Urgent
Comment: ADD ON
Folate Urgent
Comment: ADD ON
Iron Urgent
Comment: ADD ON
PTT Urgent
Prothrombin Time Urgent
Total Iron Binding Urgent
Comment: ADD ON
Vitamin B12 Urgent
Comment: ADD ON
04/19/24 05:44
Type+Screen Urgent
04/19/24 Breakfast
NPO
Allow oral meds: Yes
Allow clear liquids: 4hrs prior to procedure
Comment: may have unrestricted clear liquid up to 4 hrs prior to scheduled procedure
04/19/24 06:10
0.9% Sodium Chloride 1000 ml [Nss] 1,000 ml IV BOLUS
04/19/24 07:14
Blood Bank Products [* Blood Bank Products] Urgent
Blood Bank Products: *Packed RBC Leuko(PRBC's)
Quantity: 2
Transfuse Today: Yes
Reason: Bleeding
CT Angio Abd/Pelvis w/wo IV [CT Abd/pelvis Angio W/wo Iv] Urgent
Comment:
Reason For Exam: GI bleeding
04/19/24 07:15
Pantoprazole 80 mg/100 ml Nss [Protonix] 80 mg in 100 ml .ROUTE .STK-MED
Pantoprazole 80 mg/100 ml Nss [Protonix] 80 mg in 100 ml IV Q10H
Pantoprazole [Protonix IV] 80 mg .ROUTE .STK-MED ONE
Pantoprazole [Protonix IV] 80 mg IV NOW STA
04/19/24 07:44
GASTROINTESTINAL CONSULT Routine
Consulting Provider: Cain Schmitt
Was physician already notified: Yes
04/19/24 07:45
NORepinephrine 4 MG/250 ML [Levophed] 4 mg in 250 ml IV PER PROTOCOL
Initial dose in mcg/min, then titrate:: 2
Titrate to keep:: MAP > 65 mmHg
Titrate by mcg/min:: 1-2 mcg/min
Frequency of titrations (minutes):: 5
Maximum dose in ICU in mcg/min:: 30
Maximum dose in IMU in mcg/min:: 8
Maximum dose in IVU in mcg/min:: 4
Begin to taper infusion when:: Remained at goal for 4hrs
Taper by mcg/min:: 1-2 mcg/min
Frequency of taper (minutes) if patient maintains goal:: 30
Taper to off?: Yes
If infusion off & no longer maintaining goal:: Contact Provider
04/19/24 09:36
Admit/Transfer Patient As Directed
Co-Sign Provider:
Level of Care: Inpatient admission
Assign to:: ICU
Physician / Group: Vlad/hospitalist
Diagnosis: GIB
Reason for Hospitalization: GIB
Expected length of stay greater than two midnights?: Yes
ELOS- Estimated Length of Stay in days: 3
I certify the patient meets the requirements for IP care: Yes
PRN Pain Medication Management As Directed
May give lesser potent ordered pain med per pt: Yes
preference::
Protocol:: Medication orders for pain may be administered in a
manner that supports deferring to patient preference
when the pt is:
- Requesting an ordered lesser potent pain medication.
Least to most potent pain medications are defined
as: acetaminophen < NSAID < tramadol < opioids
(morphine, oxycodone, hydromorphone).
- Requesting a lesser dose of the same medication IF
ORDERED.
- Requesting a less intrusive route of administration
if both routes are prescribed by the provider (PO <
IV).
04/19/24 09:37
Code Status As Directed
Resuscitation Status: Full Code
04/19/24 09:38
Add On- LAB Routine
Tests Added?: ferritin, TIBC, iron level, B12 level, folate
04/19/24 10:32
H&H Stat
04/19/24 11:35
Dextrose 50%-Water [Dextrose 50% Syringe] 12.5 grams IV [id number] PRN
Glucagon [GlucaGen] 1 mg IM PRN PRN
04/19/24 11:35
Activity As Directed
Activity Level: As Tolerated
Bedside Glucose Monitoring As Directed
Frequency: AC&HS
Additional Instructions:: Change to q6h if pt on TPN, tube feeding or not eating
INT (Intravenous Needle Therapy) As Directed
Comment: Place 2 IV catheters of the largest bore possible until stable
Orthostatic Vital Signs As Directed
Orthostatic VS Frequency: Now
Comment: then every four hours for twenty-four hours
Pneumatic Compression Sleeves As Directed
Type: Knee high
Vital Signs As Directed
Frequency: Per unit guidelines
DX Deep Vein Thrombosis Video Routine
04/19/24 12:00
Insulin Aspart Corrective Low [Novolog Flexpen-Low Resistance] See Protocol SC Q6
04/19/24 17:45
H&H Q8H
04/20/24 01:45
H&H Q8H
04/20/24 06:00
Basic Metabolic Panel IN AM
Complete Blood Count/No Diff IN AM
Glycohemoglobin (HgbA1c) IN AM
Magnesium IN AM
04/20/24 09:45
H&H Q8H
04/20/24 17:45
H&H Q8H
04/21/24 01:45
H&H Q8H
04/21/24 06:00
Basic Metabolic Panel IN AM
Complete Blood Count/No Diff IN AM
Magnesium IN AM
04/22/24 06:00
Basic Metabolic Panel IN AM
Complete Blood Count/No Diff IN AM
Magnesium IN AM
04/23/24 06:00
Basic Metabolic Panel IN AM
Complete Blood Count/No Diff IN AM
04/24/24 06:00
Basic Metabolic Panel IN AM
Complete Blood Count/No Diff IN AM
04/25/24 06:00
Basic Metabolic Panel IN AM
Complete Blood Count/No Diff IN AM
Abnormal Lab Results
04/19/24 04/19/24
05:41 05:44
RBC 3.50 L 10^6/uL
(4.20-5.40)
Hgb 10.1 L g/dL
(12.0-16.0)
Hct 32.5 L %
(37.0-47.0)
MCHC 31.1 L g/dL
(33.0-37.0)
Abs Immat Gran (auto) 0.1 H 10^3/uL
(0-0.05)
Absolute Neuts (auto) 8.3 H 10^3/uL
(1.4-6.5)
Absolute Monos (auto) 0.7 H 10^3/uL
(0.1-0.6)
Neutrophils % 76.6 H %
(42.2-75.2)
Lymphocytes % 13.8 L %
(20.5-51.1)
Potassium 5.4 H mmol/L
(3.5-5.1)
Chloride 110 H mmol/L
(98-107)
Carbon Dioxide 15 L mmol/L
(22-30)
BUN 52 H mg/dl
(7-17)
Creatinine 1.3 H mg/dL
(0.6-1.0)
Glucose 182 H mg/dl
(70-99)
% Saturation 16 L %
(20-50)
Vitamin B12 > 1000 H pg/ml
(325-931)
Folate > 20.0 H ng/ml
(2.76-20)
Crossmatch IS Only See Detail
04/19/24 09:45
04/19/24 05:41
Vital Signs
Initial and Last Documented VS:
Initial Vital Signs
Temp Pulse Resp BP Pulse Ox
97.9 F 82 20 95/65 100
04/19/24 05:23 04/19/24 05:23 04/19/24 05:23 04/19/24 05:23 04/19/24 05:23
Last Documented Vital Signs
Temp Pulse Resp BP Pulse Ox
99.1 F 107 16 99/55 100
04/19/24 14:25 04/19/24 14:25 04/19/24 14:25 04/19/24 14:25 04/19/24 14:44
MDM/Problems Addressed
Differential Diagnosis Includes:
Patient here with acute rectal bleeding. Blood pressure initially was soft 95/65. She received a liter of fluid through the triage process and her blood pressure is improved but she continues to bleed. Hemoglobin currently 10.1. Abdominal exam
benign but concern for active bleeding. CTA pending. Blood consent obtained order 2 units of packed red blood cells proactively secondary to the mount of bleeding she is having. GI team contacted as well as hospitalist for admission.
*Critical Care Note
Total Time (30-74mins, 75-104mins- exclusive of procedures): Not Applicable
comment:
35 minutes of critical care time for reassessing patient discussing with consultants going over tests and ordering appropriate interventions
Update Note
Update Note:
Reexamined patient multiple times. Patient became hypotensive again. Still waiting for blood. Units of labs pending. Will order more volume to keep MAP elevated. Also discussed with emergency room attending. Pressors ordered as well. Patient
currently in CAT scan. GI and hospitalist team updated
8:29 AM: Patient reexamined again. Blood pressure 106 systolic feeling better. 2 units of blood now infusing. Will hold on IV fluids given history of CHF. Norepinephrine was just about to be started but will hold off on this pending repeat blood
pressure check.
Patient became hypotensive again. She was started on Levophed. At this point GI team has seen the patient. Hospitalist see. Will admit to ICU
ED Attending Note
-
Portions of this chart may have been created with voice recognition software.� Occasional wrong word or��sound alike� substitutions may have occurred due to the inherent limitations of voice recognition software.
Discharge Plan
Departure
Patient Disposition: Admit
Date of Disposition: 04/19/24
Time of Disposition: 08:51
Admit to: ICU
Presentation/result/management discussed w/ accepting MD/DO: Hospitalist
Discharge Problem:
Acute GI bleeding
Interventions
Interventions:
*Risk Screen - Suicide Last Done: 04/19/24 05:23
*General Assessment Last Done: 04/19/24 05:35
*Neglect/Abuse Screening Last Done: 04/19/24 05:23
ED- Fall Risk Assessment Last Done: 04/19/24 05:35
*ED COVID-19 Vaccine History Last Done: 04/19/24 05:35
*Nursing Disposition Last Done: 04/19/24 11:04
LE-Gaviui-Jupozhfjpb Assessment Last Done: 04/19/24 07:15
ED- Cardiac Assessment Last Done: 04/19/24 07:03
ED- Pulmonary Assessment Last Done: 04/19/24 07:04
Discharge Date and Time
Discharge Date/Time: 04/19/24 10:45
--- NOTE | 2024-04-19 07:22 | CON.GI ---
Addendum entered and electronically signed by Cain Schmitt MD 04/19/24 09:48:
I saw and examined the patient.
The GRAZING AIDE or PA's note was reviewed and I agree with the note.
Comment: 78 yo female began with severe rectal bleeding at 3am. Passing dark blood and clots in ER. Became hypotensive BP 60 systolic requiring levophed initiation. CTA negative but hyperemia in transverse and sigmoid colon and possible gastric
wall thickening but limited w/o oral contrast. Denies NSAIDs. Hgb 10.1 and she rec'd 2 units PRBC and 2L IVF already. BUN elevated at 52. Had recent colonoscopy 04/06 removed 8 polyps w hot snare in rectum, descending, transverse, cecum. Also
had anal manometry 04/15. Denies n/v
REC:
Keep NPO
EGD today to rule out rapid UGIB
If continues to bleed, then prep for colonoscopy tomorrow.
I think likely diverticular bleed vs post polypectomy bleed
Trend Hgb
Original Note:
Consultation
-
Date/Time Consultation Requested: 04/19/24729
Date/Time Consultation Performed: 04/19/24814
Requesting Provider: Bo Greenberg PA-C
Performing Provider: LONDON Torres, Cain Schmitt MD
Reason for Consultation: rectal bleeding
Medical History
Chief Complaint / HPI
Chief Complaint: abdominal pain
History of Present Illness:
Pt is a 77 yo female with a PMH significant for HTN, DM2, CHF, mod to severe , LETI, HH, GERD on Nexium, hx peptic ulcer, gastric polyps, colon polyps, hemorrhoids, presents with rectal bleeding.Pt just completed colonoscopy with Dr. Galeas with
multiple TA polyps, diverticulosis, lipoma internal hemorrhoids and lax sphincter tone. She also completed anorectal manometry 04/15. She now presents with sudden onset of rectal bleeding. Bleeding began at 3:30am on 04/19 with multiple large
volume stools since onset. On admission hbg 10.1 and BUN 52 up from prior 29. CTA on admission neg for bleeding source but noted gastric wall thickening, diverticulosis and some limitation with prior back surgery. Pt admits to hx diarrhea and
constipation. She did have some improved symptoms after colonoscopy and with use of fiber added. No hx underlying bleeding disorder but admits to bruising at times. No NSAID or AC use. + family hx colon ca in both parents requiring surgery.
Pt otherwise admits to History of GERD stable on Nexium. She otherwise denies nausea, vomiting, abdominal pain, or black stools.
Past Medical History
Past Medical History: CHF, GERD, HTN, Hypercholesterolemia, NIDDM, Valvular Disease (mod/severe ) and Other (Chronic back pain, history of peptic ulcer, iron deficiency anemia, HH, hemorrhoids )
Past Surgical History: , Orthopedic and Other (Hand surgery)
Social History
Tobacco: Non-Smoker
Alcohol: Daily (1 drink daily no heavy use )
Drug: None
Personal:
Living: With Family
Employment: Retired
Family History
Family History: Cancer (Both parents with colon cancer in their 70s)
Allergies / Home Medications
Allergy/AdvReac Type Severity Reaction Status Date / Time
Nntjcqw-DOJ-GxS Reductase Allergy muscle Verified 04/19/24 05:25
Inhibitor pain,
still
takes 3
times a
week
�Medication �Instructions �Recorded
rosuvastatin 5 mg tablet 5 mg PO MOWEFR@0800 High 07/05/20
cholesterol
sitagliptin phosphate 100 mg 100 mg PO DAILY Diabetes 07/05/20
tablet (Januvia)
biotin 5 mg capsule 5 mg PO DAILY Supplement 09/12/22
metformin 500 mg tablet,extended 500 mg PO QID Diabetes 09/12/22
release 24 hr
ferrous sulfate 325 mg (65 mg 325 mg PO DAILY 09/13/22
iron) tablet (Feosol)
insulin glargine 100 unit/mL (3 12 - 14 unit SC .SEE BELOW 06/29/23
mL) subcutaneous pen (Lantus Diabetes
Solostar U-100 Insulin)
alpqbibhobvl-hjrhlzbl-fkqpph tablet 1 tab PO DAILY Supplement 06/29/23
empagliflozin 10 mg tablet 10 mg PO DAILY Heart 07/03/23
(Jardiance) disease/condition #30 tabs
furosemide 20 mg tablet (Lasix) 40 mg (2 x 20 mg) PO Q OTHER DAY 07/03/23
PRN Weight Gain #30 tabs
bisoprolol fumarate 5 mg tablet 5 mg PO DAILY 04/06/24
esomeprazole magnesium 40 mg 40 mg PO DAILY 04/06/24
capsule,delayed release
sacubitril 24 mg-valsartan 26 mg 1 tab PO BID 04/06/24
tablet (Entresto)
vitamin A90-rqawt acid 5,000 mcg PO DAILY 04/06/24
Review of Systems
-
History Source: Patient
Constitutional: Reports No Symptoms
EENT: Reports No Symptoms
Respiratory: Reports No Symptoms
Cardiac: Reports No Symptoms
Abdomen/GI: Reports Diarrhea, Constipated and Bloody Stools
: Reports No Symptoms
Musculoskeletal: Reports No Symptoms
Neurological: Reports Dizzy and Weakness
Endocrine: Reports No Symptoms
Hematologic/Lymphatic: Reports Bleeding
Vital Signs
Temp Pulse Resp BP Pulse Ox
97.9 F 64 15 101/38 100
04/19/24 05:23 04/19/24 07:00 04/19/24 07:00 04/19/24 07:00 04/19/24 06:30
Physical Exam
Exam
General: Well Developed, Well Nourished and No Apparent Distress
HEENT: Normocephalic and Anicteric
Respiratory: Clear
Cardiac: Regular Rhythm and Murmur
GI: Soft, Non Tender and Non Distended
Rectal: Other (rectal tube with dark red stool with burgundy clots )
Musculoskeletal: No Clubbing and No Cyanosis
Skin: Warm and Dry
Neuro: Awake, Alert and AO x 3
Psych: Calm
Results
WBC 10.8 10^3/uL (4.8-10.8) 04/19/24 05:41
Hgb 10.1 g/dL (12.0-16.0) L 04/19/24 05:41
Hct 32.5 % (37.0-47.0) L 04/19/24 05:41
MCV 92.9 fL (81.0-99.0) 04/19/24 05:41
Plt Count 374 10^3/uL (130-400) 04/19/24 05:41
Absolute Neuts (auto) 8.3 10^3/uL (1.4-6.5) H 04/19/24 05:41
PT 14.4 Sec (11.4-14.6) 04/19/24 05:41
INR 1.08 04/19/24 05:41
APTT 26.9 Sec (23.4-35.0) 04/19/24 05:41
Sodium 142 mmol/L (135-145) 04/19/24 05:41
Potassium 5.4 mmol/L (3.5-5.1) H 04/19/24 05:41
Chloride 110 mmol/L (98-107) H 04/19/24 05:41
Carbon Dioxide 15 mmol/L (22-30) L 04/19/24 05:41
BUN 52 mg/dl (7-17) H 04/19/24 05:41
Creatinine 1.3 mg/dL (0.6-1.0) H 04/19/24 05:41
Calcium 10.2 mg/dl (8.4-10.2) 04/19/24 05:41
Total Bilirubin 0.2 mg/dl (0.2-1.3) 04/19/24 05:41
AST 25 U/L (14-36) 04/19/24 05:41
ALT 21 U/L (0-35) 04/19/24 05:41
Alkaline Phosphatase 76 U/L (38-126) 04/19/24 05:41
Diagnostic Image Results:
04/19/24 CTA
No findings to confirm active colonic bleeding.
Rectal tube noted.
Colonic diverticulosis.
Diffuse gastric wall thickening again suggested.
Extensive surgery of the lower thoracic spine with prominent beam hardening artifact somewhat limiting evaluation of the organs of the upper abdomen.
Subcentimeter low-attenuation splenic lesion too small to characterize.
Prior GI Procedures:
EGD: 08/2022- [facility] - Normal esophagus.
- Nodular mucosa in the gastric body. Biopsied.
- Multiple gastric polyps. Biopsied.
- Normal examined duodenum.
Took awhile to distend but eventually did.
Colonoscopy: 04/06/24 Do
- Non-bleeding internal hemorrhoids.
- Lax sphinter tone.
- Diverticulosis in the sigmoid colon, in the
descending colon and in the ascending colon.
- The examination was otherwise normal.
- The examined portion of the ileum was normal.
Biopsied.
- One 8 mm polyp in the rectum, removed with a hot
snare. Resected and retrieved.
- Two 6 to 8 mm polyps in the cecum, removed with a
hot snare. Resected and retrieved.
- Two 2 to 6 mm polyps in the transverse colon,
removed with a hot snare. Resected and retrieved.
- Three 6 to 12 mm polyps in the descending colon,
removed with a hot snare. Resected and retrieved.
Tattooed.
- Lipoma in the descending colon. Biopsied.
- Moderate colonic spasm. Transversed using adult
endoscope.
- Biopsies were taken with a cold forceps from the
entire colon for evaluation of microscopic colitis.
bx Ileal biopsy without definitive histopathology Cecum, transverse colon, descendingrectum, colon polyps adenomatous changes no high-grade dysplasia.Colon descending nodule consistent with lipoma other random colon biopsy negative
Assessment / Plan
-
Pt is a 77 yo female with a PMH significant for HTN, DM2, CHF, mod to severe , LETI, HH, GERD on Nexium, hx peptic ulcer, gastric polyps, colon polyps, hemorrhoids, presents with rectal bleeding.Pt just completed colonoscopy with Dr. Galeas with
multiple TA polyps, diverticulosis, lipoma internal hemorrhoids and lax sphincter tone. She also completed anorectal manometry 04/15. She now presents with sudden onset of rectal bleeding. Bleeding began at 3:30am on 04/19 with multiple large
volume stools since onset. On admission hbg 10.1 and BUN 52 up from prior . CTA on admission neg for bleeding source but noted gastric wall thickening, diverticulosis and some limitation with prior back surgery. Pt admits to hx diarrhea and
constipation. She did have some improved symptoms after colonoscopy and with use of fiber added. No hx underlying bleeding disorder but admits to bruising at times. No NSAID or AC use. + family hx colon ca in both parents requiring surgery.
-rectal bleeding
-anemia hx iron deficiency
-hypotension requiring pressors on admission
-colon polyp with recent colonoscopy with polyp resection 04/06
-hx diarrhea and constipation with recent rectal manometry prior to admission 04/15
-CT with gastric wall thickening
-GERD on chronic PPI
Other pertinent medical hx:
-mod to severe
-HH
-hx gastric polyps
-hemorrhoids
-PUD
-HTN
-DM2
-family hx colon CA
PLAN:
Etiology of bleeding related to lower GI bleed- post polypectomy, diverticular vs aggressive upper source with BUN elevation and hypotension vs other
color with darker red does not appear to be rectal source with recent manometry completed 04/15
agree with transfusion-- trend hbg and see if further transfusion needed
s/p CTA neg for bleeding source
follow stool record if continued bleeding consider prep then proceed with colon if neg EGD
2 large bore IV
pressors as needed for BP support
cont PPI gtt for now
NPO
family update
-
-
Thank you for consultation and allowing me to participate in the patient's care. Please call the instructor extension work GI physician during the after hours with any questions or concerns.
[2024-04-19] MEDS: PROTONIX 100 IV ×2 (07:29→16:08)
[2024-04-19] MEDS: PROTONIX IV 80 MG IV (07:29)
--- NOTE | 2024-04-19 07:45 | HPS.HSE ---
Addendum entered and electronically signed by Maryam Chu MD 04/19/24 09:51:
CC Mx for hemorrhagic/hypovolemic shock
CC time spent 47 min
Original Note:
Family Physician
-
Family Physician: Kendrick Ivory
Chief Complaint
-
GIB
History of Present Illness
HPI: 78-year-old female PMH HTN, HLD, CHF, IDDM, GERD, Iron deficiency anemia, p/w GIB/ BRBPR that started at 3 am in the morning of admission.
She denies to abd pain, change in BM, lightheadedness or shortness of breath.
Of note, she had colonoscopy 2 weeks [employer]IVE [employer] OFFICER with several polypectomies. She also had an urologic procedure done 3 days [employer] OFFICER to assess her pelvic floor muscles.
She is not on blood thinner.
Medical History
Past Medical History
Past Medical History: Reports Other
Additional Past Medical History:
HTN,
HLD,
CHF,
IDDM,
GERD,
Iron deficiency anemia
Past Surgical History: Reports Other
Additional Past Surgical History:
,
C scope
Social History
Tobacco: Non-smoker
Alcohol: Occasional
Drug: None
Personal:
Living: With Family
Employment: Not Employed
Family History
Family History: Not pertinent (reviewed)
Allergies / Home Medications
Allergies reflects when Allergies were last updated in [email or web address].
Home Medications with original date entered in [email or web address]
Allergy/Medication List:
Allergies
Allergy/AdvReac Type Severity Reaction Status Date / Time
Vghvcic-XTL-OrX Reductase Allergy muscle Verified 04/19/24 05:25
Inhibitor pain,
still
takes 3
times a
week
Home Medications
rosuvastatin 5 mg tablet 5 mg PO MOWEFR High cholesterol 07/05/20
sitagliptin phosphate 100 mg tablet (Januvia) 100 mg PO DAILY Diabetes 07/05/20
biotin 5 mg capsule 5 mg PO DAILY Supplement 09/12/22
metformin 500 mg tablet,extended release 24 hr 500 mg PO QID Diabetes 09/12/22
ferrous sulfate 325 mg (65 mg iron) tablet (Feosol) 325 mg PO DAILY 09/13/22
insulin glargine 100 unit/mL (3 mL) subcutaneous pen (Lantus Solostar U-100 Insulin) 12 - 14 unit SC AC Diabetes 06/29/23
bezdiyryoxmc-wcytorzl-fszcqx tablet (Vision Plus Lutein tablet) 1 tab PO DAILY Supplement 06/29/23
empagliflozin 10 mg tablet (Jardiance) 10 mg PO DAILY Heart disease/condition #30 tabs 07/03/23
bisoprolol fumarate 5 mg tablet 5 mg PO DAILY 04/06/24
esomeprazole magnesium 40 mg capsule,delayed release 40 mg PO DAILY 04/06/24
sacubitril 24 mg-valsartan 26 mg tablet (Entresto) 1 tab PO BID 04/06/24
vitamin B12 0.5 mg-folic acid 1 mg tablet 1 tab PO DAILY 04/06/24
furosemide 20 mg tablet (Lasix) 40 mg PO DAILYPRN PRN Weight Gain 04/19/24
Review of Systems
-
Abdomen/GI: Reports See HPI and Bloody Stools; Denies Abdominal Pain
Physical Exam
Vital Signs
Vital Signs
Temp Pulse Resp BP Pulse Ox
36.6 C 64 15 101/38 100
04/19/24 05:23 04/19/24 07:00 04/19/24 07:00 04/19/24 07:00 04/19/24 06:30
Physical Exam
General: Well Developed, Well Nourished, No Apparent Distress, Comfortable and Conversant
HEENT: NormoCephalic, Moist mucous membranes and Atraumatic
Respiratory: Clear and Non Labored Respirations; No Accessory Resp Muscle Use
Cardiac: S1/S2 and Regular Rhythm; No Murmur or Rub
GI: Soft, Non Tender, Non Distended and Normal Bowel Sounds; No Organomegaly
Rectal: Deferred by Provider
Musculoskeletal: No Clubbing, No Cyanosis and No Edema
Skin: No Rash
Neuro: Awake and Alert
Psych: Calm and Intact Judgment/Insight
Laboratory Results
-
04/19/24 05:41
04/19/24 05:41
Laboratory Results
PT 14.4 Sec (11.4-14.6) 04/19/24 05:41
INR 1.08 04/19/24 05:41
APTT 26.9 Sec (23.4-35.0) 04/19/24 05:41
Total Bilirubin 0.2 mg/dl (0.2-1.3) 04/19/24 05:41
AST 25 U/L (14-36) 04/19/24 05:41
ALT 21 U/L (0-35) 04/19/24 05:41
Alkaline Phosphatase 76 U/L (38-126) 04/19/24 05:41
Data Reviewed
-
CT Scan: Report Reviewed by me
Lab Data: Labs Reviewed by me
Impression/Plan
-
HPI: 78-year-old female PMH HTN, HLD, CHF, IDDM, GERD, Iron deficiency anemia, p/w GIB/ BRBPR that started at 3 am in the morning of admission.
She denies to abd pain, change in BM, lightheadedness or shortness of breath.
Of note, she had colonoscopy 2 weeks [employer] OFFIC[employer] with several polypectomies. She also had an urologic procedure done 3 days [employer] OFFIC[employer] to assess her pelvic floor muscles.
She is not on blood thinner.
A/P:
# BRBPR
# Hemorrhagic/hypovolemic shock due to above, POA
# Iron deficiency anemia
CT AP Angio without active bleed
s/p IVF
started Levophed for BP support
transfused 2 units PRBC, follow repeat Hgb
check iron panel etc.
started Protonix drip, cont
GI CS
NPO
Admit to ICU
# Chronic HFrEF, stable
# History of aortic stenosis
# Hypertension
previous echo with EF 30-35% Stage II diastolic dysfunction mod severe and MR
Hold BP meds with current shock state
# IDDM
cover with sliding scale
resume [employer] OFFICER insulin, hypoglycemic when able
# Hyperlipidemia
[employer] SERVICES OFFICER statin
# GERD
DVT prophylaxis: SCD
Full code
DW at bedside
DW GI
--- NOTE | 2024-04-19 08:10 | EDRN ---
Hospitalist notified that pt has returned from CT
[2024-04-19] MEDS: LEVOPHED 250 IV ×3 (08:26→22:37)
[2024-04-19 10:14] LABS: Iron 55 ug/dl (37-170)
[2024-04-19 10:23] LABS: Percent Saturation 16 % (20-50); Total Iron Binding Capacity 342 ug/dl (265-497)
[2024-04-19 10:39] LABS: Hematocrit 29.9 % (37.0-47.0)
[2024-04-19 10:52] LABS: Ferritin 19.1 ng/ml (11.1-264.0)
[2024-04-19 11:23] LABS: Folate > 20.0 ng/ml (2.76-20); Vitamin B12 > 1000 pg/ml (239-931)
--- NOTE | 2024-04-19 12:09 | W.PN.UPDATE ---
Update Note
Progress Note Update
After discussing with Anesthesia, given the risks of anesthesia and the relatively low degree of suspicion for upper GI bleed, we will hold off on EGD. If ongoing bleeding we will plan colonoscopy to look for likely colonic source. If higher
degree for upper GI bleeding, we can reconsider the decision.
[2024-04-19 12:27] LABS: Glucose - Point of Care 178 mg/dl (70-99)
--- NOTE | 2024-04-19 12:39 | CON.INTV ---
Addendum entered and electronically signed by Keiko Dewey DO 04/19/24 17:39:
Intubated for procedure but given hypotension, can remain intubated overnight
Plan for SBT in AM if no further procedures are needed
Original Note:
Consultation
Consultation Request
Date/Time Consultation Requested: 04/19/24
Date/Time Consultation Performed: 04/19/24
Performing Provider: Zuleima
Reason for Consultation: GIB
Medical History
-
History of Present Illness:
Patient is a 78-year-old female with previous history of hypertension, hyperlipidemia, congestive heart failure, diabetes presenting to ER with bright red blood per rectum that started at 3 AM, morning of admission. She denies abdominal pain,
lightheadedness, shortness of breath. Of note she had undergone recent outpatient colonoscopy 2 weeks ago and underwent several polypectomies. She had a urologic procedure done 3 days prior to arrival to assess her pelvic floor muscles. She has
never had GI bleeding in the past, denies any additional history of NSAID use. She does not take anticoagulation as an outpatient. In ER, hemoglobin was noted to be 10.1, she has had ongoing bleeding since admission. She is now admitted to ICU
for active bleeding.
Past Medical History
Past Medical History: Other (see list below)
Social History
Tobacco: Non-smoker
Alcohol: None
Drug: None
Family History
Family History: Reviewed & Not Pertinent
Allergies / Home Medications
Allergies
Allergy/AdvReac Type Severity Reaction Status Date / Time
Emvyjqn-GJV-BaG Reductase Allergy muscle Verified 04/19/24 05:25
Inhibitor pain,
still
takes 3
times a
week
Home Medications
�Medication �Instructions �Recorded �Confirmed �Last Taken �Type
rosuvastatin 5 mg tablet 5 mg PO MOWEFR High cholesterol 07/05/20 04/19/24 04/04/24 08:00 History
sitagliptin phosphate 100 mg 100 mg PO DAILY Diabetes 07/05/20 04/19/24 04/05/24 08:00 History
tablet (Januvia)
biotin 5 mg capsule 5 mg PO DAILY Supplement 09/12/22 04/19/24 04/05/24 History
metformin 500 mg tablet,extended 500 mg PO QID Diabetes 09/12/22 04/19/24 04/05/24 18:00 History
release 24 hr
ferrous sulfate 325 mg (65 mg 325 mg PO DAILY Supplement 09/13/22 04/19/24 04/05/24 08:00 History
iron) tablet (Feosol)
insulin glargine 100 unit/mL (3 12 - 14 unit SC AC Diabetes 06/29/23 04/19/24 04/05/24 20:00 History
mL) subcutaneous pen (Lantus
Solostar U-100 Insulin)
ktztqhrznwzh-ackniiiw-tzbvok 1 tab PO DAILY Supplement 06/29/23 04/19/24 04/01/24 History
tablet (Vision Plus Lutein tablet)
bisoprolol fumarate 5 mg tablet 5 mg PO DAILY blood pressure 04/06/24 04/19/24 04/19/24 History
esomeprazole magnesium 40 mg 40 mg PO DAILY Gastrointestinal 04/06/24 04/19/24 04/05/24 08:00 History
capsule,delayed release Issue
sacubitril 24 mg-valsartan 26 mg 1 tab PO BID heart failure 04/06/24 04/19/24 04/19/24 History
tablet (Entresto)
vitamin B12 0.5 mg-folic acid 1 mg 1 tab PO DAILY Supplement 04/06/24 04/19/24 04/05/24 08:00 History
tablet
empagliflozin 10 mg tablet 10 mg PO DAILY Heart 04/19/24 04/19/24 Unknown History
(Jardiance) disease/diabetes
furosemide 20 mg tablet (Lasix) 40 mg PO DAILYPRN PRN Weight Gain 04/19/24 04/19/24 Unknown History
Review of Systems
-
History Source: Patient
All other systems: Negative unless noted
Vitals / Labs / Diagnostic Testing
Vital Signs
Temp Pulse Resp BP Pulse Ox
97.9 F 86 12 73/52 98
04/19/24 05:23 04/19/24 11:45 04/19/24 11:45 04/19/24 11:30 04/19/24 11:45
Lab Data
04/19/24 05:41
Laboratory Results
04/19/24 04/19/24
05:41 12:12
PT 14.4
INR 1.08
APTT 26.9 Cancelled
Diagnostic Testing:
Physical Exam
-
HEENT: Normocephalic, Anicteric and Moist Mucous Membranes
Cardiovascular: S1/S2 and Regular Rhythm
Respiratory: Clear and Non-Labored Respirations
GI: Soft, Non Distended and Non Tender
Neurology: Awake, Alert, Oriented and No Motor Deficits
Skin: Warm, Dry and Good Color
General: Comfortable and Other (NAD)
Assessment
-
Patient is a 78-year-old female with previous history of hypertension, hyperlipidemia, congestive heart failure, diabetes presenting to ER with bright red blood per rectum that started at 3 AM, morning of admission. She denies abdominal pain,
lightheadedness, shortness of breath. Of note she had undergone recent outpatient colonoscopy 2 weeks ago and underwent several polypectomies. She had a urologic procedure done 3 days prior to arrival to assess her pelvic floor muscles. She has
never had GI bleeding in the past, denies any additional history of NSAID use. She does not take anticoagulation as an outpatient. In ER, hemoglobin was noted to be 10.1, she has had ongoing bleeding since admission. She is now admitted to ICU
for active bleeding.
Acute lower GI bleed
Acute blood loss anemia
Bright red blood per rectum
Recent polypectomy procedure, 2 weeks prior
Hypotension, likely hypovolemic shock
Hyperkalemia
Metabolic acidosis
LEONARDO, creatinine 1.3 (BL 0.9�1.0)
Conditions present [employer] AL[employer] INST[employer]ER
diabetes mellitus type 2
hyperlipidemia
hypertension
Vitamin D deficiency
B/L hand surgery-dupuytrens contraction x6 surgeries
colon polyps
GERD
diverticulitis/hemorrhoids
sliding hiatal hernia
Gastric ulcer
Osteopenia
Diastolic dysfunction/CHF/Nonischemic cardiomyopathy EF 35-40%
Severe
hysterectomy
tonsillectomy
Oral surgery x2 09/2021
Posterior decompression from T10-T12 with laminectomy and complete left T11-12 facetectomy for excision of extradural lesion which appeared to be a synovial cyst 01/12/2023
Extension of fusion to T11-L1 01/19/2023
Cardiac catheterization 07/01/23
DH Symptomatic anemia, iron deficiency-07/05/2012
Plan
No current signs of metabolic encephalopathy or MS changes/following commands
Denies pain at this time.
Pain/sedation: PRN, add sedation post intubation
RASS goals: 0
Hemodynamically unstable, requiring pressors.
Requiring pressors: levophed noted, add on vasopressin
Cardiac history reviewed-- NICM with reduced EF, severe As noted on ECHO
Cards eval for preop eval
Prior ECHO reviewed below
Hold home meds while hypotensive
Monitor on telemetry
Oxygen needs: stable on RA, but will plan for elective intubation for bedside EGD
Prior history of lung disease: none, no prior PFTs for review
Supplemental O2 as indicated to maintain sats > 89%
CXR/CT reviewed indicating no acute process
LGIB suspected, GI aware, planning to bedside colon
NPO, resume diet when able
PPI IV
Repeat H&H
LEONARDO present, likely ATN in setting of hypovolemia/GIB/shock
Creat at baseline around 0.9, trend labs
Void trials
Follow urine output, critical I/Os
Replete electrolytes as needed
No signs/symptoms suspicious for infectious etiology at this time
Observe off antibiotics for now
Follow fever trend, WBC count
Bleeding, acute blood loss, history of anemia
Follow CBC
DVT prophylaxis as assessed based on risk, including mechanical SCDs
Can transfuse if indicated for Hb <7, plt < 10
Transfusions: 3 units given total, 4th on hold
INR WNL
No prior h/o thyroid disease
H/o diabetes, can continue on home meds, SS for coverage
HbA1c 7.4 (06/30/23)
We will follow
Diagnostic Data
Chest X-Ray:04/19/24-No radiographic evidence of acute cardiopulmonary abnormality.
04/19/24- The the tracheal tube tip projects over the level of the verónica. Consider slight retraction.
CT Scan: AP 04/19/24- No findings to confirm active colonic bleeding. Rectal tube noted. Colonic diverticulosis. Diffuse gastric wall thickening again suggested. Extensive surgery of the lower thoracic spine with prominent beam hardening artifact
somewhat limiting evaluation of the organs of the upper abdomen. Subcentimeter low-attenuation splenic lesion too small to characterize.
Echo: 12/18/23- Normal biventricular size and systolic function without regional wall motion abnormality. Estimated LVEF 50-55%. Abnormal (paradoxical) septal motion consistent with left bundle branch block. Mild/moderate mitral regurgitation.
Moderate/severe aortic stenosis. The peak gradient across the valve is 46 mmHg with a mean of 26 mmHg. Using a LVOT diameter of 2.0 cm, the NILA is 0.8 cm sq. Mild aortic regurgitation. Compared to 09/10/23: LVEF has improved from 35-40% to 50-55%.
AR has improved from mild/moderate to mild.
09/10/23- -Left ventricular ejection fraction is 35-40%. Global hypokinesis. Abnormal (paradoxical) septal motion consistent with left bundle branch block. Normal right ventricular size and function.
-Mild to moderate mitral regurgitation. -Severe aortic stenosis; peak/mean gradients are 38/24 mmHg, calculated NILA 0.8 cm2. (These gradients are lower than expected for this degree of stenosis due to decreased left ventricular systolic
function.) -Mild to moderate aortic regurgitation (PHT = 400 ms). Compared to previous echo on 06/29/2023, there appears to be a slight improvement in LVEF (previously 30-35%). PASP has significantly decreased (previously 60- 65 mmHg).
PFT's:
Reports and relevant images were personally reviewed.
Critical Care time 90 mins -- The patient is admitted for acute critical illness for the treatment of vital organ failure and/or prevention of further life-threatening conditions. Total care includes time spent in review of history, physical exam,
medications, hemodynamic/ventilator parameters, laboratory data, imaging and discussion with house staff, pharmacy, respiratory therapy, plate grainer apprentice, and nursing.
--- NOTE | 2024-04-19 12:46 | PTCARENOTE ---
Received pt from GI lab into [facility] [id number]. Pt AOx3, denies pain. NSR on monitor. BP low, on Levophed @ 6mcg, titrated to keep MAP >65. LSCTA, diminished at bases, 98% on RA. Hyperactive BS, continues w/ melena w/ large clots. GI RN PEDIATRIC Kathya Cullen notified.
OK for clears. Full assessment and admission as documented. PIV x 4. Protonix gtt.
[2024-04-19] MEDS: NOVOLOG FLEXPEN-LOW RESISTANCE 1 UNITS SC (13:02)
--- NOTE | 2024-04-19 13:30 | PTCARENOTE ---
Dr Schmitt, Dr Dewey and Dr Chu made dropping BP and passing of multiple moderate melena.Levophed gtt @ 10mcg/min. Stat H/H drawn now. IVFs started, NS @ 120ml/hr.
[2024-04-19] MEDS: PITRESSIN 100 IV ×2 (13:59→23:10)
[2024-04-19 14:00] LABS: Hematocrit 25.1 % (37.0-47.0); Hemoglobin 8.6 g/dL (12.0-16.0)
--- NOTE | 2024-04-19 14:00 | PTCARENOTE ---
Dr Schmitt at bedside to evaluate pt. Vasopressin gtt started. 2 units PRBC ordered, 1st started at this time. BP 99/55. Plan to scope at bedside. Discussing w/ pt and . Dr Yan made aware.
--- NOTE | 2024-04-19 14:57 | PTCARENOTE ---
Anesthesia and GI team at bedside. Pt intubated and sedated. #7 EET 23cm R lip. Vent settings AC 14/500/5/100%. EGD completed, no bleed seen. Colonoscopy underway at this time.
--- NOTE | 2024-04-19 15:28 | W.PN.UPDATE ---
Update Note
Progress Note Update
EGD/colonoscopy done
EGD showed granular mucosa in cardia, not biopsied
Colon showed cecal ulcer with visible vessel, injected w 6cc dilute epi and clipped x 3
Erosions through colon at prior polypectomy site but no high risk stigmata
Diverticulosis
Lipoma transverse colon
Tattoo, descending colon without adjacent bleeding site
REC:
Monitor in ICU
If active bleeding recurs, check repeat CTA to localize bleed and possible treat
[2024-04-19] MEDS: SUBLIMAZE 50 MCG IV ×2 (16:05→19:30)
[2024-04-19] MEDS: DIPRIVAN 100 IV (16:06)
--- NOTE | 2024-04-19 16:25 | PTCARENOTE ---
pt received from previous rn- pt in procedure at bedside with GI team. pt remains intubated post colonoscopy. education provided to at bedside, verbalized understanding. pt given prn fentanyl and propofol started as per order. pt arouses and
answers yes and no appropriately. pt incontinent of bloody stools. full bed bath provided. turned and repositioned. unit of packed cells continues. protonix, vaso and levophed gtts continue as per order. all 4 ivs c/d/i. all safety precautions in
place. nsr on monitor. lungs diminished. positive bowel sounds, weak palpable pulses.
--- NOTE | 2024-04-19 16:37 | CON.CAR ---
Consultation
Consultation Request
Date/Time Consultation Requested: 04/19/2024
Date/Time Consultation Performed: 04/19/2024 at 4 PM
Requesting Provider: Dr. Chu
Performing Provider: Dr. Figueroa
Reason for Consultation: Aortic stenosis
Medical History
-
History of Present Illness:
78-year-old woman with history of moderate to severe aortic stenosis, left heart failure , nonischemic cardiomyopathy with previous ejection fraction 35% which was 50 to 55% by most recent echo, LBBB hypertension hypercholesterolemia diabetes, iron
deficiency anemia who presented to the hospital with bright red blood per rectum. Patient had colonoscopy and polypectomies 2 weeks ago. Patient now admitted to the ICU. Patient was felt to have hemorrhagic shock and hypotension and required
pressors. Patient required multiple units of PRBCs EGD today showed granular mucosa and cardia. No acute source of bleeding reported colon showed cecal ulcer but with visible vessel injected with epi and clipped erosions through colon a prior
polypectomy site but no high risk stigmata
Patient has received 3 units of PRBCs still remains vented and on pressors.
Echocardiogram 12/18/2023 ejection fraction 50 to 55% mild to moderate mitral rotation moderate to severe aortic stenosis peak gradient 46 mmHg and a mean gradient of 26 mmHg. Aortic valve area 0.8 cm� mild aortic regurgitation
Cardiac catheterization 07/19/2023 without significant coronary artery disease dobutamine challenge aortic pseudo stenosis with normalization of aortic valve area through persistent aortic valve gradient with infusion of dobutamine 20 mics per
kilogram per minute normal filling pressures. Aortic valve gradient by cath 17 mmHg
Past Medical History
Past Medical History: Other (As above)
Social History
Tobacco: Non-Smoker
Family History
Family History: Other (Negative for premature CAD)
Allergies / Home Medications
Allergy/AdvReac Type Severity Reaction Status Date / Time
Owxwdpp-VFT-XmU Reductase Allergy muscle Verified 04/19/24 05:25
Inhibitor pain,
still
takes 3
times a
week
�Medication �Instructions �Recorded �Confirmed �Type
rosuvastatin 5 mg tablet 5 mg PO MOWEFR High cholesterol 07/05/20 04/19/24 History
sitagliptin phosphate 100 mg 100 mg PO DAILY Diabetes 07/05/20 04/19/24 History
tablet (Januvia)
biotin 5 mg capsule 5 mg PO DAILY Supplement 09/12/22 04/19/24 History
metformin 500 mg tablet,extended 500 mg PO QID Diabetes 09/12/22 04/19/24 History
release 24 hr
ferrous sulfate 325 mg (65 mg 325 mg PO DAILY Supplement 09/13/22 04/19/24 History
iron) tablet (Feosol)
insulin glargine 100 unit/mL (3 12 - 14 unit SC AC Diabetes 06/29/23 04/19/24 History
mL) subcutaneous pen (Lantus
Solostar U-100 Insulin)
zbxgndksztyc-buphbdxu-rqgsea 1 tab PO DAILY Supplement 06/29/23 04/19/24 History
tablet (Vision Plus Lutein tablet)
bisoprolol fumarate 5 mg tablet 5 mg PO DAILY blood pressure 04/06/24 04/19/24 History
esomeprazole magnesium 40 mg 40 mg PO DAILY Gastrointestinal 04/06/24 04/19/24 History
capsule,delayed release Issue
sacubitril 24 mg-valsartan 26 mg 1 tab PO BID heart failure 04/06/24 04/19/24 History
tablet (Entresto)
vitamin B12 0.5 mg-folic acid 1 mg 1 tab PO DAILY Supplement 04/06/24 04/19/24 History
tablet
empagliflozin 10 mg tablet 10 mg PO DAILY Heart 04/19/24 04/19/24 History
(Jardiance) disease/diabetes
furosemide 20 mg tablet (Lasix) 40 mg PO DAILYPRN PRN Weight Gain 04/19/24 04/19/24 History
Review of Systems
-
Unable to obtain full review of systems at this time due to: Patient Intubation
Physical Exam
Vital Signs
Temp Pulse Resp BP Pulse Ox
99.1 F 86 14 96/44 98
04/19/24 14:25 04/19/24 16:00 04/19/24 16:00 04/19/24 16:00 04/19/24 16:21
Lab Results
04/19/24 05:41
Physical Exam
General: Other (Awake and nodding head to some questions. Vented extract movements appear intact ET tube intact)
HEENT: Normocephalic and Anicteric
Respiratory: Other (No wheezes. Coarse vented breath sounds)
Cardiac: Regular Rhythm and Other (Soft systolic murmur)
GI: Non Tender, Normal Bowel Sounds and Distended
Musculoskeletal: No Clubbing and No Cyanosis
Skin: Warm
Neuro: Awake
Psych: Calm
Impression / Plan
-
.
Acute lower GI bleed.
-Patient given multiple units of PRBCs
-Now post colonoscopy and Treatment of cecal ulcer with visible vessel with injection and clip
-Additional treatment as directed by GI
.
Aortic stenosis. Moderate to severe by last echo report with mean gradient of 26 mmHg. Mean gradient was 16 mmHg in the setting of cardiomyopathy during cardiac catheterization 06/2023 and with dobutamine challenge was felt not to have severe
aortic stenosis.
Also patient with no evidence of significant coronary disease by the catheterization
.
History of left heart failure nonischemic cardiomyopathy with improvement in left ventricular function by last echo..
-Echo to reassess left ventricular function
-Monitor volume status with administration of fluids and PRBC.
.
Hypotension. Patient reported to have hemorrhagic shock on presentation. Patient with hemoglobin 9.5 and just completed unit of PRBCs. Still remains on pressors.
-Continue to treat GI bleeding as directed by GI. Continue to monitor hemoglobin closely
-Wean pressors as tolerated
.
Mitral regurgitation mild to moderate by last echo
.
LBBB chronic
Data Reviewed
-
EKG: Report Reviewed by me
Radiology: Report Reviewed by me
Medical Tests (Nuc Med, Echo etc): Report Reviewed by me
Labs: Labs Reviewed by me
[2024-04-19] MEDS: NOVOLOG FLEXPEN-LOW RESISTANCE 2 UNITS SC ×2 (17:01→23:22)
[2024-04-19 17:07] LABS: Glucose - Point of Care 244 mg/dl (70-99)
[2024-04-19 17:22] LABS: Hematocrit 28.3 % (37.0-47.0); Hemoglobin 9.5 g/dL (12.0-16.0)
[2024-04-19 17:45] LABS: Triglycerides 189 mg/dl (10-149)
--- NOTE | 2024-04-19 18:13 | PTCARENOTE ---
Dr. Keiko Yan aware of repeat hgb, no signs of further bleeding, ok to hold off next unit of blood.
--- NOTE | 2024-04-19 19:22 | PTCARENOTE ---
Received pt via handoff. Pt alert and oriented to verbal, able to follow simple commands and move all extremities. NSR with weak pulses on palpation. #7 ETT, 21@lip, 40%/14/500/5. Hypoactive bowel sounds in all 4Q. Skin CDI. Gtts running see
flowsheet. Bill at bedside.
[2024-04-19 23:32] LABS: Glucose - Point of Care 246 mg/dl (70-99)
[2024-04-19] MEDS: NOVOLOG FLEXPEN 4 UNITS SC (23:50)
[2024-04-19] MEDS: NOVOLOG FLEXPEN-MODERATE RESISTANCE 3 UNITS SC (23:51)
[2024-04-20] VITALS (71 sets, daily range): BP systolic 68–167; BP diastolic 32–144; BMI 22.1
[2024-04-20] MEDS: PROTONIX 100 IV ×3 (04:55→22:43)
[2024-04-20] MEDS: DIPRIVAN 100 IV (04:55)
[2024-04-20] MEDS: LEVOPHED 250 IV ×4 (04:56→22:44)
--- NOTE | 2024-04-20 05:04 | DOWNTIME ---
There was a [employer] Client Transverse Abdominal Muscle Surgeon Downtime on 04/20/2024 from 0100 to 04/20/2024 at 0350. Downtime documentation of patient's care, including medication administrations, has been reconciled in the electronic record per guidelines. Refer to the
patient's paper chart under the miscellaneous tab to see printed paper medication records and downtime forms.
[2024-04-20 06:06] LABS: Glucose - Point of Care 239 mg/dl (70-99)
--- NOTE | 2024-04-20 06:21 | PTCARENOTE ---
All systems reassessed, labs drawn, hygiene performed. Pt straight cath'd for 1000 mL's.
[2024-04-20] MEDS: NSS 1000 IV (06:24)
[2024-04-20] MEDS: NOVOLOG FLEXPEN 4 UNITS SC ×2 (06:25→12:04)
[2024-04-20] MEDS: NOVOLOG FLEXPEN-HIGH RESISTANCE 4 UNITS SC (06:25)
[2024-04-20] MEDS: NOVOLOG FLEXPEN-MODERATE RESISTANCE SC (06:32)
[2024-04-20 06:52] LABS: Blood Urea Nitrogen 46 mg/dl (7-17); Calcium 7.2 mg/dl (8.4-10.2); Carbon Dioxide 7 mmol/L (22-30); Chloride 106 mmol/L (98-107); Estimated Creatinine Clearance 40 ml/min; Glucose 545 mg/dl (70-99); Magnesium 1.2 mg/dl (1.6-2.3); Potassium 5.2 mmol/L (3.5-5.1); Sodium 126 mmol/L (135-145); eGFR 46.05
[2024-04-20 07:04] LABS: Hematocrit 25.8 % (37.0-47.0); Hemoglobin 9.2 g/dL (12.0-16.0); Mean Corp Hgb Conc. 35.7 g/dL (33.0-37.0); Mean Corpuscular Hgb 30.7 pg (27.0-31.0); Mean Platelet Volume 10.7 fL (7.4-10.4); Platelet Count 173 10^3/uL (130-400); Red Cell Dist. Width 14.2 % (11.5-14.5); White Blood Cell Count 14.4 10^3/uL (4.8-10.8)
--- NOTE | 2024-04-20 07:12 | W.PN.INTV ---
Today's Communication / Plan
Recommendations
Doing well post emergent colon, no further bleeding
Hb stable, repeat H&H
SBT and extubated, doing well
Wean pressors as tolerated
Advance diet, OOB/PT, OT
Assessment
-
Patient is a 78-year-old female with previous history of hypertension, hyperlipidemia, congestive heart failure, diabetes presenting to ER with bright red blood per rectum that started at 3 AM, morning of admission. She denies abdominal pain,
lightheadedness, shortness of breath. Of note she had undergone recent outpatient colonoscopy 2 weeks ago and underwent several polypectomies. She had a urologic procedure done 3 days prior to arrival to assess her pelvic floor muscles. She has
never had GI bleeding in the past, denies any additional history of NSAID use. She does not take anticoagulation as an outpatient. In ER, hemoglobin was noted to be 10.1, she has had ongoing bleeding since admission. She is now admitted to ICU
for active bleeding.
Acute lower GI bleed s/p urgent colon at bedside 04/19/24
Bleeding polypectomy site/cecal ulcer s/p injected epi and clip x 3
Acute blood loss anemia
Bright red blood per rectum
Recent polypectomy procedure, 2 weeks prior
Hypotension, likely hypovolemic shock
Hyperkalemia
Metabolic acidosis
LEONARDO, creatinine 1.3 (BL 0.9�1.0)
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
diabetes mellitus type 2
hyperlipidemia
hypertension
Vitamin D deficiency
B/L hand surgery-dupuytrens contraction x6 surgeries
colon polyps
GERD
diverticulitis/hemorrhoids
sliding hiatal hernia
Gastric ulcer
Osteopenia
Diastolic dysfunction/CHF/Nonischemic cardiomyopathy EF 35-40%
Severe
hysterectomy
tonsillectomy
Oral surgery x2 09/2021
Posterior decompression from T10-T12 with laminectomy and complete left T11-12 facetectomy for excision of extradural lesion which appeared to be a synovial cyst 01/12/2023
Extension of fusion to T11-L1 01/19/2023
Cardiac catheterization 07/01/23
DH Symptomatic anemia, iron deficiency-07/05/2012
Plan
No current signs of metabolic encephalopathy or MS changes/following commands
Denies pain at this time.
Pain/sedation: off
RASS goals: 0
Hemodynamically unstable, requiring pressors.
Requiring pressors: levophed weaning down, off vaso
Cardiac history reviewed-- NICM with reduced EF, severe As noted on ECHO
Cards following
Prior ECHO reviewed below
Hold home meds while hypotensive
Monitor on telemetry
Elective intubation for bedside EGD 04/19/24
Extubation 04/10/24, tolerated well
Prior history of lung disease: none, no prior PFTs for review
Supplemental O2 as indicated to maintain sats > 89%
CXR/CT reviewed indicating no acute process
LGIB due to cecal ulcer/bleeding polypectomy site s/p epi and clip x 3
GI following
Resume diet when able
PPI IV
Repeat H&H
LEONARDO present, likely ATN in setting of hypovolemia/GIB/shock
Creat at baseline around 0.9, trend labs
Void trials
Follow urine output, critical I/Os
Replete electrolytes as needed
No signs/symptoms suspicious for infectious etiology at this time
Observe off antibiotics for now
Follow fever trend, WBC count
Bleeding, acute blood loss, history of anemia
Follow CBC
DVT prophylaxis as assessed based on risk, including mechanical SCDs
Can transfuse if indicated for Hb <7, plt < 10
Transfusions: 3 units given total, 4th on hold
INR WNL
No prior h/o thyroid disease
H/o diabetes, can continue on home meds, SS for coverage
HbA1c 7.4 (06/30/23)
Diagnostic Data
Chest X-Ray:04/19/24-No radiographic evidence of acute cardiopulmonary abnormality.
04/19/24- The the tracheal tube tip projects over the level of the verónica. Consider slight retraction.
CT Scan: AP 04/19/24- No findings to confirm active colonic bleeding. Rectal tube noted. Colonic diverticulosis. Diffuse gastric wall thickening again suggested. Extensive surgery of the lower thoracic spine with prominent beam hardening artifact
somewhat limiting evaluation of the organs of the upper abdomen. Subcentimeter low-attenuation splenic lesion too small to characterize.
Echo: 12/18/23- Normal biventricular size and systolic function without regional wall motion abnormality. Estimated LVEF 50-55%. Abnormal (paradoxical) septal motion consistent with left bundle branch block. Mild/moderate mitral regurgitation.
Moderate/severe aortic stenosis. The peak gradient across the valve is 46 mmHg with a mean of 26 mmHg. Using a LVOT diameter of 2.0 cm, the NILA is 0.8 cm sq. Mild aortic regurgitation. Compared to 09/10/23: LVEF has improved from 35-40% to 50-55%.
AR has improved from mild/moderate to mild.
09/10/23- -Left ventricular ejection fraction is 35-40%. Global hypokinesis. Abnormal (paradoxical) septal motion consistent with left bundle branch block. Normal right ventricular size and function.
-Mild to moderate mitral regurgitation. -Severe aortic stenosis; peak/mean gradients are 38/24 mmHg, calculated NILA 0.8 cm2. (These gradients are lower than expected for this degree of stenosis due to decreased left ventricular systolic
function.) -Mild to moderate aortic regurgitation (PHT = 400 ms). Compared to previous echo on 06/29/2023, there appears to be a slight improvement in LVEF (previously 30-35%). PASP has significantly decreased (previously 60- 65 mmHg).
PFT's:
Reports and relevant images were personally reviewed.
Critical Care time 35 mins -- The patient is admitted for acute critical illness for the treatment of vital organ failure and/or prevention of further life-threatening conditions. Total care includes time spent in review of history, physical exam,
medications, hemodynamic/ventilator parameters, laboratory data, imaging and discussion with house staff, pharmacy, respiratory therapy, hat body sorter, and nursing.
Subjective Dataa
Subjective Data
Date of Service:
Date of Service: April 20, 2024
Chief Complaint: Weasand Trimmer Follow Up
Subjective:
SBT trials -> extubate this AM
Doing well, no new complaints
Wants to eat
Objective Data
Data Reviewed
Vital Signs / I&O / Oxygen:
Vital Signs
Temp Pulse Resp BP Pulse Ox
98.3 F 52 14 139/58 100
04/20/24 03:50 04/20/24 06:20 04/20/24 06:20 04/20/24 06:00 04/20/24 07:08
Intake and Output
04/19/24 04/20/24 04/21/24
06:59 06:59 06:59
Intake Total 5381.1 / 5571.1 190 / 190
Output Total 1000 / 1000
Balance 4381.1 / 4571.1 190 / 190
SaO2 [A/C] 100
SaO2 100
Physical Exam
General: Comfortable and Other (NAD)
HEENT: Normocephalic, Anicteric and Moist Mucous Membranes
Cardiovascular: S1-S2 and Regular Rhythm
Respiratory: Clear and Non-Labored Respirations
GI: Soft, Non Distended and Non Tender
Neurology: Awake, Alert, Oriented and No Motor Deficits
Skin: Warm, Dry and Good Color
Labs/Micro/Reports
Laboratory Results
04/19/24
12:12
APTT Cancelled
--- NOTE | 2024-04-20 07:18 | PTCARENOTE ---
Addendum entered by Caryn Guzman RN 04/20/24 08:41:
pt nsr with bbb
Original Note:
pt received from previous rn- ett to vent- see settings as charted. pt on 15mcg of propofol, awake nodding yes and no appropriately and following commands. denies pain. levophed, vaso, protonix and ivf continue as per order. pt NSR to SB on the
monitor. at the bedside, education provided to both on plan of care- pt able to verbalize understanding. all safety precautions in place.
[2024-04-20 07:19] LABS: % Basophils 0.3 % (0-2); % Immature Granulocytes 2.2 % (0-0.5); % Lymphocytes 6.2 % (20.5-51.1); % Monocytes 5.2 % (1.7-9.3); % Neutrophils 86.1 % (42.2-75.2); Absolute Immature Granulocytes 0.3 10^3/uL (0-0.05); Absolute Monocytes 0.8 10^3/uL (0.1-0.6); Absolute Neutrophils 13.2 10^3/uL (1.4-6.5); Hematocrit 25.1 % (37.0-47.0); Mean Corp Hgb Conc. 35.9 g/dL (33.0-37.0); Mean Corpuscular Hgb 30.6 pg (27.0-31.0); Mean Corpuscular Volume 85.4 fL (81.0-99.0); Mean Platelet Volume 10.2 fL (7.4-10.4); Nucleated Red Blood Cells % 0 %; Platelet Count 202 10^3/uL (130-400); Red Blood Cell Count 2.94 10^6/uL (4.20-5.40); White Blood Cell Count 15.3 10^3/uL (4.8-10.8)
[2024-04-20 07:40] LABS: Blood Urea Nitrogen 49 mg/dl (7-17); Carbon Dioxide 9 mmol/L (22-30); Chloride 114 mmol/L (98-107); Estimated Creatinine Clearance 34 ml/min; Glucose 256 mg/dl (70-99); Potassium 5.5 mmol/L (3.5-5.1); Sodium 136 mmol/L (135-145); eGFR 38.27
--- NOTE | 2024-04-20 07:47 | PTCARENOTE ---
Dr. Chu notified of lab results. pt placed on wean, propofol off.
[2024-04-20 08:22] LABS: Magnesium 1.2 mg/dl (1.6-2.3)
--- NOTE | 2024-04-20 08:28 | W.PN.CD ---
Today's Communication / Plan
-
Metabolic acidosis. Bicarbonate 9. Patient awake alert intubated. Exact cause for drop not clear.
-Verifying labs and checking ABG additional management as per critical care team
-Hemoglobin 9 without report of acute bleeding overnight. Continued management as directed by GI
SBP 140. Appears they will be room to wean pressors. Patient on vasopressin and levo. Wean as tolerated.
Follow-up echo today.
Impression / Plan
-
78-year-old woman with history of moderate to severe aortic stenosis, left heart failure , nonischemic cardiomyopathy with previous ejection fraction 35% which was 50 to 55% by most recent echo, LBBB hypertension hypercholesterolemia diabetes, iron
deficiency anemia who presented to the hospital with bright red blood per rectum. Patient had colonoscopy and polypectomies 2 weeks ago. Patient now admitted to the ICU. Patient was felt to have hemorrhagic shock and hypotension and required
pressors. Patient required multiple units of PRBCs EGD today showed granular mucosa and cardia. No acute source of bleeding reported colon showed cecal ulcer but with visible vessel injected with epi and clipped erosions through colon a prior
polypectomy site but no high risk stigmata.
Patient remains intubated
Acute lower GI bleed.
-Patient given multiple units of PRBCs
-Now post colonoscopy and Treatment of cecal ulcer with visible vessel with injection and clip
-Additional treatment as directed by GI
-Hemoglobin 9 without report of acute bleeding overnight. Continued management as directed by GI
.
Hypotension. Patient reported to have hemorrhagic shock on presentation. Patient with hemoglobin 9.5 and just completed unit of PRBCs. Still remains on pressors.
-Continue to treat GI bleeding as directed by GI. Continue to monitor hemoglobin closely
-SBP 140 this morning patient on vasopressin and Levophed. Appears there will be room to wean pressors. Continue to wean pressors as tolerated.
.
Metabolic acidosis. Bicarbonate 9. Patient awake alert intubated. Exact cause for drop not clear.
-Verifying labs and checking ABG additional management as per critical care team
VDRF = weaning as per pulmonary/critical care team
.
Aortic stenosis. Moderate to severe by last echo report with mean gradient of 26 mmHg. Mean gradient was 16 mmHg in the setting of cardiomyopathy during cardiac catheterization 06/2023 and with dobutamine challenge was felt not to have severe
aortic stenosis.
Also patient with no evidence of significant coronary disease by the catheterization
-Follow-up echo this admission.
.
History of left heart failure nonischemic cardiomyopathy with improvement in left ventricular function by last echo..
-Echo to reassess left ventricular function
-Monitor volume status with administration of fluids and PRBC.
.
Hypotension. Patient reported to have hemorrhagic shock on presentation. Patient with hemoglobin 9.5 and just completed unit of PRBCs. Still remains on pressors.
-Continue to treat GI bleeding as directed by GI. Continue to monitor hemoglobin closely
-Wean pressors as tolerated
.
Mitral regurgitation mild to moderate by last echo
.
LBBB chronic
Physical Exam
Vital Signs/Labs
Vital Signs
Temp Pulse Resp BP Pulse Ox
98.2 F 61 6 141/53 100
04/20/24 07:33 04/20/24 08:05 04/20/24 08:05 04/20/24 08:00 04/20/24 08:05
04/19/24 04/20/24 04/21/24
06:59 06:59 06:59
Actual Weight 66.3 kg 67.7 kg
04/20/24 07:05
PT 14.4 Sec (11.4-14.6) 04/19/24 05:41
INR 1.08 04/19/24 05:41
APTT Cancelled 04/19/24 12:12
Magnesium 1.2 mg/dl (1.6-2.3) L 04/20/24 07:05
Triglycerides 189 mg/dl (10-149) H 04/19/24 17:10
Physical Exam
Constitutional: No acute distress and Other (Awake alert intubated)
Cardiovascular: Rhythm & rate is regular and Systolic murmur present
Respiratory: Wheeze Absent, Rhonchi Absent and Other (Intubated)
GI: Soft and Non tender
Neuro/Psych: Alert
Data Reviewed
-
Date of Service: April 20, 2024
Medical Decision Making: Reviewed Test Results
Echo: Report Reviewed by me
Medical Tests (PFT, Pathology etc): Report Reviewed by me
Labs: Labs Reviewed by me
--- NOTE | 2024-04-20 08:53 | W.PN.GI.CBS2 ---
Today's Communication / Plan
-
Hgb stable with no further bleeding
No plans for repeat procedures at this time so OK to extubate
Wean pressors
Will need eventual repeat EGD to biopsy granular mucosa in cardia
Assessment / Plan
-
Pt is a 77 yo female with a PMH significant for HTN, DM2, CHF, mod to severe , LETI, HH, GERD on Nexium, hx peptic ulcer, gastric polyps, colon polyps, hemorrhoids, presents with rectal bleeding.Pt just completed colonoscopy with Dr. Galeas with
multiple TA polyps, diverticulosis, lipoma internal hemorrhoids and lax sphincter tone. She also completed anorectal manometry 04/15. She now presents with sudden onset of rectal bleeding. Bleeding began at 3:30am on 04/19 with multiple large
volume stools since onset. On admission hbg 10.1 and BUN 52 up from prior 29. CTA on admission neg for bleeding source but noted gastric wall thickening, diverticulosis and some limitation with prior back surgery. Pt admits to hx diarrhea and
constipation. She did have some improved symptoms after colonoscopy and with use of fiber added. No hx underlying bleeding disorder but admits to bruising at times. No NSAID or AC use. + family hx colon ca in both parents requiring surgery.
04/19 EGD- Granular mucosa in cardia, not biopsied due to acute bleeding
04/19 COLON- Cecal ulcer w visible vessel injected epi and clip x 3, diverticulosis, blood in colon, erosions scattered through colon from prior polypectomy, tattoo
Impression:
LGIB due to post polypectomy ulcer in cecum w visible vessel s/p inject epi and clip x 3 04/19
-rectal bleeding
-anemia hx iron deficiency
-hypotension requiring pressors on admission
-colon polyp with recent colonoscopy with polyp resection 04/06
-hx diarrhea and constipation with recent rectal manometry prior to admission 04/15
-CT with gastric wall thickening
-GERD on chronic PPI
Other pertinent medical hx:
-mod to severe
-HH
-hx gastric polyps
-hemorrhoids
-PUD
-HTN
-DM2
-family hx colon CA
Subjective
Subjective
Date of Service: April 20, 2024
No further bleeding overnight. Remains on levophed and vasopressin. Awake on vent.
Objective
Data Reviewed
Laboratory Data:
Laboratory Results
04/20/24 07:05
Laboratory Results
PT 14.4 Sec (11.4-14.6) 04/19/24 05:41
INR 1.08 04/19/24 05:41
APTT Cancelled 04/19/24 12:12
Magnesium 1.2 mg/dl (1.6-2.3) L 04/20/24 07:05
Total Bilirubin 0.2 mg/dl (0.2-1.3) 04/19/24 05:41
AST 25 U/L (14-36) 04/19/24 05:41
ALT 21 U/L (0-35) 04/19/24 05:41
Alkaline Phosphatase 76 U/L (38-126) 04/19/24 05:41
Vital Signs and I&O:
Vital Signs
Temp Pulse Resp BP Pulse Ox
98.2 F 61 6 141/53 100
04/20/24 07:33 04/20/24 08:05 04/20/24 08:05 04/20/24 08:00 04/20/24 08:05
I&O
04/19/24 04/20/24 04/21/24
06:59 06:59 06:59
Intake Total 5381.1 / 5571.1 380 / 380
Output Total 1000 / 1000
Balance 4381.1 / 4571.1 380 / 380
Physical Exam
Physical Exam
GI: Soft, Non Distended and Non Tender
--- NOTE | 2024-04-20 09:01 | W.PN.HOSP.TC ---
Today's Communication/Plan
-
see A/P
Assessment / Plan
Assessment / Plan
HPI: 78-year-old female PMH HTN, HLD, CHF, IDDM, GERD, Iron deficiency anemia, p/w GIB/ BRBPR that started at 3 am in the morning of admission.
She denies to abd pain, change in BM, lightheadedness or shortness of breath.
Of note, she had colonoscopy 2 weeks [employer]TRACT[employer] LO[employer] UN[employer] with several polypectomies. She also had an urologic procedure done 3 days [employer] to assess her pelvic floor muscles.
She is not on blood thinner.
A/P:
# BRBPR
# Hemorrhagic/hypovolemic shock due to above, POA
# Iron deficiency anemia
CT AP Angio without active bleed
s/p IVF
Cont Levophed for BP support. Off vasopressin
transfused 3 units PRBC total
Iron panel reviewed
s/p emergent EGD and C scope on day of admission 04/19: EGD was unrevealing. C scope noted a single (solitary) ulcer in the cecum, injected and clips placed.
Continue Protonix drip
GI on board
Cont ICU level of care with pressor support
# Intubation for endoscopy given hypotension
Pt without respiratory failure
Cont vent support and SBT per Obstetrician Gynecologist
# Metabolic acidosis likely due to Hemorrhagic/hypovolemic shock
replace NSS with bicarb IVF
# Chronic HFrEF, stable
# History of aortic stenosis
# Hypertension
last echo 11/2023 with recovered EF 50-55% from 30-35%. Stage II diastolic dysfunction. Moderate/severe aortic stenosis.
Card on board
# IDDM
cover with sliding scale
resume EXTRACT[employer] LO[employer] UNLOAD[employer] insulin, oral hypoglycemic when able
# Hyperlipidemia
EXTRACT[employer] UN[employer] statin
# GERD
# Hypomagnesemia
Replete IV
DVT prophylaxis: SCD
Full code
DW RN
total time spent 51 min
Anticipated Discharge: > 48 hours
Subjective/Interval History
-
Date of Service: April 20, 2024
Objective Data
-
Labs:
Laboratory Results
04/20/24 04/20/24 04/20/24
04:50 04:50 04:50
WBC Cancelled
Hgb Cancelled Cancelled
Hct Cancelled Cancelled
Plt Count Cancelled
HCO3
Sodium Cancelled
Potassium Cancelled
Chloride Cancelled
Carbon Dioxide Cancelled
BUN Cancelled
Creatinine Cancelled
Glucose Cancelled
Calcium Cancelled
04/20/24 04/20/24 04/20/24
06:17 07:05 09:00
WBC 14.4 H 15.3 H
Hgb 9.2 L 9.0 L
Hct 25.8 L 25.1 L
Plt Count 173 D 202
HCO3 Pending
Sodium 126 L D 136 D
Potassium 5.2 H 5.5 H
Chloride 106 114 H
Carbon Dioxide 7 L* 9 L*
BUN 46 H 49 H
Creatinine 1.2 H 1.4 H
Glucose 545 H* 256 H
Calcium 7.2 L D 8.0 L
04/20/24 04/20/24
09:45 17:45
WBC
Hgb Pending Pending
Hct Pending Pending
Plt Count
HCO3
Sodium
Potassium
Chloride
Carbon Dioxide
BUN
Creatinine
Glucose
Calcium
Vital Signs:
Vital Signs
Temp Pulse Resp BP Pulse Ox
36.8 C 61 6 141/53 100
04/20/24 07:33 04/20/24 08:05 04/20/24 08:05 04/20/24 08:00 04/20/24 08:05
I&O
04/19/24 04/20/24 04/21/24
06:59 06:59 06:59
Intake Total 5381.1 / 5571.1 380 / 380
Output Total 1000 / 1000
Balance 4381.1 / 4571.1 380 / 380
Review of Systems
-
Unable to obtain full review of systems at this time due to: Patient Intubation
Physical Exam
-
General: Well Developed, Well Nourished, Comfortable and Intubated
HEENT: Normocephalic, Atraumatic, Nose Appears Normal and Ears Appear Normal
Respiratory: Clear to Auscultation and Non Labored Respirations; Negative Accessory Resp Muscle Use
Cardiac: Regular Rhythm and S1/S2
GI: Soft, Nontender, Nondistended and Normal Bowel Sounds
Skin: Warm and Dry
Neuro: Awake and Alert
Psych: Calm
Data Reviewed
-
Labs: Labs Reviewed by me
[2024-04-20 09:09] LABS: B.E. -13.2 mmol/L; O2 Saturation % 98.9 % (94-98); PCO2 23 mmHg (32-35); PO2 148 mmHg (83-108); pH 7.31 (7.35-7.45)
[2024-04-20 09:14] LABS: HCO3 11.6 mmol/L (21-28)
[2024-04-20 09:30] LABS: Glycohemoglobin (HgbA1c) 6.3 % (4.0-5.6)
[2024-04-20] MEDS: MAGNESIUM SULFATE 100 IV (09:30)
--- NOTE | 2024-04-20 09:59 | PTCARENOTE ---
pt extubated to room air, no complaints at this time. mag rider infusing as per order. pt repositioning self.
--- NOTE | 2024-04-20 10:12 | CM ---
Patient seen at bedside with also present. patient stated that she just got off of the Vent and is very happy to be able to talk at this time. Patient stated that she wanted CM to return but stated that nothing had changed since her last
admission. Patient previously had stated that she lived with her in a 2 story home and had a shower seat and rails. She also had a stairglide to second floor. There are 2 steps in from garage. Patient PCP Kendrick Ivory and she uses the
Pharmacy in [place] [address] Patient plan is for discharge home. CM will continue to follow for discharge planning needs.
Plan; home with VN vs home with no needs.
--- NOTE | 2024-04-20 11:25 | PTCARENOTE ---
pt with no urine output, bladder scanned >560- oob to commode, voided 300cc, bladder scan for 347. Dr. Oskar clark pt for clears. encourage pt clear po intake. no complaints at this time, vaso gtt off, weaning levophed.
[2024-04-20] MEDS: NOVOLOG FLEXPEN-HIGH RESISTANCE 2 UNITS SC ×2 (12:03→23:52)
[2024-04-20 12:12] LABS: Glucose - Point of Care 161 mg/dl (70-99)
[2024-04-20] MEDS: SODIUM BICARBONATE 1150 MEQ IV (12:40)
--- NOTE | 2024-04-20 13:05 | PTCARENOTE ---
Addendum entered by Caryn Guzman RN 04/20/24 13:39:
[facility] sent- results given to Dr. Yan- 4th unit of blood infusing.
Original Note:
pt with drop in bp, Dr. Yan aware and at bedside, bicarb gtt infusing, new order for picc line, levophed increased to maintain map>65. bp improved- pt states she is feeling better. remains on room air, nsr with lbbb.
[2024-04-20 13:08] LABS: Hematocrit 17.7 % (37.0-47.0); Hemoglobin 6.5 g/dL (12.0-16.0)
--- NOTE | 2024-04-20 14:18 | PTCARENOTE ---
Dr. Schmitt notified of hgb drop, no further orders at this time.
--- NOTE | 2024-04-20 14:57 | VATNOTE ---
Chest x-ray from post-PICC placement reviewed at this time, OK to use. PCN notified, instructed to change all IV tubings and remove all IVs from the pt's right arm.
--- NOTE | 2024-04-20 16:01 | PTCARENOTE ---
bp improved, blood transfusion continues. assessment unchanged. right picc c/d/i- flushes with good blood return
[2024-04-20 17:19] LABS: Glucose - Point of Care 120 mg/dl (70-99)
[2024-04-20] MEDS: NOVOLOG FLEXPEN SC (17:19)
[2024-04-20] MEDS: NOVOLOG FLEXPEN-HIGH RESISTANCE SC (17:19)
[2024-04-20 17:22] LABS: Hematocrit 26.7 % (37.0-47.0); Hemoglobin 9.3 g/dL (12.0-16.0)
--- NOTE | 2024-04-20 19:45 | PTCARENOTE ---
Received pt via handoff. Pt drowsy but AAOx3, able to move all extremities with generalized weakness throughout. Sinus Monster, +1 edema in lower extremities. 94% on RA, diminished throughout. Hypoactive bowel sounds in all 4Q. Purewick in draining
clear yellow urine. Skin CDI, with scattered ecchymosis on upper extremities. Gtts running see flowsheet. Call wheeler and at bedside.
[2024-04-20 22:26] LABS: Glucose - Point of Care 163 mg/dl (70-99)
[2024-04-21] VITALS (50 sets, daily range): BP systolic 94–156; BP diastolic 42–69; PULSE 79–81; O2SAT 95; BMI 22.2
--- NOTE | 2024-04-21 | PTCARENOTE ---
All systems reassessed, hygiene performed. Call wheeler at bedside.
[2024-04-21 00:02] LABS: Glucose - Point of Care 164 mg/dl (70-99)
[2024-04-21] MEDS: SODIUM BICARBONATE 1150 MEQ IV (03:11)
[2024-04-21 03:39] LABS: Hematocrit 24.3 % (37.0-47.0); Hemoglobin 8.7 g/dL (12.0-16.0)
[2024-04-21 03:43] LABS: Hematocrit 24.9 % (37.0-47.0); Hemoglobin 8.5 g/dL (12.0-16.0); Mean Corp Hgb Conc. 34.1 g/dL (33.0-37.0); Mean Corpuscular Hgb 30.1 pg (27.0-31.0); Mean Corpuscular Volume 88.3 fL (81.0-99.0); Mean Platelet Volume 10.3 fL (7.4-10.4); Platelet Count 158 10^3/uL (130-400); Red Blood Cell Count 2.82 10^6/uL (4.20-5.40); Red Cell Dist. Width 14.2 % (11.5-14.5); White Blood Cell Count 10.2 10^3/uL (4.8-10.8)
--- NOTE | 2024-04-21 04:00 | PTCARENOTE ---
All systems reassessed, labs drawn, hygiene performed.
[2024-04-21 04:15] LABS: Blood Urea Nitrogen 33 mg/dl (7-17); Calcium 8.4 mg/dl (8.4-10.2); Carbon Dioxide 19 mmol/L (22-30); Chloride 111 mmol/L (98-107); Estimated Creatinine Clearance 48 ml/min; Glucose 203 mg/dl (70-99); Magnesium 2.3 mg/dl (1.6-2.3); Sodium 140 mmol/L (135-145); eGFR 57.31
[2024-04-21] MEDS: NOVOLOG FLEXPEN-HIGH RESISTANCE 2 UNITS SC (05:47)
[2024-04-21 05:57] LABS: Glucose - Point of Care 175 mg/dl (70-99)
[2024-04-21] MEDS: LEVOPHED 250 IV (06:10)
--- NOTE | 2024-04-21 06:15 | W.PN.INTV ---
Addendum entered and electronically signed by Keiko Dewey, DO 04/22/24 07:33:
Transferred to tele, we will sign off at this time
Original Note:
Today's Communication / Plan
Recommendations
1 episode of anemia, responded well to transfusion of 1 unit yesterday
Hb stable this AM
Diet advancement per GI
OOB, PT today
Can likely transfer to tele if doing well today and tolerating meals without sign of further bleeding
Assessment
-
Patient is a 78-year-old female with previous history of hypertension, hyperlipidemia, congestive heart failure, diabetes presenting to ER with bright red blood per rectum that started at 3 AM, morning of admission. She denies abdominal pain,
lightheadedness, shortness of breath. Of note she had undergone recent outpatient colonoscopy 2 weeks ago and underwent several polypectomies. She had a urologic procedure done 3 days prior to arrival to assess her pelvic floor muscles. She has
never had GI bleeding in the past, denies any additional history of NSAID use. She does not take anticoagulation as an outpatient. In ER, hemoglobin was noted to be 10.1, she has had ongoing bleeding since admission. She is now admitted to ICU
for active bleeding.
Acute lower GI bleed s/p urgent colon at bedside 04/19/24
Bleeding polypectomy site/cecal ulcer s/p injected epi and clip x 3
Acute blood loss anemia
Bright red blood per rectum
Recent polypectomy procedure, 2 weeks prior
Hypotension, likely hypovolemic shock
Hyperkalemia
Metabolic acidosis
LEONARDO, creatinine 1.3 (BL 0.9�1.0)
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
diabetes mellitus type 2
hyperlipidemia
hypertension
Vitamin D deficiency
B/L hand surgery-dupuytrens contraction x6 surgeries
colon polyps
GERD
diverticulitis/hemorrhoids
sliding hiatal hernia
Gastric ulcer
Osteopenia
Diastolic dysfunction/CHF/Nonischemic cardiomyopathy EF 35-40%
Severe
hysterectomy
tonsillectomy
Oral surgery x2 09/2021
Posterior decompression from T10-T12 with laminectomy and complete left T11-12 facetectomy for excision of extradural lesion which appeared to be a synovial cyst 01/12/2023
Extension of fusion to T11-L1 01/19/2023
Cardiac catheterization 07/01/23
DH Symptomatic anemia, iron deficiency-07/05/2012
Plan
No current signs of metabolic encephalopathy or MS changes/following commands
Denies pain at this time.
Pain/sedation: off
RASS goals: 0
Hemodynamically stable, off pressors x 24 hours
Cardiac history reviewed-- NICM with reduced EF, severe As noted on ECHO
Cards following
Prior ECHO reviewed below
Resume home meds as tolerated
Monitor on telemetry
Elective intubation for bedside EGD 04/19/24
Extubation 04/10/24, tolerated well
Prior history of lung disease: none, no prior PFTs for review
Supplemental O2 as indicated to maintain sats > 89%
CXR/CT reviewed indicating no acute process
LGIB due to cecal ulcer/bleeding polypectomy site s/p epi and clip x 3
GI following
Resume diet when able
PPI IV
Repeat H&H -- transfused 1 additional unit 04/20, stable HB this AM
Chronic ETOH use noted, but no signs of w/d
LEONARDO present, likely ATN in setting of hypovolemia/GIB/shock--resolved
Creat at baseline around 0.9, trend labs
Void trials
Follow urine output, critical I/Os
Replete electrolytes as needed
No signs/symptoms suspicious for infectious etiology at this time
Observe off antibiotics for now
Follow fever trend, WBC count
Bleeding, acute blood loss, history of anemia
Follow CBC
DVT prophylaxis as assessed based on risk, including mechanical SCDs
Can transfuse if indicated for Hb <7, plt < 10
Transfusions: 3 units given total, 4th on hold
INR WNL
No prior h/o thyroid disease
H/o diabetes, can continue on home meds, SS for coverage
HbA1c 7.4 (06/30/23)
Diagnostic Data
Chest X-Ray:04/19/24-No radiographic evidence of acute cardiopulmonary abnormality.
04/19/24- The the tracheal tube tip projects over the level of the verónica. Consider slight retraction.
CT Scan: AP 04/19/24- No findings to confirm active colonic bleeding. Rectal tube noted. Colonic diverticulosis. Diffuse gastric wall thickening again suggested. Extensive surgery of the lower thoracic spine with prominent beam hardening artifact
somewhat limiting evaluation of the organs of the upper abdomen. Subcentimeter low-attenuation splenic lesion too small to characterize.
Echo: 12/18/23- Normal biventricular size and systolic function without regional wall motion abnormality. Estimated LVEF 50-55%. Abnormal (paradoxical) septal motion consistent with left bundle branch block. Mild/moderate mitral regurgitation.
Moderate/severe aortic stenosis. The peak gradient across the valve is 46 mmHg with a mean of 26 mmHg. Using a LVOT diameter of 2.0 cm, the NILA is 0.8 cm sq. Mild aortic regurgitation. Compared to 09/10/23: LVEF has improved from 35-40% to 50-55%.
AR has improved from mild/moderate to mild.
09/10/23- -Left ventricular ejection fraction is 35-40%. Global hypokinesis. Abnormal (paradoxical) septal motion consistent with left bundle branch block. Normal right ventricular size and function.
-Mild to moderate mitral regurgitation. -Severe aortic stenosis; peak/mean gradients are 38/24 mmHg, calculated NILA 0.8 cm2. (These gradients are lower than expected for this degree of stenosis due to decreased left ventricular systolic
function.) -Mild to moderate aortic regurgitation (PHT = 400 ms). Compared to previous echo on 06/29/2023, there appears to be a slight improvement in LVEF (previously 30-35%). PASP has significantly decreased (previously 60- 65 mmHg).
PFT's:
Reports and relevant images were personally reviewed.
Critical Care time 35 mins -- The patient is admitted for acute critical illness for the treatment of vital organ failure and/or prevention of further life-threatening conditions. Total care includes time spent in review of history, physical exam,
medications, hemodynamic/ventilator parameters, laboratory data, imaging and discussion with house staff, pharmacy, respiratory therapy, cloth bolt bander, and nursing.
Subjective Dataa
Subjective Data
Date of Service:
Date of Service: April 21, 2024
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
Subjective:
No acute events ON, no BMS
Hb remains in 8 range post transfusion
Objective Data
Data Reviewed
Vital Signs / I&O / Oxygen:
Vital Signs
Temp Pulse Resp BP Pulse Ox
98.0 F 95 18 123/65 95
04/21/24 03:26 04/21/24 05:45 04/21/24 05:45 04/21/24 05:30 04/21/24 05:45
Intake and Output
04/19/24 04/20/24 04/21/24
06:59 06:59 06:59
Intake Total 5381.1 / 5571.1 3319.8 / 3319.8
Output Total 1000 / 1000 4100 / 4100
Balance 4381.1 / 4571.1 -780.2 / -780.2
SaO2 [A/C] 100
SaO2 95
Physical Exam
General: Comfortable and Other (NAD)
HEENT: Normocephalic, Anicteric and Moist Mucous Membranes
Cardiovascular: S1-S2 and Regular Rhythm
Respiratory: Clear and Non-Labored Respirations
GI: Soft, Non Distended and Non Tender
Neurology: Awake, Alert, Oriented and No Motor Deficits
Skin: Warm, Dry and Good Color
Labs/Micro/Reports
Lab Data
04/21/24 03:22
04/21/24 03:22
Laboratory Results
04/20/24
09:00
pH 7.31 L
pCO2 23 L
pO2 148 H
HCO3 11.6 L*
O2 Delivery Level
--- NOTE | 2024-04-21 07:22 | PTCARENOTE ---
pt received from previous rn- aox3, at bedside. nsr with lbbb on monitor, room air, no complaints at this time. bicarb, protonix and levo continue. weaning levo as tolerated to maintain map>65. right picc c/d/i, flushes with good blood
return. pt able to turn and reposition self. and pt educated about plan of care- verbalized understanding. all safety precautions in place, call wheeler within reach.
--- NOTE | 2024-04-21 08:01 | W.PN.HOSP.TC ---
Today's Communication/Plan
-
see A/P
Assessment / Plan
Assessment / Plan
HPI: 78-year-old female PMH HTN, HLD, CHF, IDDM, GERD, Iron deficiency anemia, p/w GIB/ BRBPR that started at 3 am in the morning of admission.
She denies to abd pain, change in BM, lightheadedness or shortness of breath.
Of note, she had colonoscopy 2 weeks [employer] with several polypectomies. She also had an urologic procedure done 3 days [employer] to assess her pelvic floor muscles.
She is not on blood thinner.
A/P:
# BRBPR
# Hemorrhagic/hypovolemic shock due to above, POA
# Iron deficiency anemia
CT AP Angio without active bleed
s/p IVF
Cont Levophed for BP support. Off vasopressin
transfused 4 units PRBC total
Iron panel reviewed
s/p emergent EGD and C scope on day of admission 04/19: EGD was unrevealing. C scope noted a single (solitary) ulcer in the cecum, injected and clips placed.
Continue Protonix drip
GI on board
Cont ICU level of care with pressor support
# Intubated for endoscopy given hypotension
Pt without respiratory failure
extubated 04/20
# Metabolic acidosis likely due to Hemorrhagic/hypovolemic shock
s/p bicarb IVF
Improved metabolic acidosis
# Chronic HFrEF, stable
# History of aortic stenosis
# Hypertension
last echo 11/2023 with recovered EF 50-55% from 30-35%. Stage II diastolic dysfunction. Moderate/severe aortic stenosis.
Card on board
# IDDM
cover with sliding scale
resume [employer] insulin, oral hypoglycemic when able
# Hyperlipidemia
[employer] statin
# GERD
# Hypomagnesemia
Repleted IV
DVT prophylaxis: SCD
Full code
DW RN
DW at bedside
CC Mx for shock 41 min
Anticipated Discharge: 24 - 48 hours
Subjective/Interval History
-
Date of Service: April 21, 2024
Objective Data
-
Labs:
Laboratory Results
04/21/24 04/21/24 04/21/24
03:22 03:22 03:22
WBC 10.2
Hgb 8.5 L 8.7 L
Hct 24.9 L 24.3 L
Plt Count 158 D
Sodium 140
Potassium 4.0 D
Chloride 111 H
Carbon Dioxide 19 L
BUN 33 H
Creatinine 1.0
Glucose 203 H
Calcium 8.4
Vital Signs:
Vital Signs
Temp Pulse Resp BP Pulse Ox
36.6 C 84 23 135/58 95
04/21/24 07:21 04/21/24 06:30 04/21/24 06:30 04/21/24 06:30 04/21/24 07:26
I&O
04/20/24 04/21/24 04/22/24
06:59 06:59 06:59
Intake Total 5381.1 / 5571.1 3319.8 / 3444.8 125 / 125
Output Total 1000 / 1000 4100 / 4400 300 / 300
Balance 4381.1 / 4571.1 -780.2 / -955.2 -175 / -175
Review of Systems
-
All other systems: Reviewed and negative
Physical Exam
-
General: Well Developed, Well Nourished, No Apparent Distress, Comfortable and Conversant
HEENT: Normocephalic, Atraumatic, Nose Appears Normal and Ears Appear Normal
Respiratory: Clear to Auscultation and Non Labored Respirations; Negative Accessory Resp Muscle Use
Cardiac: Regular Rhythm and S1/S2
GI: Soft, Nontender, Nondistended and Normal Bowel Sounds
Skin: Warm and Dry
Neuro: Awake and Alert
Psych: Calm and Intact Judgement/Insight
Data Reviewed
-
Labs: Labs Reviewed by me
[2024-04-21] MEDS: PROTONIX 100 IV (08:21)
[2024-04-21] MEDS: NOVOLOG FLEXPEN SC ×3 (08:21→17:23)
[2024-04-21] MEDS: NSS 1000 IV ×2 (08:24→21:29)
--- NOTE | 2024-04-21 12:26 | W.PN.CD ---
Today's Communication / Plan
-
Continue to hold GDMT, adding back as indicated with clinical improvement.
Will follow.
Impression / Plan
-
78-year-old woman with history of moderate to severe aortic stenosis, left heart failure , nonischemic cardiomyopathy with previous ejection fraction 35% which was 50 to 55% by most recent echo, LBBB hypertension hypercholesterolemia diabetes, iron
deficiency anemia who presented to the hospital with bright red blood per rectum. Patient had colonoscopy and polypectomies 2 weeks ago. Patient now admitted to the ICU. Patient was felt to have hemorrhagic shock and hypotension and required
pressors. Patient required multiple units of PRBCs EGD today showed granular mucosa and cardia. No acute source of bleeding reported colon showed cecal ulcer but with visible vessel injected with epi and clipped erosions through colon a prior
polypectomy site but no high risk stigmata.
Acute lower GI bleedmwith hemorrhagic shock
-Patient given multiple units of PRBCs
-Now post colonoscopy and Treatment of cecal ulcer with visible vessel with injection and clip
Now weaned off vasopressors.
Will continue to hold antihypertensives for 1 more day, hopefully can add back on tomorrow
-Additional treatment as directed by GI
.
Metabolic acidosis. Improved.
-
VDRF = weaning as per pulmonary/critical care team
Extubated and doing well
.
Aortic stenosis. Moderate to severe by last echo report with mean gradient of 26 mmHg. Mean gradient was 16 mmHg in the setting of cardiomyopathy during cardiac catheterization 06/2023 and with dobutamine challenge was felt not to have severe
aortic stenosis.
Also patient with no evidence of significant coronary disease by the catheterization
-Follow-up echo this admission.
.
History of left heart failure nonischemic cardiomyopathy with improvement in left ventricular function by last echo.
-euvolemic
-Echo to reassess left ventricular function
-Monitor volume status with administration of fluids and PRBC.
.
Mitral regurgitation mild to moderate by last echo
.
LBBB chronic
Subjective:
she is without complaint. She has no cp or sob.
Physical Exam
Vital Signs/Labs
Vital Signs
Temp Pulse Resp BP Pulse Ox
97.9 F 68 17 128/58 95
04/21/24 11:12 04/21/24 12:05 04/21/24 12:05 04/21/24 12:00 04/21/24 11:55
04/20/24 04/21/24 04/22/24
06:59 06:59 06:59
Actual Weight 67.7 kg 68.1 kg
04/21/24 03:22
04/21/24 03:22
PT 14.4 Sec (11.4-14.6) 04/19/24 05:41
INR 1.08 04/19/24 05:41
APTT Cancelled 04/19/24 12:12
Magnesium 2.3 mg/dl (1.6-2.3) 04/21/24 03:22
Triglycerides 189 mg/dl (10-149) H 04/19/24 17:10
Physical Exam
Constitutional: No acute distress
Cardiovascular: Rhythm & rate is regular, Pedal edema is absent and Systolic murmur present
Respiratory: Respiratory effort normal, Lungs clear to auscul., Wheeze Absent, Crackles Absent and Rhonchi Absent
Neuro/Psych: AO x 3
Data Reviewed
-
Date of Service: April 21, 2024
Medical Decision Making: Review of Case with other Provider (Dr. Chu continue to hold GDMT add back when able.)
EKG: Other (Sinus on telemetry)
--- NOTE | 2024-04-21 12:53 | W.PN.GI.CBS2 ---
Today's Communication / Plan
-
clear liquid diet, serial H/H, monitor for bleeding
Assessment / Plan
-
Pt is a 77 yo female with a PMH significant for HTN, DM2, CHF, mod to severe , LETI, HH, GERD on Nexium, hx peptic ulcer, gastric polyps, colon polyps, hemorrhoids, presents with rectal bleeding 04/19 with recent cscope 04/06 repeat EGD/cscope
04/19 showed post polypectomy bleed with cecal ulcer with VV injected epi/clip x3. EGD with granular mucosa.
Drop in Hb and hypotension yesterday with no overt bleeding
Recommendations:
- clear liquid today (I added ensure clear) - if stable Hb in AM with no overt bleeding and no hypotension overnight can be advanced to low residue tmwr
- serial H/H
- discussed with pt/ rationale for holding BP/heart failure meds due to hypotension
- stop PPI gtt change to po
- needs outpatient EGD I will set up at her follow up appt
- has appt with me 05/12 at [place] 4pm
D/w nursing/hospitalist.
Subjective
Subjective
Date of Service: April 21, 2024
No overt bleeding
Objective
Data Reviewed
Laboratory Data:
Laboratory Results
04/21/24 03:22
04/21/24 03:22
Laboratory Results
PT 14.4 Sec (11.4-14.6) 04/19/24 05:41
INR 1.08 04/19/24 05:41
APTT Cancelled 04/19/24 12:12
Magnesium 2.3 mg/dl (1.6-2.3) 04/21/24 03:22
Total Bilirubin 0.2 mg/dl (0.2-1.3) 04/19/24 05:41
AST 25 U/L (14-36) 04/19/24 05:41
ALT 21 U/L (0-35) 04/19/24 05:41
Alkaline Phosphatase 76 U/L (38-126) 04/19/24 05:41
Vital Signs and I&O:
Vital Signs
Temp Pulse Resp BP Pulse Ox
97.9 F 68 17 128/58 95
04/21/24 11:12 04/21/24 12:05 04/21/24 12:05 04/21/24 12:00 04/21/24 11:55
I&O
04/20/24 04/21/24 04/22/24
06:59 06:59 06:59
Intake Total 5381.1 / 5571.1 3319.8 / 3444.8 595 / 595
Output Total 1000 / 1000 4100 / 4400 1000 / 1000
Balance 4381.1 / 4571.1 -780.2 / -955.2 -405 / -405
Physical Exam
Physical Exam
HEENT: Anicteric
Cardiology: Normal Sinus Rhythm
Pulmonary: Clear
GI: Non Distended and Non Tender
[2024-04-21 12:59] LABS: Glucose - Point of Care 132 mg/dl (70-99)
[2024-04-21] MEDS: NOVOLOG FLEXPEN-HIGH RESISTANCE 1 UNITS SC ×2 (13:01→17:22)
--- NOTE | 2024-04-21 13:15 | PTCARENOTE ---
GI md in to see pt- pt to remain on clears with ensure. ivf continue. protonix gtt off per order and levophed remains off. assessment unchanged. pt with tele orders.
--- NOTE | 2024-04-21 15:23 | PTCARENOTE ---
pt encouraged to get oob with rn and pt, pt refusing at this time despite education. pt turns and repositions self in bed.
--- NOTE | 2024-04-21 17:23 | PTCARENOTE ---
pt refusing lunch and dinner besides broth and water- md aware- sliding scale only given
[2024-04-21 17:30] LABS: Glucose - Point of Care 127 mg/dl (70-99)
--- NOTE | 2024-04-21 18:42 | PTCARENOTE ---
Dr. sánchez notified of hgb no new orders
--- NOTE | 2024-04-21 19:10 | PTCARENOTE ---
Received pt via handoff. Pt drowsy but AAOx3, able to move all extremities with generalized weakness throughout. Sinus Monster, +1 edema in lower extremities. 96% on RA, diminished throughout. Hypoactive bowel sounds in all 4Q. Purewick in draining
clear yellow urine. Skin CDI, with scattered ecchymosis on upper extremities. Gtts running see flowsheet. Call wheeler and at bedside.
[2024-04-22] VITALS (32 sets, daily range): BP systolic 97–158; BP diastolic 39–86; BMI 22.2
[2024-04-22] MEDS: NOVOLOG FLEXPEN-HIGH RESISTANCE 1 UNITS SC ×3 (00:17→11:49)
[2024-04-22 00:28] LABS: Glucose - Point of Care 144 mg/dl (70-99)
--- NOTE | 2024-04-22 01:18 | PTCARENOTE ---
All systems reassessed, hygiene performed, call wheeler at bedside.
[2024-04-22 03:46] LABS: Hematocrit 21.9 % (37.0-47.0); Hemoglobin 7.6 g/dL (12.0-16.0); Mean Corp Hgb Conc. 34.7 g/dL (33.0-37.0); Mean Corpuscular Hgb 31.4 pg (27.0-31.0); Mean Corpuscular Volume 90.5 fL (81.0-99.0); Mean Platelet Volume 10.2 fL (7.4-10.4); Platelet Count 139 10^3/uL (130-400); Red Blood Cell Count 2.42 10^6/uL (4.20-5.40); Red Cell Dist. Width 14.5 % (11.5-14.5); White Blood Cell Count 5.6 10^3/uL (4.8-10.8)
[2024-04-22 04:12] LABS: Blood Urea Nitrogen 19 mg/dl (7-17); Calcium 7.7 mg/dl (8.4-10.2); Carbon Dioxide 20 mmol/L (22-30); Chloride 114 mmol/L (98-107); Estimated Creatinine Clearance 60 ml/min; Glucose 132 mg/dl (70-99); Magnesium 1.7 mg/dl (1.6-2.3); Potassium 3.7 mmol/L (3.5-5.1); Sodium 142 mmol/L (135-145); eGFR > 60.00
[2024-04-22 06:04] LABS: Glucose - Point of Care 140 mg/dl (70-99)
[2024-04-22] MEDS: PROTONIX 40 MG PO (07:29)
[2024-04-22] MEDS: NOVOLOG FLEXPEN SC ×2 (07:37→11:49)
[2024-04-22 07:51] LABS: Glucose - Point of Care 143 mg/dl (70-99)
--- NOTE | 2024-04-22 08:01 | W.PN.HOSP.TC ---
Today's Communication/Plan
-
see A/P
Assessment / Plan
Assessment / Plan
HPI: 78-year-old female PMH HTN, HLD, CHF, IDDM, GERD, Iron deficiency anemia, p/w GIB/ BRBPR that started at 3 am in the morning of admission.
She denies to abd pain, change in BM, lightheadedness or shortness of breath.
Of note, she had colonoscopy 2 weeks [employer] with several polypectomies. She also had an urologic procedure done 3 days [employer] to assess her pelvic floor muscles.
She is not on blood thinner.
A/P:
# BRBPR
# Hemorrhagic/hypovolemic shock due to above POA, resolved
# Iron deficiency anemia
CT AP Angio without active bleed
s/p IVF
s/p Levophed and vasopressin
transfused 4 units PRBC total, Hgb today at 7.6, will transfuse another unit PRBC
Iron panel reviewed
s/p emergent EGD and C scope on day of admission 04/19: EGD was unrevealing. C scope noted a single (solitary) ulcer in the cecum, injected and clips placed.
Protonix drip -> PO 40 mg daily
GI on board
# Intubated for endoscopy given hypotension
Pt without respiratory failure. Pt extubated 04/20
# Metabolic acidosis likely due to Hemorrhagic/hypovolemic shock, improved
s/p bicarb IVF
monitor
# Chronic HFrEF, stable
# History of aortic stenosis
# Hypertension
last echo 11/2023 with recovered EF 50-55% from 30-35%. Stage II diastolic dysfunction. Moderate/severe aortic stenosis.
Card on board
# IDDM
cover with sliding scale
resume [employer] insulin, oral hypoglycemic when able
# Hyperlipidemia
[employer] statin
# GERD
# Hypomagnesemia
Repleted IV
DVT prophylaxis: SCD
Full code
DW GI
DW at bedside
Anticipated Discharge: 24 - 48 hours
Subjective/Interval History
-
Date of Service: April 22, 2024
Objective Data
-
Labs:
Laboratory Results
04/22/24 04/22/24
03:37 12:00
WBC 5.6
Hgb 7.6 L Pending
Hct 21.9 L
Plt Count 139
Sodium 142
Potassium 3.7
Chloride 114 H
Carbon Dioxide 20 L
BUN 19 H
Creatinine 0.8
Glucose 132 H
Calcium 7.7 L
Vital Signs:
Vital Signs
Temp Pulse Resp BP Pulse Ox
36.6 C 56 13 113/51 93
04/22/24 05:52 04/22/24 05:50 04/22/24 05:50 04/22/24 05:30 04/22/24 05:50
I&O
04/21/24 04/22/24 04/23/24
06:59 06:59 06:59
Intake Total 3319.8 / 3444.8 995 / 995
Output Total 4100 / 4400 2099 / 2099
Balance -780.2 / -955.2 -1105 / -1105
Review of Systems
-
All other systems: Reviewed and negative
Physical Exam
-
General: Well Developed, Well Nourished, No Apparent Distress, Comfortable and Conversant
HEENT: Normocephalic, Atraumatic, Nose Appears Normal and Ears Appear Normal
Respiratory: Clear to Auscultation and Non Labored Respirations; Negative Accessory Resp Muscle Use
Cardiac: Regular Rhythm and S1/S2
GI: Soft, Nontender, Nondistended and Normal Bowel Sounds
Skin: Warm and Dry
Neuro: Awake and Alert
Psych: Calm and Intact Judgement/Insight
Data Reviewed
-
Labs: Labs Reviewed by me
--- NOTE | 2024-04-22 08:42 | W.PN.GI.CBS2 ---
Today's Communication / Plan
-
hb at 12 - if stable advance diet, if ongoing drop will need repeat cscope
Assessment / Plan
-
Pt is a 77 yo female with a PMH significant for HTN, DM2, CHF, mod to severe , LETI, HH, GERD on Nexium, hx peptic ulcer, gastric polyps, colon polyps, hemorrhoids, presents with rectal bleeding 04/19 with recent cscope 04/06 repeat EGD/cscope
04/19 showed post polypectomy bleed with cecal ulcer with VV injected epi/clip x3. EGD with granular mucosa.
Drop in Hb and hypotension 04/20 with no overt bleeding - now hb with slight drift down
Recommendations:
- check Hb at noon - if stable will advance diet; if continues to drop will prep for cscope tmwr
- plan 1U PRBC after noon Hb
- discussed with pt/ rationale for holding BP/heart failure meds due to hypotension yesterday defer to primary team
- PPI po
- needs outpatient EGD I will set up at her follow up appt
- has appt with me 05/12 at [place] 4pm
D/w hospitalist and family at bedside.
Subjective
Subjective
Date of Service: April 22, 2024
slight drift down of Hb but no overt bleeding
feels weak
Objective
Data Reviewed
Laboratory Data:
Laboratory Results
04/22/24 03:37
Laboratory Results
PT 14.4 Sec (11.4-14.6) 04/19/24 05:41
INR 1.08 04/19/24 05:41
APTT Cancelled 04/19/24 12:12
Magnesium 1.7 mg/dl (1.6-2.3) 04/22/24 03:37
Total Bilirubin 0.2 mg/dl (0.2-1.3) 04/19/24 05:41
AST 25 U/L (14-36) 04/19/24 05:41
ALT 21 U/L (0-35) 04/19/24 05:41
Alkaline Phosphatase 76 U/L (38-126) 04/19/24 05:41
Vital Signs and I&O:
Vital Signs
Temp Pulse Resp BP Pulse Ox
97.8 F 56 13 113/51 93
04/22/24 08:00 04/22/24 05:50 04/22/24 05:50 04/22/24 05:30 04/22/24 05:50
I&O
04/21/24 04/22/24 04/23/24
06:59 06:59 06:59
Intake Total 3319.8 / 3444.8 995 / 995
Output Total 4100 / 4400 2100 / 2100
Balance -780.2 / -955.2 -1105 / -1105
Physical Exam
Physical Exam
HEENT: Anicteric
Cardiology: Normal Sinus Rhythm
Pulmonary: Clear
GI: Non Distended and Non Tender
--- NOTE | 2024-04-22 08:45 | PTCARENOTE ---
pt received from previous rn- aox3, at bedside. nsr with lbbb, occasional PAC/PVC on monitor, room air, no complaints at this time. IVF ordered to stop. right picc c/d/i, flushes with good blood return. pt able to turn and reposition self.
and pt educated about plan of care- verbalized understanding. all safety precautions in place, call wheeler within reach.
--- NOTE | 2024-04-22 09:29 | PTCARENOTE ---
PRBC 1 unit infusing as ordered.
[2024-04-22 11:58] LABS: Glucose - Point of Care 121 mg/dl (70-99)
--- NOTE | 2024-04-22 12:32 | PTCARENOTE ---
patient transferred to room 337-1 from ICU via bed. denies pain, abd round, nabsx4 quads, nontender, nondistended, vss, oriented to new room and call hweeler in reach, will continue to monitor.
[2024-04-22 12:40] LABS: Hemoglobin 9.5 g/dL (12.0-16.0)
--- NOTE | 2024-04-22 12:49 | PTCARENOTE ---
updated with hgb result of 9.5. She is advancing patient to 2000 calorie diabetic diet. patient made aware, will continue to monitor.
--- NOTE | 2024-04-22 12:49 | W.PN.UPDATE ---
Update Note
Progress Note Update
hb 9.5 ordered regular diet
--- NOTE | 2024-04-22 13:02 | PTCARENOTE ---
H/H drawn and sent. Report given to Emily on 3W. Pt to tele bed and transported to [facility]
--- NOTE | 2024-04-22 13:44 | CM ---
CM following re: discharge planning.
Reviewed pt's chart, met with p;t.
PT and OT evaluations noted. Pt is aware, politely declined having VN services. Pt stated she lives with , has 5 supportive children, has a great support and she will not need VN after care services. CM explained the benefits of VN services
and pt politely declined it.
IMM reviewed, placed on chart, pt has a copy.
D/C plan: home no needs, with family support. Family to transport at discharge.
CM will follow with discharge plan updates as needed.
--- NOTE | 2024-04-22 15:31 | PTCARENOTE ---
patient tolerated lunch, oob to [facility] with min assist x1, will continue to monitor.
[2024-04-22 16:38] LABS: Glucose - Point of Care 339 mg/dl (70-99)
[2024-04-22] MEDS: NOVOLOG FLEXPEN-HIGH RESISTANCE 10 UNITS SC (16:59)
[2024-04-22] MEDS: NOVOLOG FLEXPEN 4 UNITS SC (17:00)
[2024-04-22] MEDS: CRESTOR 5 MG PO (17:05)
[2024-04-22 21:37] LABS: Glucose - Point of Care 162 mg/dl (70-99)
[2024-04-23 03:24] VITALS: BP 135/68
[2024-04-23 06:00] VITALS: BMI 21.4
[2024-04-23 07:10] VITALS: BP 148/70
[2024-04-23 07:29] LABS: Platelet Count 191 10^3/uL (130-400)
[2024-04-23 07:40] LABS: Hematocrit 29.2 % (37.0-47.0); Hemoglobin 10.2 g/dL (12.0-16.0); Mean Corp Hgb Conc. 34.9 g/dL (33.0-37.0); Mean Corpuscular Hgb 31.5 pg (27.0-31.0); Mean Corpuscular Volume 90.1 fL (81.0-99.0); Mean Platelet Volume 9.8 fL (7.4-10.4); Red Blood Cell Count 3.24 10^6/uL (4.20-5.40); Red Cell Dist. Width 14.2 % (11.5-14.5); White Blood Cell Count 8.4 10^3/uL (4.8-10.8)
[2024-04-23 07:57] LABS: Blood Urea Nitrogen 20 mg/dl (7-17); Carbon Dioxide 23 mmol/L (22-30); Chloride 108 mmol/L (98-107); Estimated Creatinine Clearance 42 ml/min; Glucose 188 mg/dl (70-99); Potassium 3.9 mmol/L (3.5-5.1); Sodium 143 mmol/L (135-145)
[2024-04-23 08:11] LABS: Glucose - Point of Care 220 mg/dl (70-99)
[2024-04-23] MEDS: PROTONIX 40 MG PO (08:25)
[2024-04-23] MEDS: NOVOLOG FLEXPEN-HIGH RESISTANCE 4 UNITS SC (08:26)
[2024-04-23] MEDS: NOVOLOG FLEXPEN 4 UNITS SC (08:26)
--- NOTE | 2024-04-23 08:32 | W.PN.GI.CBS2 ---
Today's Communication / Plan
-
discharge planning, gi signing off
Assessment / Plan
-
Pt is a 77 yo female with a PMH significant for HTN, DM2, CHF, mod to severe , LETI, HH, GERD on Nexium, hx peptic ulcer, gastric polyps, colon polyps, hemorrhoids, presents with rectal bleeding 04/19 with recent cscope 04/06 repeat EGD/cscope
04/19 showed post polypectomy bleed with cecal ulcer with VV injected epi/clip x3. EGD with granular mucosa.
Recommendations:
- OK d/c GI POV
- PPI po (was on outpatient)
- needs outpatient EGD I will set up at her follow up appt
- has appt with me 05/12 at [place] 4pm
D/w hospitalist and family at bedside.
GI will sign off pls call with ?s
D/w hospitalist
Subjective
Subjective
Date of Service: April 23, 2024
brown bm
some rumbling, loose stool
weak but better than before
Objective
Data Reviewed
Laboratory Data:
Laboratory Results
04/23/24 06:22
04/23/24 06:22
Laboratory Results
PT 14.4 Sec (11.4-14.6) 04/19/24 05:41
INR 1.08 04/19/24 05:41
APTT Cancelled 04/19/24 12:12
Magnesium 1.7 mg/dl (1.6-2.3) 04/22/24 03:37
Total Bilirubin 0.2 mg/dl (0.2-1.3) 04/19/24 05:41
AST 25 U/L (14-36) 04/19/24 05:41
ALT 21 U/L (0-35) 04/19/24 05:41
Alkaline Phosphatase 76 U/L (38-126) 04/19/24 05:41
Vital Signs and I&O:
Vital Signs
Temp Pulse Resp BP Pulse Ox
97.8 F 82 18 148/70 97
04/23/24 07:10 04/23/24 07:10 04/23/24 07:10 04/23/24 07:10 04/23/24 07:10
I&O
04/22/24 04/23/24 04/24/24
06:59 06:59 06:59
Intake Total 995 / 995 1080 / 1080
Output Total 2100 / 2100 1000 / 1000
Balance -1105 / -1105 80 / 80
Physical Exam
Physical Exam
HEENT: Anicteric
Cardiology: Normal Sinus Rhythm
Pulmonary: Clear
GI: Non Distended and Non Tender
--- NOTE | 2024-04-23 10:36 | W.PN.HOSP.TC ---
Addendum entered and electronically signed by Maryam Chu MD 04/23/24 13:06:
total DC time 36 min
Original Note:
Today's Communication/Plan
-
for DC today
Assessment / Plan
Assessment / Plan
HPI: 78-year-old female PMH HTN, HLD, CHF, IDDM, GERD, Iron deficiency anemia, p/w GIB/ BRBPR that started at 3 am in the morning of admission.
She denies to abd pain, change in BM, lightheadedness or shortness of breath.
Of note, she had colonoscopy 2 weeks RECONCILEMENT CLERK with several polypectomies. She also had an urologic procedure done 3 days RECONCILEMENT CLERK to assess her pelvic floor muscles.
She is not on blood thinner.
A/P:
# BRBPR
# Hemorrhagic/hypovolemic shock due to above POA, resolved
# Iron deficiency anemia
CT AP Angio without active bleed
s/p IVF. s/p Levophed and vasopressin
s/p total 5 units PRBC
Hgb today at 10.2 , monitor CBC outpt with result to PCP
Iron panel reviewed
s/p emergent EGD and C scope on day of admission 04/19: EGD was unrevealing. C scope noted a single (solitary) ulcer in the cecum, injected and clips placed.
Protonix drip -> PO 40 mg daily
GI on board
# Intubated for endoscopy given hypotension
Pt without respiratory failure. Pt extubated 04/20
# Metabolic acidosis likely due to Hemorrhagic/hypovolemic shock, resolved
s/p bicarb IVF
# Chronic HFrEF, stable
# History of aortic stenosis
# Hypertension
last echo 11/2023 with recovered EF 50-55% from 30-35%. Stage II diastolic dysfunction. Moderate/severe aortic stenosis.
Card on board
# IDDM
cover with sliding scale
resume RECONCILEMENT CLERK insulin, oral hypoglycemic when able
# Hyperlipidemia
RECONCILEMENT CLERK statin
# GERD
# Hypomagnesemia
Repleted IV
DVT prophylaxis: SCD
Full code
DW GI
Anticipated Discharge: Today
Subjective/Interval History
-
Date of Service: April 23, 2024
Objective Data
-
Labs:
Laboratory Results
04/23/24
06:22
WBC 8.4
Hgb 10.2 L
Hct 29.2 L
Plt Count 191 D
Sodium 143
Potassium 3.9
Chloride 108 H
Carbon Dioxide 23
BUN 20 H
Creatinine 1.1 H
Glucose 188 H
Calcium 9.0
Vital Signs:
Vital Signs
Temp Pulse Resp BP Pulse Ox
36.6 C 82 18 148/70 97
04/23/24 07:10 04/23/24 07:10 04/23/24 07:10 04/23/24 07:10 04/23/24 07:10
I&O
04/22/24 04/23/24 04/24/24
06:59 06:59 06:59
Intake Total 995 / 995 1080 / 1080
Output Total 2100 / 2100 1000 / 1000
Balance -1105 / -1105 80 / 80
Review of Systems
-
All other systems: Reviewed and negative
Physical Exam
-
General: Well Developed, Well Nourished, No Apparent Distress, Comfortable and Conversant
HEENT: Normocephalic, Atraumatic, Nose Appears Normal and Ears Appear Normal
Respiratory: Clear to Auscultation and Non Labored Respirations; Negative Accessory Resp Muscle Use
Cardiac: Regular Rhythm and S1/S2
GI: Soft, Nontender, Nondistended and Normal Bowel Sounds
Skin: Warm and Dry
Neuro: Awake and Alert
Psych: Calm and Intact Judgement/Insight
Data Reviewed
-
Labs: Labs Reviewed by me
--- NOTE | 2024-04-23 10:52 | CM ---
CM following re: discharge planning.
Reviewed pt's chart, met with pt and pt's at bedside.
Discharge order noted. Both pt and her are aware, expressed their agreement. IMM reviewed yesterday.
Pt declined again VN services.
D/C plan: home no needs, with family support. to transport
[2024-04-23 11:08] VITALS: BP 110/66
--- NOTE | 2024-04-23 12:59 | W.DCSUMMARY ---
Discharge Summary
Discharge Data
Date of Admission: 04/19/24
Date of Discharge: 04/23/24
-
Pending Results: No
Hospital Course
Principal Diagnosis:
Hemorrhagic/hypovolemic shock due to GI bleed, likely due to ulcer in the cecum
Chronic Diagnoses:�
Iron deficiency anemia
Chronic heart failure with reduced ejection fraction
History of aortic stenosis
Hypertension
Insulin-dependent diabetes
Hyperlipidemia
Gastroesophageal reflux disease
Consultations:�
Gastroenterology
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
Procedures:�
Emergent EGD and C scope on day of admission 04/19: EGD was unrevealing. C scope noted a single (solitary) ulcer in the cecum, injected and clips placed.
Clinical course:�
This is a 78-year-old female with past medical history as stated above, who presented with GI bleed/bright red blood per rectum.
Of note, she had colonoscopy 2 weeks prior to admission and had several polypectomies.
Problem 1:
Hemorrhagic/hypovolemic shock due to GI bleed, likely due to ulcer in the cecum.
Her CT AP angio on admission did not show any active bleed.
She was supported with Levophed and vasopressin for hemorrhagic shock. Pressors were subsequently discontinued.
She received a total of 5 units PRBC transfusion during this admission.
Her hemoglobin was at 10.2 on the day of discharge. She can continue to monitor CBC outpatient with result to her PCP.
The patient underwent emergent EGD and C scope on day of admission on 04/19: her EGD was unrevealing. C scope noted a single (solitary) ulcer in the cecum, injected and clips placed.
As for the rest of her medical problems, they were stable during her hospital stay.
Discharge Plan
-
Patient Disposition: Home (Routine Discharge)
Discharge Diagnosis/Procedures: Hemorrhagic/hypovolemic shock due to GI bleed;
C scope noted a single (solitary) ulcer in the cecum, injected and clips placed.
Condition: Fair
Diet: As tolerated
Activity: As tolerated
Driving Restrictions: Not until seen by your Dr
Blood Work: CBC and BMP in 1 week, result to PCP
Referrals:
Kendrick Ivory, DO [Family Provider] - in less than 1 week
Prescriptions:
Continued
rosuvastatin 5 MG tablet
5 mg PO MOWEFR
Januvia 100 MG tablet
100 mg PO DAILY
biotin 5 mg Capsule
5 mg PO DAILY
metformin 500 mg tablet extended release 24 hr
500 mg PO QID
Rx Instructions:
1 in AM, 3 at HS
ferrous sulfate [Feosol] 325 MG tablet
325 mg PO DAILY
Patient Comments:
Vision Plus Lutein Tablet
1 tab PO DAILY
insulin glargine [Lantus Solostar U-100 Insulin] 100 unit/mL (3 mL) Insulin Pen
12 - 14 unit SC AC
Patient Comments:
06/29/2023, per pt., she uses this med. on a sliding scale; if her BS is around 210, she will take 12 units; if her BS is closer to 300, she will take 14 units. She injects this med. around dinner time every night.
vitamin [id number] acid 0.5-1 mg Tablet
1 tab PO DAILY
bisoprolol fumarate 5 mg Tablet
5 mg PO DAILY
esomeprazole magnesium 40 mg Capsule,Delayed Release(Dr/Ec)
40 mg PO DAILY
sacubitril-valsartan [Entresto] 24-26 mg Tablet
1 tab PO BID
furosemide [Lasix] 20 mg tablet
40 mg PO DAILYPRN PRN (Reason: Weight Gain)
Rx Instructions:
weight gain of 1-3 lbs/24 hours, 3-5 lbs/week
Jardiance 10 mg tablet
10 mg PO DAILY
Discharge Orders:
Discharge Patient (As Directed); Ordered 04/23/24
Ordered By: Maryam Chu
Discharge Date and Time
Discharge Date/Time: 04/23/24 11:27
Print Language: MALTESE
== END 2024-04-23 11:27 | disposition home or self-care (01) | DRG 377 ==
LOC: 3 WEST ACU 09:52
PROVIDERS: Emergency Medicine; Internal Medicine Gastroenterology; ADMITTING PHYSICIAN Internal Medicine; CONSULT PHYSICIAN Internal Medicine Cardiovascular Disease; CONSULT PHYSICIAN Specialist; EMERGENCY PHYSICIAN Emergency Medicine; FAMILY PHYSICIAN Family Medicine; OTHER PHYSICIAN Internal Medicine
PROC: 0DJ08ZZ Inspection of Upper Intestinal Tract, Via Natural or Artificial Opening Endoscopic (ICD-10-PCS; 2024-04-19)
PROC: 0DJD8ZZ Inspection of Lower Intestinal Tract, Via Natural or Artificial Opening Endoscopic (ICD-10-PCS; 2024-04-19)
PROC: 30233N1 Transfusion of Nonautologous Red Blood Cells into Peripheral Vein, Percutaneous Approach (ICD-10-PCS; 2024-04-19)
DX: K92.2 Gastrointestinal hemorrhage, unspecified (principal); R57.1 Hypovolemic shock; I50.22 Chronic systolic (congestive) heart failure; K63.3 Ulcer of intestine; E87.20 Acidosis, unspecified; D62 Acute posthemorrhagic anemia; K64.8 Other hemorrhoids; K62.1 Rectal polyp; K63.5 Polyp of colon; D17.5 Benign lipomatous neoplasm of intra-abdominal organs; I11.0 Hypertensive heart disease with heart failure; E11.649 Type 2 diabetes mellitus with hypoglycemia without coma; K21.9 Gastro-esophageal reflux disease without esophagitis; D50.8 Other iron deficiency anemias; E78.00 Pure hypercholesterolemia, unspecified; I35.0 Nonrheumatic aortic (valve) stenosis; Z79.4 Long term (current) use of insulin; E87.5 Hyperkalemia
CPT/HCPCS: 36600; 71045; 74174; 80048; 80053; 82607; 82728; 82746; 82805; 82962; 83036; 83540; 83550; 83735; 84478; 85014; 85018; 85025; 85027; 85610; 85730; 86850; 86900; 86901; 86920; 93005; 94002; 94003; 96361; 96374; 97162; 97166; 99291; P9016; Q9967

== ENCOUNTER 2024-05-23 06:19 | Day surgery (SDC) | payer MEDICARE, BC, SELFPAY ==
[2024-05-23 08:15] VITALS: BMI 30.9
[2024-05-23 08:16] VITALS: BMI 30.9
[2024-05-23 08:17] VITALS: BP 149/63
[2024-05-23 08:29] LABS: Glucose - Point of Care 114 mg/dl (70-99)
[2024-05-23 10:19] VITALS: BP 106/45
[2024-05-23 10:30] VITALS: BP 119/62
[2024-05-23 10:45] VITALS: BP 130/58
== END 2024-05-23 11:00 | disposition home or self-care (01) ==
LOC: SDS 06:19
PROVIDERS: ATTENDING PHYSICIAN Internal Medicine Gastroenterology
DX: K44.9 Diaphragmatic hernia without obstruction or gangrene (principal); K22.82 Esophagogastric junction polyp; K31.89 Other diseases of stomach and duodenum; Z87.19 Personal history of other diseases of the digestive system
CPT/HCPCS: 43239; 88305; 82962; 88342

== ENCOUNTER → 2024-06-08 10:57 | Outpatient (REF) | payer MEDICARE, BC, SELFPAY | LOC: RCS 10:57 | PROVIDERS: ATTENDING PHYSICIAN Internal Medicine; FAMILY PHYSICIAN Family Medicine | DX: I10 Essential (primary) hypertension (principal); I42.8 Other cardiomyopathies; I34.0 Nonrheumatic mitral (valve) insufficiency; I35.0 Nonrheumatic aortic (valve) stenosis | CPT/HCPCS: 93306 ==

== ENCOUNTER → 2025-02-24 14:32 | Outpatient (REF) | payer MEDICARE, BC, SELFPAY | LOC: RCS 14:32 | PROVIDERS: ATTENDING PHYSICIAN Internal Medicine; FAMILY PHYSICIAN Family Medicine | DX: I42.8 Other cardiomyopathies (principal); I34.0 Nonrheumatic mitral (valve) insufficiency; I35.0 Nonrheumatic aortic (valve) stenosis; I35.1 Nonrheumatic aortic (valve) insufficiency; I36.1 Nonrheumatic tricuspid (valve) insufficiency | CPT/HCPCS: 93306 ==